=== PATIENT | male | born 1960 | race Caucasian/White ===

== ENCOUNTER 2019-11-26 06:29 | Inpatient (IN) ==
--- NOTE | 2019-11-18 13:28 | History & Physical Report ---
Date of Service November 18, 2019 date of surgery: 11-26-19 Assessment & Plan (1) Degenerative arthritis of knee, bilateral: Risks and benefits of procedure discussed in detail today, patient would like to proceed with Bilateral total knee replacements at [facility] as scheduled. Will obtain PATs at [facility]. Will place on Xarelto x 1 month post op, f/u 2 weeks post op for routine post-operative care and x-ray, sooner if having any problems. will make arrangements for HHPT at the time of discharge. At this point in time, has failed conservative measures and would like to proceed with surgical intervention. History of Present Illness Chief Complaint: bilateral knee pain Primary Care Provider: DO Ben Mendenhall is a 59 year old male that complains of Bilateral knee pain, presents for pre-op evaluation prior to Bilateral total knee replacements by dr Díaz at [facility]. He complains of pain, crepitus, decreased range of motion, instability and stiffness in both knees. He states that the symptoms have been chronic and non- traumatic. He states that the symptoms occur constantly with intermittent worsening. Currently the patient states that the symptoms are moderate-severe. The pain is described as aching, sharp and throbbing. The symptoms occur continuously. The symptoms are aggravated by ascending stairs, daily activities, first steps while awake walking. Prior NSAIDs include IBU and Aleve. He has been treated with previous cortisone and visco injections in the past without much relief. Allergies Allergy/AdvReac Type Severity Reaction Status Date / Time No Known Allergies Allergy Verified 08/06/19 11:41 Home Medications Home Medications Medication Instructions Recorded Confirmed Type meloxicam 15 mg PO QAM PRN 08/06/19 08/06/19 History Past Med/Surg History Social History Preferred Language: Bangladeshi Communication Ability: Effective Medical Auditor Required: No Beliefs That Will Affect Care: None Current Living Situation: Spouse Feels Safe at Home: Yes Smoking Status: Never smoker Tobacco Type: smokeless tobacco ; Second Hand Exposure: No ; Hx Alcohol Use: Yes Alcohol type: beer Hx Substance Use: No Review of Systems Review of Systems: All systems reviewed & are unremarkable except as noted in HPI & below Constitutional: no fever, no chills and no sweats Respiratory: no cough and no dyspnea Cardiovascular: no chest pain, no dyspnea and no orthopnea Gastrointestinal: no abdominal pain, no nausea and no vomiting Musculoskeletal: as per Subjective / HPI Physical Exam Physical Exam: Ht: 6ft Wt: 104.3kg BP: 122/78 Pulse: 82 Constitutional: WD/WN, vitals as above no acute distress Respiratory: normal respiratory effort, lungs clear to auscultation no respiratory distress, no labored breathing and does not use accessory muscles Cardiovascular: RRR, no murmur, no edema Gastrointestinal (Abdomen): normal bowel sounds, soft, nontender, no hepatosplenomegaly Musculoskeletal: Bilateral knee Physical exam Overall varus alignment bilaterally, there is no atrophy or ecchymosis noted, he does have +2 suprapatellar effusion in both knees, tenderness present to both medial and lateral joint lines of the right knee, more medial sided tenderess to the left knee. negative patellar apprehension, he does have crepitation noted to both knees with active ROM. bilateral knees stable to valgus and varus stress, oneal negative, posterior drawer negative. Range of motion right knee 0/3/110, left knee 0/3/115. lower extremities are neurovascularly intact, calf soft and non tender, DP pulse +2 bilaterally. Results & Data Results & Data ([facility]) Diagnostic Findings Bilateral Knee X-ray: bilateral knee series confirm advanced degenerative changes bilateral knees, greatest medial compartments and patellofemoral joints, showing joint space narrowing, osteophyte formation and subchondral sclerosis. no acute bony pathology noted.
--- NOTE | 2019-11-22 08:49 | Anesthesiology Consultation ---
Date of Service November 22, 2019 Assessment & Plan (1) Encounter for pre-operative examination: Chart Review Chart Review: Acceptable Risk for Surgery (pending 11/21 Covid testing) and Patient NOT seen in Pre Admission Testing Per nursing assessment 11/21/19, no recent travel. Preop Covid testing being done at [facility] on 11/21. Seen by PCP 08/16/19= "Pt medically stable for planned procedure" History Surgery Operation Date: 11/26/19 08:45 Proposed Procedures p Bilateral Total Knee Arthroplasty - Ben Díaz DO Height/Weight Height: 6 ft Weight: 102.058 kg Allergies Allergy/AdvReac Type Severity Reaction Status Date / Time No Known Allergies Allergy Verified 11/21/19 15:43 Medications Home Medications Medication Instructions Recorded Confirmed Last Taken meloxicam 15 mg PO QAM PRN 08/06/19 11/21/19 Unknown Past Medical History Medical History Osteoarthritis Past Family History Family History Grandmother (Paternal) Diabetes Past Surgical History Surgical History History of adenoidectomy History of tonsillectomy History of tooth extraction Social History Smoking Status: Never smoker tobacco type: smokeless tobacco Do You Dip or Chew Tobacco: No (1 can per day) Hx Alcohol Use: Yes Alcohol type: beer alcohol intake frequency: a few times a month Hx Substance Use: No substance use type: does not use Testing Laboratory Results Laboratory Tests 11/14/19 11/14/19 11/14/19 17:13 17:13 17:13 WBC 7.38 Hgb 14.8 Hct 42.9 Plt Count 279 PT 11.7 INR 1.1 APTT 29.4 Sodium 139 Potassium 3.6 Chloride 108 H Carbon Dioxide 26 BUN 18 Creatinine 0.94 Glucose 95 Hemoglobin A1c 11/14/19 17:13 WBC Hgb Hct Plt Count PT INR APTT Sodium Potassium Chloride Carbon Dioxide BUN Creatinine Glucose Hemoglobin A1c 5.1 UA 11/14/19= Negative Electrocardiogram Date: 08/12/19 Findings: + SB @ (57) Chest X-Ray Date: 08/12/19 Findings: + NAD
[~2019-11-26 06:29] MED LIST: ACETAMINOPHEN 500 MG TAB PO SCH; CEFAZOLIN 2000MG 2,000 MG/15 ML SYR IV SCH; CeleBREX 200 MG CAP PO SCH; FAMOTIDINE 20 MG TAB PO SCH; GABAPENTIN 600 MG DOSE PO SCH; LR 500ML BOLUS, THEN 15ML/HR IV SCH; METOCLOPRAMIDE HCL 10 MG TABLET PO SCH; OXYCODONE HCL 10 MG TABCR (OXYCONTIN) PO SCH; ROPIVACAINE 0.5% HCL/PF 150 MG, BUPIVACAINE 0.5% MPF 30 ML, EPINEPHrine 30MG/30ML (OR U... INSTIL SCH; TRANEXAMIC ACID 1,000 MG **IV Intra-op IV SCH; TRANEXAMIC ACID 1,000 MG **IV Pre-op IV SCH
[2019-11-26] MEDS ORDERED: BUPIVACAINE 0.5 % 5 MG/1 ML PF 10ML VIAL ONE (06:39)
[2019-11-26] MEDS ORDERED: ROPIVACAINE 0.5% 5 MG/ML 30 ML VIAL ONE (06:39)
[2019-11-26] MEDS ORDERED: MIDAZOLAM HCL 1 MG/ML 2ML VIAL ONE (07:20)
[2019-11-26] MEDS ORDERED: PROPOFOL IV EMULSION 10 MG/ML 20 ML VIAL IV ONE ×2 (07:20→12:35)
[2019-11-26] MEDS ORDERED: LIDOCAINE HCL 2% 2 ML VIAL/AMP(20MG/ML) INFIL ONE (07:20)
--- NOTE | 2019-11-26 07:20 | History & Physical Bridge Note ---
Date of Service November 26, 2019 History & Physical Bridge Note I have examined the patient, reviewed the History & Physical and in the interval since the performance of the History & Physical I have noted the following changes of clinical significance: no changes noted
[2019-11-26] MEDS ORDERED: ORTHO JOINT ANESTHETIC ONE (08:06)
[2019-11-26] MEDS ORDERED: BACITRACIN INJ 50,000 UNIT VIAL ONE (08:06)
--- NOTE | 2019-11-26 12:24 | Operative Report ---
Post Operative Report Pre & Post Diagnosis Operation Date: 11/26/19 08:35 Pre-Op Diagnosis: Bilateral Knee Osteoarthritis Post-Op Diagnosis: Bilateral Knee Osteoarthritis I identified the patient and participated in the time-out.: Yes Procedure Operation Date: 11/26/19 08:35 Actual Procedures p Bilateral Total Knee Arthroplasty(Bilateral) utilizing [employer]ph[employer] 101 journey 2 with blocks patient matched total knee arthroplasty right size 9 femur size 8 tibia size 10 polyethylene/41 patella left size 9 femur size 8 tibia size 11 polyethylene/41 patella- Ben Díaz DO Surgeon Ben Díaz DO Air Route Controller Hussein MUNGUIA Estimated Blood Loss 20 Findings Consistent with Post-Op Diagnosis Patient presents with severe end-stage tricompartmental degenerative joint disease bilateral knees with bilateral varus alignment subchondral osteophytes marginal osteophytes subchondral sclerosis with cystic changes eburnated [id number] varus alignment and moderate to large effusion Specimens Bone and cartilage Drains Medium bore Hemovac Anesthesia Type MAC Spinal Regional Disposition Accompanied Patient To Recovery: Yes Disposition: Recovery Room Indications Patient has severe end-stage tricompartmental degenerative joint disease with failed attempted conservative management daily injections anti-inflammatories relative rest activity modification corticosteroid injection bracing relative rest activity modification patient presents with the above intraoperative findings Description of Procedure After proper prepping and draping of the bilateral lower extremities, an anterior midline incision was made over the region of the extensor extensor mechanism of the left knee. After meticulous hemostasis was obtained and maintained in subcutaneous tissues a medial parapatellar incision was made The patella was subluxed lateralward the medial lateral gutter were cleaned from any hypertrophic synovitis and scar tissue of the distal femoral block was placed and the distal femoral osteotomy cut was made subsequently the chamfers anterior and posterior osteotomy cuts were made utilizing the 4-in-1 block the tibia was subsequently subluxed anteriorward medial and ateral meniscal remnants were excised in their entirety remnants of the anterior and posterior cruciate ligaments were excised in their entirety excellent exposure of the proximal tibia was obtained the tibial osteotomy guide was placed on the proximal tibial osteotomy cut was made once again the knee was irrigated with copious amounts of sterile saline solution the patella was subsequently everted lateralward thickened scar tissue around the patella was removed the patella was subsequently cut utilizing a freehand technique and was drilled prepared for final preparation and placement of patella socially flexion-extension gaps were checked and the equal and symmetric trials were placed to the appropriate femoral and tibial trials with poly-spacer being placed for equal flexion and extension gaps and full range of motion including extension to 0 and flexion to 140 the trial components after having been taken to recovery range of motion was subsequently removed meticulous hemostasis was obtained and maintained subsequently a knee block injection of joint cocktail including ropivacaine 0.5% 150 mg. Bupivacaine 0.5% epinephrine 1-200,030 mL's toradol 30 mg dexamethasone 4 mg ketamine 10 mg clonidine 100 micrograms normal saline solution 30 mg was infiltrated into the soft tissues of the posterior knee medial lateral gutters and periosteal synovium special attention was paid to protect neurovascular structures at all times subsequently trial components having been removed the knee was irrigated with sterile saline solution. debris was removed the proximal tibia was subsequently prepared and was made ready for the placement of the tibial component tibial component was also cemented and tamped into position the femoral component was subsequently placed and cemented in the position the patellar component was subsequently cemented in position because hemostasis once again obtained and maintained wound having been thoroughly irrigated with debridement and debridement lavage was performed as well as a medial parapatellar incision closed with #1 Vicryl in interrupted fashion subcutaneous was closed with #2 Vicryl skin was closed with skin clips Next, an anterior midline incision was made over the region of the extensor extensor mechanism of the right knee. After meticulous hemostasis was obtained and maintained in subcutaneous tissues a medial parapatellar incision was made The patella was subluxed lateralward the medial lateral gutter were cleaned from any hypertrophic synovitis and scar tissue of the distal femoral block was placed and the distal femoral osteotomy cut was made subsequently the chamfers anterior and posterior osteotomy cuts were made utilizing the 4-in-1 block the tibia was subsequently subluxed anteriorward medial and ateral meniscal remnants were excised in their entirety remnants of the anterior and posterior cruciate ligaments were excised in their entirety excellent exposure of the proximal tibia was obtained the tibial osteotomy guide was placed on the proximal tibial osteotomy cut was made once again the knee was irrigated with copious amounts of sterile saline solution the patella was subsequently everted lateralward thickened scar tissue around the patella was removed the patella was subsequently cut utilizing a freehand technique and was drilled prepared for final preparation and placement of patella socially flexion-extension gaps were checked and the equal and symmetric trials were placed to the appropriate femoral and tibial trials with poly-spacer being placed for equal flexion and extension gaps and full range of motion including extension to 0 and flexion to 140 the trial components after having been taken to recovery range of motion wa s subsequently removed meticulous hemostasis was obtained and maintained subsequently a knee block injection of joint cocktail including ropivacaine 0.5% 150 mg. Bupivacaine 0.5% epinephrine 1-200,030 mL's toradol 30 mg dexamethasone 4 mg ketamine 10 mg clonidine 100 micrograms normal saline solution 30 mg was infiltrated into the soft tissues of the posterior knee medial lateral gutters and periosteal synovium special attention was paid to protect neurovascular structures at all times subsequently trial components having been removed the knee was irrigated with sterile saline solution. debris was removed the proximal tibia was subsequently prepared and was made ready for the placement of the tibial component tibial component was also cemented and tamped into position the femoral component was subsequently placed and cemented in the position the patellar component was subsequently cemented in position because hemostasis once again obtained and maintained wound having been thoroughly irrigated with debridement and debridement lavage was performed as well as a medial parapatellar incision closed with #1 Vicryl in interrupted fashion subcutaneous was closed with #2 Vicryl skin was closed with skin clips.. PA-C was necessary for prepping and drapping as well as wound closure of deep fascia Sub cutaneous tissue and skin and was necessary for the case. A sterile compressive dressings were placed, patient was taken to recovery in stable condition of report dictated by Arjun I attest to the content of the Intraoperative Record and any orders documented therein. Any exceptions are noted below. I attest to the content of the Intraoperative Record and any orders documented therein. Any exceptions are noted below.
--- NOTE | 2019-11-26 13:35 | XRay Report ---
XR knee RT 1 or 2V routine CLINICAL HISTORY: Surgical Post Op COMPARISON: None FINDINGS: Alignment of the total right knee arthroplasty is anatomic. There is no fracture or unexpe cted radiopaque foreign body. There are drains and skin natasha. IMPRESSION: Expected findings following total right knee arthroplasty. ACT 112: Negative or not required by law. Electronically signed by: Gary Davis M.D. 11/26/2019 1:34 PM
--- NOTE | 2019-11-26 13:36 | XRay Report ---
XR knee LT 1 or 2V routine CLINICAL HISTORY: Surgical Post Op COMPARISON: None. DISCUSSION: Anatomic alignment post total left knee arthroplasty. Could contact between prosthetic an d underlying bone. Expected soft tissue postoperative change. IMPRESSION: Anatomic alignment post total left knee arthroplasty. ACT 112: Negative or not required by law. The above report was generated using voice recognition software. It may contain grammatical, syntax or spelling errors. Electronically signed by: Jordan Solano M.D. 11/26/2019 1:35 PM
--- NOTE | 2019-11-26 14:22 | Anesthesiology Progress Note ---
Date of Service November 26, 2019 Anesthesia Post Procedure Vital Signs Vital Signs: Temp Pulse Pulse Resp BP Pulse Ox 11/26/19 14:15 42 L 17 99/68 L 97 11/26/19 14:05 36.1 C L 43 L 17 123/51 L 95 11/26/19 13:55 43 L 19 102/68 98 11/26/19 13:45 47 L 15 93/66 L 95 11/26/19 13:35 43 L 14 96/50 L 98 11/26/19 13:25 44 L 16 99/62 L 96 11/26/19 13:16 36.0 C L 46 L 19 93/60 L 96 11/26/19 06:45 36.8 C 64 18 111/79 97 Transfer of Care Handoff Completed per policy Notes Mental Status: alert / awake / arousable and participated in evaluation Patient Amnestic to Procedure: Yes Nausea / Vomiting: adequately controlled Pain: adequately controlled Airway Patency, RR, SpO2: stable & adequate BP & HR: stable & adequate Hydration State: stable & adequate Neuraxial Anesthesia: was administered and sensory block is resolving Anesthetic Complications: no major complications apparent
[2019-11-26] MEDS ORDERED: HYDROmorphone INJ 0.5 MG/0.5 ML SYR IV PRN (14:46)
[2019-11-26] MEDS ORDERED: MAGNESIUM HYDROXIDE SUSP 30 ML UDC PO PRN (14:46)
[2019-11-26] MEDS ORDERED: NALOXONE HCL 0.4 MG/1 ML VIAL/CARP IV PRN (14:46)
[2019-11-26] MEDS ORDERED: bisacodyL 10 MG SUPP PR PRN (14:46)
[2019-11-26] MEDS ORDERED: ONDANSETRON INJ 2 MG/ML 2 ML VIAL IV PRN (14:46)
[2019-11-26] MEDS: ACETAMINOPHEN 500 MG TAB PO SCH ×2 (16:10→23:25)
[2019-11-26] MEDS: KETOROLAC TROMETHAMINE 15 MG/ML VIAL IV SCH ×2 (16:11→21:21)
[2019-11-26] MEDS: CEFAZOLIN 2000MG 2,000 MG/15 ML SYR IV SCH (17:47)
[2019-11-26] MEDS: FERROUS GLUCONATE 324 MG TAB PO SCH (17:48)
[2019-11-26] MEDS: SENNA 8.6 MG TAB PO SCH (20:15)
[2019-11-26] MEDS: SODIUM CHLORIDE 0.9% 1000ML 1,000 ML IV SCH (20:15)
[2019-11-26] MEDS: DOCUSATE SODIUM 100 MG CAP PO SCH (20:15)
[2019-11-26] MEDS: OXYCODONE HCL IR 5 MG TAB (IMMEDIATE RELEASE) PO PRN (20:15)
[2019-11-27] MEDS: SODIUM CHLORIDE 0.9% 1000ML 1,000 ML IV SCH (02:07)
[2019-11-27] MEDS: CEFAZOLIN 2000MG 2,000 MG/15 ML SYR IV SCH (02:58)
[2019-11-27] MEDS: KETOROLAC TROMETHAMINE 15 MG/ML VIAL IV SCH ×4 (02:59→20:46)
[2019-11-27 05:31] LABS: Mean Corpuscular Hemoglobin 30.7 pg (25-34); Mean Corpuscular Hgb Conc 34.2 g/dL (32-36); Mean Corpuscular Volume 89.6 fL (80-100); Mean Platelet Volume 9.9 fL (7.4-10.4); Platelet Count 240 K/uL (130-400); RDW Coefficient of Variation 13.2 % (11.5-14.5); RDW Standard Deviation 43.2 fL (36.4-46.3); Red Blood Count 4.24 M/uL (4.7-6.1); White Blood Count 15.05 K/uL (4.8-10.8)
[2019-11-27 06:07] LABS: Calcium 8.4 mg/dl (8.5-10.1); Creatinine Clr Calc Pharmacy 96.6 ml/min; Est GFR (African American) 96.1; Est GFR (Non-African American) 82.9; Potassium 4.6 mmol/L (3.5-5.1)
[2019-11-27] MEDS: OXYCODONE HCL IR 5 MG TAB (IMMEDIATE RELEASE) PO PRN ×2 (07:28→22:23)
[2019-11-27] MEDS: ACETAMINOPHEN 500 MG TAB PO SCH ×3 (07:29→23:24)
--- NOTE | 2019-11-27 07:54 | Anesthesiology Progress Note ---
Date of Service November 27, 2019 Anesthesia Post Procedure Vital Signs Vital Signs: Temp Pulse Pulse Resp BP Pulse Ox 11/27/19 06:53 36.9 C 60 16 107/58 L 100 11/27/19 03:02 36.6 C 52 L 18 101/53 L 97 11/26/19 23:49 36.6 C 51 L 16 110/67 95 11/26/19 20:40 36.6 C 51 L 16 119/66 97 11/26/19 17:38 36.6 C 50 L 17 118/71 95 11/26/19 16:29 42 L 16 128/81 100 11/26/19 15:41 36.4 C L 41 L 15 123/76 98 11/26/19 15:00 36.5 C 41 L 17 117/72 97 11/26/19 14:30 36.4 C L 44 L 16 106/64 99 11/26/19 14:15 42 L 17 99/68 L 97 11/26/19 14:05 36.1 C L 43 L 17 123/51 L 95 11/26/19 13:55 43 L 19 102/68 98 11/26/19 13:45 47 L 15 93/66 L 95 11/26/19 13:35 43 L 14 96/50 L 98 11/26/19 13:25 44 L 16 99/62 L 96 11/26/19 13:16 36.0 C L 46 L 19 93/60 L 96 Pain Intensity Bilateral Knee: Pain Intensity: 0 Notes Mental Status: alert / awake / arousable and participated in evaluation Patient Amnestic to Procedure: Yes Nausea / Vomiting: adequately controlled Pain: adequately controlled Airway Patency, RR, SpO2: stable & adequate BP & HR: stable & adequate Hydration State: stable & adequate Neuraxial Anesthesia: was administered and sensory block resolved Anesthetic Complications: no major complications apparent
[2019-11-27] MEDS: DOCUSATE SODIUM 100 MG CAP PO SCH ×2 (08:43→20:46)
[2019-11-27] MEDS: FERROUS GLUCONATE 324 MG TAB PO SCH ×2 (08:43→17:22)
[2019-11-27] MEDS: RIVAROXABAN 10 MG TABLET PO SCH (08:43)
[2019-11-27] MEDS: MULTIVITAMIN TAB PO SCH (08:43)
--- NOTE | 2019-11-27 09:48 | Orthopedic Progress Note ---
Date of Service November 27, 2019 Assessment & Plan (1) History of total bilateral knee replacement: POD #1 s/p bilateral TKA pt/ot dvt proph with LUAN/SCD/xarelto x 2 weeks plan for d/c home with home health when stable Admission and Anticipated Discharge Date Admission Date: November 26, 2019 Subjective POD #1 s/p Bilateral TKA Review of Systems Constitutional: no fever, no chills and no sweats Respiratory: no cough and no dyspnea Cardiovascular: no chest pain and no dyspnea Gastrointestinal: no abdominal pain, no nausea and no vomiting Physical Exam Physical Exam: Vital Signs Temp 36.9 C 11/27/19 06:53 Pulse 53 L 11/27/19 09:45 Resp 16 11/27/19 06:53 BP 93/58 L 11/27/19 09:45 Pulse Ox 100 11/27/19 06:53 Intake & Output 11/26/19 11/27/19 11/27/19 18:59 06:59 18:59 Intake Total 2400 / 3253.333 853.333 / 3253.333 Output Total 860 / 2785 1925 / 2785 445 / 445 Balance 1540 / 468.333 -1071.667 / 468.33 3 -445 / -445 Weight 99.2 kg Intake: IV 1200 / 1953.333 753.333 / 1953.333 Lr 1,000 ml @ 15 mls/hr IV . 1000 / 1000 Q24H [facility] Rx#:[id number] Nss 1000ML 1,0 00 ml @ 100 mls/ 753.333 / 753.333 hr IV .Q10H [facility] Rx#:[id number] TRANEXAMIC ACI D / 0.7% NACL 1, 200 / 200 000 mg In 100 ml @ 600 mls/hr IV TODAY@0600 [facility] Rx#:[id number] IV Perioperative 1200 / 1200 Oral 100 / 100 Output: Urine 775 / 775 Estimated Blood Loss 20 / 20 Urine Amount (Ca theter) 700 / 700 Straight 700 / 700 Drain Output 140 / 1290 1150 / 1290 445 / 445 Left Knee Hemo vac #2 40 / 690 650 / 690 200 / 200 Right Knee Hem ovac #1 100 / 600 500 / 600 245 / 245 Other: # Unmeasured Voi ds 1 Constitutional: WD/WN, vitals as above + not well nourished and no acute distress Musculoskeletal: Bilateral lower extremities: NVDI, calf SNT bilateral, negative tristen signs. DP palpable, able to wiggle toes/ankle movement without difficulty. dressings are clean dry and intact. Results & Data ([facility]) Vital Signs (Past 12 Hours) Vital Signs Temp Pulse Resp BP Pulse Ox 11/27/19 09:45 53 L 93/58 L 11/27/19 06:53 36.9 C 60 16 107/58 L 100 11/27/19 03:02 36.6 C 52 L 18 101/53 L 97 11/26/19 23:49 36.6 C 51 L 16 110/67 95 Laboratory Results Laboratory Results WBC 15.05 K/uL (4.8-10.8) H 11/27/19 05:09 RBC 4.24 M/uL (4.7-6.1) L 11/27/19 05:09 Hgb 13.0 g/dL (14.0-18.0) L 11/27/19 05:09 Hct 38.0 % (42-52) L 11/27/19 05:09 MCV 89.6 fL (80-100) 11/27/19 05:09 MCH 30.7 pg (25-34) 11/27/19 05:09 MCHC 34.2 g/dL (32-36) 11/27/19 05:09 RDW Std Deviation 43.2 fL (36.4-46.3) 11/27/19 05:09 RDW Coeff of David 13.2 % (11.5-14.5) 11/27/19 05:09 Plt Count 240 K/uL (130-400) 11/27/19 05:09 MPV 9.9 fL (7.4-10.4) 11/27/19 05:09 Sodium 140 mmol/L (136-145) 11/27/19 05:09 Potassium 4.6 mmol/L (3.5-5.1) 11/27/19 05:09 Chloride 107 mmol/L (98-107) 11/27/19 05:09 Carbon Dioxide 27 mmol/L (21-32) 11/27/19 05:09 Anion Gap 6.0 (3-11) 11/27/19 05:09 BUN 17 mg/dl (7-18) 11/27/19 05:09 Creatinine 0.98 mg/dl (0.6-1.4) 11/27/19 05:09 Est Cr Clr Drug Dosing 96.6 ml/min 11/27/19 05:09 Est GFR ( Amer) 96.1 11/27/19 05:09 Est GFR (Non-Af Amer) 82.9 11/27/19 05:09 BUN/Creatinine Ratio 17.0 (10-20) 11/27/19 05:09 Glucose 100 mg/dl (70-99) H 11/27/19 05:09 Calcium 8.4 mg/dl (8.5-10.1) L 11/27/19 05:09
[2019-11-27] MEDS: SENNA 8.6 MG TAB PO SCH (20:46)
[2019-11-28] MEDS: KETOROLAC TROMETHAMINE 15 MG/ML VIAL IV SCH ×2 (04:55→09:17)
--- NOTE | 2019-11-28 07:49 | Orthopedic Progress Note ---
Date of Service November 28, 2019 Assessment & Plan (1) History of total bilateral knee replacement: POD #2 s/p bilateral TKA -Patient continues to get lightheadedness off and on while ambulating. Plan to recheck CBC and BMP. Possibility of a fluid bolus if needed. We will see how he does with physical therapy today. pt/ot dvt proph with LUAN/SCD/xarelto x 2 weeks plan for d/c home with home health when stable Admission and Anticipated Discharge Date Admission Date: November 26, 2019 Subjective Postop day 2 status post bilateral total knee arthroplasty. Patient is currently sitting up in bed. He states that he was able to get up on his own this morning and ambulate to the bathroom. Near the end of his visit to the bathroom, the patient states that he felt he was getting a little bit lightheaded. Nursing was there to help him and states that the patient was able to get back to his bed without difficulty. Blood pressures were taken at that time and nursing stated that the blood pressure was stable. Patient had this happen to him yesterday. He denies any shortness of breath or chest pain. Denies calf tenderness. He is hoping to go home today. Physical Exam Physical Exam: Aba dressings are clean, dry, and intact. Mild swelling noted bilaterally. Calves are soft and nontender. Neurovascular is intact. Toes are mobile. He has good dorsiflexion and plantar flexion strength bilaterally. Results & Data ([facility]) Vital Signs (Past 12 Hours) Vital Signs Temp Pulse Resp BP Pulse Ox 11/28/19 06:45 36.6 C 61 18 117/67 95 11/27/19 23:30 36.9 C 65 18 110/68 96
[2019-11-28 08:25] LABS: Hematocrit (blood only) 31.9 % (42-52); Hemoglobin 10.6 g/dL (14.0-18.0); Mean Corpuscular Hemoglobin 29.5 pg (25-34); Mean Corpuscular Hgb Conc 33.2 g/dL (32-36); Mean Corpuscular Volume 88.9 fL (80-100); Mean Platelet Volume 9.8 fL (7.4-10.4); Platelet Count 225 K/uL (130-400); RDW Coefficient of Variation 13.1 % (11.5-14.5); RDW Standard Deviation 42.5 fL (36.4-46.3); Red Blood Count 3.59 M/uL (4.7-6.1); White Blood Count 13.18 K/uL (4.8-10.8)
[2019-11-28 08:57] LABS: BUN Creatinine Ratio 22.4 (10-20); Calcium 8.1 mg/dl (8.5-10.1); Creatinine Clr Calc Pharmacy 106.3 ml/min; Est GFR (Non-African American) 92.3; Potassium 3.6 mmol/L (3.5-5.1)
[2019-11-28] MEDS: DOCUSATE SODIUM 100 MG CAP PO SCH (09:17)
[2019-11-28] MEDS: FERROUS GLUCONATE 324 MG TAB PO SCH (09:17)
[2019-11-28] MEDS: RIVAROXABAN 10 MG TABLET PO SCH (09:17)
[2019-11-28] MEDS: ACETAMINOPHEN 500 MG TAB PO SCH ×2 (09:17→16:04)
[2019-11-28] MEDS: MULTIVITAMIN TAB PO SCH (09:17)
[2019-11-28] MEDS ORDERED: SODIUM CHLORIDE 0.9% 1000ML 500 ML IV ONE (11:43)
--- NOTE | 2019-12-01 10:37 | Discharge Summary ---
Date of Service December 01, 2019 Admission HPI Per Admitting Provider Ben is a 59 year old male that complains of Bilateral knee pain, presents for pre-op evaluation prior to Bilateral total knee replacements by dr Díaz at [facility]. He complains of pain, crepitus, decreased range of motion, instability and stiffness in both knees. He states that the symptoms have been chronic and non- traumatic. He states that the symptoms occur constantly with intermittent worsening. Currently the patient states that the symptoms are moderate-severe. The pain is described as aching, sharp and throbbing. The symptoms occur continuously. The symptoms are aggravated by ascending stairs, daily activities, first steps while awake walking. Prior NSAIDs include IBU and Aleve. He has been treated with previous cortisone and visco injections in the past without much relief. Admission Exam Per Admitting Provider Physical Exam: Ht: 6ft Wt: 104.3kg BP: 122/78 Pulse: 82 Constitutional: WD/WN, vitals as above no acute distress Respiratory: normal respiratory effort, lungs clear to auscultation no respiratory distress, no labored breathing and does not use accessory muscles Cardiovascular: RRR, no murmur, no edema Gastrointestinal (Abdomen): normal bowel sounds, soft, nontender, no hepatosplenomegaly Musculoskeletal: Bilateral knee Physical exam Overall varus alignment bilaterally, there is no atrophy or ecchymosis noted, he does have +2 suprapatellar effusion in both knees, tenderness present to both medial and lateral joint lines of the right knee, more medial sided tenderess to the left knee. negative patellar apprehension, he does have crepitation noted to both knees with active ROM. bilateral knees stable to valgus and varus stress, oneal negative, posterior drawer negative. Range of motion right knee 0/3/110, left knee 0/3/115. lower extremities are neurovascularly intact, calf soft and non tender, DP pulse +2 bilaterally. Principal Diagnosis Bilateral knee DJD Discharge Exam Addendum November 28, 2019 15:33 Recheck on patient this afternoon, feeling better. Light headedness improved aft er fluid bolus. Hemoglobin 10.6 down from 13 on POD#1 acute blood loss anemia likely due to surgical loss/dilutional. He did well with PT this afternoon. He denies complaints. No chest pain, sob, light headedness, n/v. Plan for discharge home today with HHPT. Addendum Signed By:<Electronically signed by Guille Velez >11/28/191534 Addendum Cosigned By:<Electronically signed by Conner Shepherd MD>11/29/19 1334 Created: 11/28/19 Date of Service November 28, 2019 Assessment & Plan (1) History of total bilateral knee replacement: POD #2 s/p bilateral TKA -Patient continues to get lightheadedness off and on while ambulating. Plan to recheck CBC and BMP. Possibility of a fluid bolus if needed. We will see how he does with physical therapy today. pt/ot dvt proph with LUAN/SCD/xarelto x 2 weeks plan for d/c home with home health when stable Admission and Anticipated Discharge Date Admission Date: November 26, 2019 Subjective Postop day 2 status post bilateral total knee arthroplasty. Patient is currently sitting up in bed. He states that he was able to get up on his own this morning and ambulate to the bathroom. Near the end of his visit to the bathroom, the patient states that he felt he was getting a little bit lightheaded. Nursing was there to help him and states that the patient was able to get back to his bed without difficulty. Blood pressures were taken at that time and nursing stated that the blood pressure was stable. Patient had this happen to him yesterday. He denies any shortness of breath or chest pain. Denies calf tenderness. He is hoping to go home today. Physical Exam Physical Exam: Bret dressings are clean, dry, and intact. Mild swelling noted bilaterally. Calves are soft and nontender. Neurovascular is intact. Toes are mobile. He has good dorsiflexion and plantar flexion strength bilaterally. Results & Data ([facility]) Vital Signs (Past 12 Hours) Vital Signs Temp Pulse Resp BP Pulse Ox 11/28/19 06:45 36.6 C 61 18 117/67 95 11/27/19 23:30 36.9 C 65 18 110/68 96 Discharge Data Allergies Allergy/AdvReac Type Severity Reaction Status Date / Time No Known Allergies Allergy Verified 11/26/19 06:54 Consultations 11/26/19 14:46 Consult Case Management - Discharge Planning Routine Procedures Performed Operation Date: 11/26/19 08:35 Actual Procedures p Bilateral Total Knee Arthroplasty(Bilateral) - Ben Díaz DO Ordered Studies 11/26/19 05:00 US - OR guided needle placemen Routine Hospital Course (1) Degenerative arthritis of knee, bilateral: Patient was admitted on the above-noted date and had the above-noted surgeries performed which he tolerated well.On his first postoperative day, he was without complaints and was denying shortness of breath, chest pain, lightheadedness. Pain was controlled. Vital signs are stable. Dressings were clean, dry, and intact. Neurovascular is intact. Calves are soft nontender. Hemoglobin was 13.0. White count was mildly elevated at 15 likely due to surgical stress and preoperative steroids. He was started on PT and OT protocols and continued on DVT prophylaxis and pain management. Plans were for home health services upon discharge. Just after having his physical therapy, the patient had a syncopal episode. He did not fall but was assisted down into his bed. The recent BP at that time was 110/66. He had no other symptoms at the time and was continued on his protocol. By his second postoperative day, he was currently sitting up in bed. He stated that he was able to get up on his own to the bathroom that morning without problem at the end of his visit to the bathroom though the patient said he felt he was getting a little bit lightheaded. Nursing was there to help him and states that the patient was able to get back to bed without difficulty. Blood pressures were taken at the time and were stable. Other symptoms and denied shortness of breath, chest pain. His bret dressings were intact and functioning. Mild swelling noted bilaterally of the knees but the calves are soft and nontender. Neurovascular is intact. Toes are mobile. He had good dorsiflexion and plantarflexion bilaterally. Vital signs are stable. He was given a bolus of 500 cc of normal saline and a recheck of his hemoglobin was 10.6 down from 13. This was not unusual for having bilateral total knee arthroplasty performed. Rechecked the patient later that afternoon he was feeling better he had no further lightheadedness after the fluid bolus. He had performed well with his physical therapy with no aftereffects and had no complaints. Was felt that he can be discharged home with home health services. Total Time Total Time Spent Total Time Spent (In Minutes): 5 Discharge Plan Discharge Items Patient Disposition: Home - Home Health Services Reason For Visit: BILATERAL KNEE OSTEOARTHRITIS Discharge Diagnosis: Bilateral total knee replacements Activity: Per Instructions section Lifting: Wait until after follow-up appointment Weightbearing: Full weightbearing, Left weightbearing and Right weightbearing Non-emergency contact: Surgeon Call non-emergency contact if: you have any medication questions, your pain is not controlled, your temperature is above 101, your wound has increased redness, your wound has increased drainage and your wound pain has increased Follow-up/Referrals: Ben Díaz DO [Surgeon] - (PATIENT WILL NEED FOLLOW UP VISIT; OFFICE CANCELLED ORIGINAL DUE TO COVID AND LACK OF OFFICE HOURS.) James Valle DO [Primary Care Provider] - Diet: Regular Addtl Attending Provider Instructions: ACTIVITY RECOMMENDATIONS: SELF CARE INSTRUCTIONS AFTER TOTAL KNEE REPLACEMENT A. You may need to continue a physical therapy program after discharge from the hospital. There are several options available to you. Your doctor will assist you in selecting the best one for you. 1. An out-patient facility 2 to 3 times a week for therapy or home therapy. 2. Continue working on all exercises taught to you in the hospital. Your goals should be to increase bending of your knee to 90 degrees and beyond and to fully straighten your knee. B. You may progress at your own pace from walking with a walker or crutches to a cane; then to no assistive devices. C. Make walking a part of your daily routine. Be up as much as comfortable with rest periods throughout the day. Rest with leg elevation is very important. Use the ice wrap frequently for the first 3-4 weeks. D. There are no restrictions on activities. You may ride in a car, shop, participate in shackler and all social activities. E. Wear the long elastic stockings (LUAN hose) 20 hours a day for 2 weeks after surgery. They can be removed several times a day for laundering and for a bath. F. You may shower, no tub baths until cleared by your doctor. SPECIAL CARE INSTRUCTIONS: VERY IMPORTANT TO READ AND REVIEW A. There are a few signs you need to watch for after you are home. Call [facility] if you notice any of the followin. Increased severe knee pain. Some pain is expected especially when you exercise. 2. Increased swelling in your leg or knee; pain or swelling of the calf muscle in either lower leg. 3. Any fluid drainage from the incision. 4. Shortness of breath or chest pain. B. Please call [facility] at if you have any concerns or questions about your operation or recovery. The doctor or his nurse will return your call promptly. C. You must take antibiotics before dental work, bladder, bowel or other surgery. Your doctor will provide you with a permanent care to carry describing this precaution. IMPORTANT: * REMEMBER TO TAKE ASPIRIN, 81 MG, TWICE DAILY FOR 4 WEEKS UNLESS OTHERWISE DIRECTED. THIS IS YOUR BLOOD THINNER. * HIGH RISK PATIENTS MAY BE PRESCRIBED A STRONGER BLOOD THINNER. THIS WILL BE PROVIDED AT DISCHARGE. * CALL IF INCREASED PAIN, REDNESS, DRAINAGE OR FEVER GREATER THAT 101. * WEAR LUAN HOSE 20 HOURS PER DAY FOR 2 WEEKS. This is a large suction dressing covering your incision. This will help pull any excess drainage from the wound and allow your incision to heal properly. You may shower with this if you can keep the unit outside of the shower. If any bleeding or leakage is noted please call your doctor's office. This will remain on your incision for 7 days and then should be removed. This can be done yourself or by the home nursing staff if applicable. The entire unit is disposable once removed. Once removed, keep incision clean and dry. If redness or drainage is noted, please call your surgeon. FOLLOW UP VISIT: If appointment is not already scheduled: Please call [facility] to make a follow-up appointment for 2 weeks after your surgery at . Stand-Alone Forms: My [employer], Opioid Pain Management, Smoking Cessation Medications and DC Order Prescriptions: New acetaminophen 500 mg Tablet 1,000 mg PO Q8H 30 Days Qty: 180 RF: 0 oxycodone 5 mg Tablet 5 - 10 mg PO Q6H PRN (Reason: pain) Qty: 30 RF: 0 Xarelto 10 mg Tablet 10 mg PO DAILY 14 Days Qty: 14 RF: 0 docusate sodium 100 mg Capsule 100 mg PO BID 10 Days Qty: 20 RF: 0 cefadroxil 500 mg capsule 500 mg PO BID 10 Days Qty: 20 RF: 0 Discontinued meloxicam 15 mg Tablet 15 mg PO QAM PRN (Reason: Pain) RF: 0 Discharge Orders: Discharge Order (Routine); Ordered 11/28/19 Ordered By: Guille Dumont/Other Patient Handouts: Preventing Deep Vein Thrombosis Admission Data Admit Date/Time: 11/26/19 13:12 Attending Provider: Ben Díaz Admit Provider: Ben Díaz Primary Care Provider: James Valle Other Providers: [place] Other Interventions: Discharge Summary Assessment (RN) Last Done: 11/28/19 15:46 DC Date/Time DO NOT enter until pt leaves facility: 11/28/19 16:37
== END 2019-11-28 16:37 | disposition home health service (06) | DRG 462 ==
LOC: ASU 06:29 → 3E 13:12
DX: M17.0 Bilateral primary osteoarthritis of knee

== ENCOUNTER 2020-04-20 16:27 | Inpatient (IN) ==
[2020-04-20 17:15] LABS: Basophils # (auto) 0.04 K/uL (0-0.2); Basophils % (auto) 0.3 %; Eosinophils # (auto) 0.08 K/uL (0-0.5); Eosinophils % (auto) 0.6 %; Hematocrit (blood only) 42.9 % (42-52); Hemoglobin 14.4 g/dL (14.0-18.0); Immature Granulocytes # (auto) 0.02 K/uL (0.00-0.02); Immature Granulocytes % (auto) 0.2 %; Lymphocytes # (auto) 1.31 K/uL (1.2-3.4); Mean Corpuscular Hemoglobin 27.5 pg (25-34); Mean Corpuscular Hgb Conc 33.6 g/dL (32-36); Mean Corpuscular Volume 81.9 fL (80-100); Mean Platelet Volume 9.6 fL (7.4-10.4); Monocytes # (auto) 1.28 K/uL (0.11-0.59); Monocytes % (auto) 9.7 %; Neutrophils # (auto) 10.42 K/uL (1.4-6.5); Neutrophils % (auto) 79.2 %; Platelet Count 326 K/uL (130-400); RDW Coefficient of Variation 14.4 % (11.5-14.5); RDW Standard Deviation 42.7 fL (36.4-46.3); Red Blood Count 5.24 M/uL (4.7-6.1); White Blood Count 13.15 K/uL (4.8-10.8)
[2020-04-20 17:32] LABS: Albumin Level 3.7 gm/dl (3.4-5.0); BUN Creatinine Ratio 15.1 (10-20); Calcium 9.2 mg/dl (8.5-10.1); Creatinine Clr Calc Pharmacy 88.9 ml/min; Est GFR (African American) 86.4; Est GFR (Non-African American) 74.5; Potassium 3.2 mmol/L (3.5-5.1)
[2020-04-20 17:35] LABS: Albumin Globulin Ratio 0.8 (0.9-2); Globulin 4.6 gm/dl (2.5-4.0); Total Protein 8.3 gm/dl (6.4-8.2)
[2020-04-20] MEDS ORDERED: AMPICILLIN/SULBACTAM SOD 3,000 MG in 0.9 % SODIUM CHLORIDE 100 ML IV STA (18:28)
--- NOTE | 2020-04-20 18:31 | XRay Report ---
RIGHT FOOT 3 VIEWS CLINICAL HISTORY: Ulceration of the first toe. FINDINGS: 3 views of the right foot are obtained. No prior studies are available for comparison at th e time of dictation. The skeletal structures are well mineralized. No fracture is seen. There is no b vance erosion or periostitis. Mild osteoarthritic change is seen at the first metatarsophalangeal joint . A small bony excrescence arises from the medial shaft of the first distal phalanx. There is a large plantar heel spur. Mild soft tissue swelling is suggested in the first toe. IMPRESSION: 1. No acute bony abnormalities identified. 2. There is a bony excrescence/possible exostosis arising from the medial aspect of the shaft of the first distal phalanx. If this is at the site of the ulceration this may contribute to a pressure/fric tion phenomenon leading to overlying soft tissue injury. Clinical correlation will be essential. 3. Mild soft tissue swelling is suggested in the first toe. Electronically signed by: Christ Warren M.D. 04/20/2020 6:29 PM
--- NOTE | 2020-04-20 19:00 | Emergency Department Note ---
History of Present Illness General Chief complaint: Infection, Wound Stated complaint: WOUND ON RIGHT FOOT, INFECTION Time Seen by Provider: 04/20/20 17:43 Source: patient Mode of arrival: ambulatory Limitations: no limitations History of Present Illness Maximum Pain Intensity: 2 This patient is a 59-year-old male comes in with an ulcer on the right big toe for about a year it is on the medial aspect. He said it initially was from an injury and just has not healed. He took antibiotics initially and he has been seen by his regular doctor as well as by foot doctor. 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 He had bilateral knee replacements done in August by Dr. Claudio is worried that if this is get infected he could get those infected. He has no knee pain. No systemic complaints no fever chills. No exposure to villalpando. No cough or shortness of breath. No chest pain. The ulcer has been there for a year and does appear to be more red and swollen than typical. Home Medications Home Medications Medication Instructions Recorded Confirmed Type oxycodone 5 - 10 mg PO Q6H PRN #30 tab 11/27/19 Rx amoxicillin-pot clavulanate 1 tab PO BID #20 tab 04/20/20 Rx [Augmentin] Allergies Allergy/AdvReac Type Severity Reaction Status Date / Time No Known Allergies Allergy Verified 11/26/19 06:54 Past Med/Surg History Medical History (Updated 04/20/20 @ 20:55 by Dean Quintero MD) Osteoarthritis Surgical History (Updated 11/27/19 @ 09:47 by Jordan Gorman PA-C) History of adenoidectomy History of tonsillectomy History of tooth extraction Family History Grandmother (Paternal) Diabetes Social History Smoking Status: Never smoker Second Hand Exposure: No; Hx Alcohol Use: Yes Alcohol type: beer Hx Substance Use: No Preferred Language: Serbian Communication Ability: Effective Autotransfusionist Required: No Beliefs That Will Affect Care: None marital status: Current Living Situation: Spouse Feels Safe at Home: Yes Assistive Devices: Glasses and Walker Physical Exam Vital Signs Vital Signs - 24 hr 04/20/20 16:35 04/20/20 20:14 Temperature 37.5 C Temperature Source Oral Pulse Rate 93 H Pulse Rate [Finger] 66 Respiratory Rate 18 20 Respiratory Effort / Characteristics Non-Labored Spontaneous Respiratory Depth Normal Blood Pressure 105/75 Blood Pressure [Right Arm] 131/81 Blood Pressure Mean 85 Blood Pressure Mean [Right Arm] 97 Blood Pressure Position Sitting Pulse Oximetry 95 95 Oxygen Delivery Method Room Air Room Air Sepsis Recent Fever Within 48 Hours No Sepsis New/Unexplained Change in Mental Status No Sepsis Action Taken by Nursing No Action Required General: Well developed well nourished not ill-appearing middle-age male who appears in no acute distress, breathing comfortably on room air. Normal speech HEENT: Normal cephalic atraumatic. Pupils are equal round and reactive to light. Extraocular movements are intact. Oropharynx is pink with moist mucous membranes. No swelling of the mouth lips or tongue. Neck: Supple with a midline trachea. No meningeal signs or stiffness, no JVD or bruits. No Stridor. Chest: Clear to auscultation bilaterally. No wheezes or rhonchi. No increased work of breathing. Heart: Regular rate and rhythm without murmurs or gallops. Abdomen: Soft nontender, nondistended without rebound guarding or rigidity. Extremities: No cyanosis clubbing or edema. No calf tenderness or assymetry. Ri ght foot is pink and well-perfused appearing good capillary refill and distal pulses. There is a moderate size ulcer on the lateral aspect of the great toe on the area of the distal and proximal phalanx. There is no purulent drainage. The toe itself is mildly red and there is a little bit of redness in the golden. There is no pus drainage. There is a large callus around the ulcer. Spine/Back. Non tender to palpation. No CVA tenderness Skin: Good turgor without rashes. Neurologic exam: Cranial nerves two through 12 are intact. Motor and sensation are intact and symmetrical throughout. Course Administered Medications Discontinued Medications Ampicillin Sodium/Sulbactam Sodium 3,000 mg/ Sodium Chloride 108 mls @ 200 mls/hr IV NOW STA; Protocol Stop: 04/20/20 19:00 Last Admin: 04/20/20 20:13 Dose: 200 mls/hr Documented by: [id number] Medical Decision Making Differential Diagnosis Ulcer, cellulitis, wound infection, osteomyelitis, trauma, Covid, electrolyte or metabolic abnormality, sepsis Medical Records Attestation: I reviewed the patient's medical records. Home Medications Current Medication List: was personally reviewed by me Laboratory Data Attestation: I reviewed the patient's lab results. Result diagrams: 04/20/20 17:04 04/20/20 17:04 Lab Results 04/20/20 04/20/20 04/20/20 Range/Units 17:04 17:04 18:10 WBC 13.15 H (4.8-10.8) K/uL RBC 5.24 (4.7-6.1) M/uL Hgb 14.4 (14.0-18.0) g/dL Hct 42.9 (42-52) % MCV 81.9 (80-100) fL MCH 27.5 (25-34) pg MCHC 33.6 (32-36) g/dL RDW Std Deviation 42.7 (36.4-46.3) fL RDW Coeff of David 14.4 (11.5-14.5) % Plt Count 326 (130-400) K/uL MPV 9.6 (7.4-10.4) fL Immature Gran % (Auto) 0.2 % Neut % (Auto) 79.2 % Lymph % (Auto) 10.0 % [place] % (Auto) 9.7 % Eos % (Auto) 0.6 % Baso % (Auto) 0.3 % Neut # (Auto) 10.42 H (1.4-6.5) K/uL Lymph # (Auto) 1.31 (1.2-3.4) K/uL [place] # (Auto) 1.28 H (0.11-0.59) K/uL Eos # (Auto) 0.08 (0-0.5) K/uL Baso # (Auto) 0.04 (0-0.2) K/uL Immature Gran # (Auto) 0.02 (0.00-0.02) K/uL Sodium 138 (136-145) mmol/L Potassium 3.2 L (3.5-5.1) mmol/L Chloride 107 (98-107) mmol/L Carbon Dioxide 23 (21-32) mmol/L Anion Gap 8.0 (3-11) BUN 16 (7-18) mg/dl Creatinine 1.07 (0.6-1.4) mg/dl Est Cr Clr Drug Dosing 88.9 ml/min Est GFR ( Amer) 86.4 Est GFR (Non-Af Amer) 74.5 BUN/Creatinine Ratio 15.1 (10-20) Glucose 110 H (70-99) mg/dl Lactate 1.2 (0.4-2.0) mmol/L Calcium 9.2 (8.5-10.1) mg/dl Total Bilirubin 1.0 (0.2-1) mg/dl AST 12 L (15-37) U/L ALT 15 (12-78) U/L Alkaline Phosphatase 115 (45-117) U/L Total Protein 8.3 H (6.4-8.2) gm/dl Albumin 3.7 (3.4-5.0) gm/dl Globulin 4.6 H (2.5-4.0) gm/dl Albumin/Globulin Ratio 0.8 L (0.9-2) Imaging Data Attestation: I personally reviewed and interpreted this imaging study as follows: My Impression: On review of the foot x-ray which I looked at and discussed with the radiologist on the phone. There is an osteophyte seen in the area near where the ulcer is which could be contributing to the ulcer area getting friction and reinjured with chronic use Radiologist's Impression: RIGHT FOOT 3 VIEWS CLINICAL HISTORY: Ulceration of the first toe. FINDINGS: 3 views of the right foot are obtained. No prior studies are available for comparison at the time of dictation. The skeletal structures are well mineralized. No fracture is seen. There is no bony erosion or periostitis. Mild osteoarthritic change is seen at the first metatarsophalangeal joint. A small bony excrescence arises from the medial shaft of the first distal phalanx. There is a large plantar heel spur. Mild soft tissue swelling is suggested in the first toe. IMPRESSION: 1. No acute bony abnormalities identified. 2. There is a bony excrescence/possible exostosis arising from the medial aspect of the shaft of the first distal phalanx. If this is at the site of the ulceration this may contribute to a pressure/friction phenomenon leading to overlying soft tissue injury. Clinical correlation will be essential. 3. Mild soft tissue swelling is suggested in the first toe. MRI OF THE RIGHT FOREFOOT WITHOUT IV CONTRAST CLINICAL HISTORY: First toe ulceration. COMPARISON STUDY: Radiographs of the right foot dated 04/20/2020. TECHNIQUE: MRI of the right forefoot is performed utilizing various T1 and T2-w eighted sequences in the axial, sagittal, and coronal planes. IV contrast was not administered for this examination. FINDINGS: There is marked marrow edema identified within the first proximal and distal phalanges. There is corresponding drop in signal on the T1-weighted sequences, and the appearance is concerning for osteomyelitis. The presumed exostosis arising medially from the shaft of the distal phalanx is not well visualized. This is best seen on coronal image #7. Diffuse soft tissue edema is seen in the forefoot. An ulceration is suggested along the medial aspect of the first toe at the level of the distal phalanx. There is no evidence of organized fluid collection to suggest abscess. There is a joint effusion at the first interphalangeal joint. No additional similar-appearing marrow changes are identified throughout the remainder of the forefoot. Milder superficial and deep soft tissue edema is seen throughout the midfoot, with edema throughout the midfoot musculature. Imaged portions of the plantar fascia appear intact. The visualized flexor and extensor tendons appear maintained. IMPRESSION: 1. There is marked marrow signal abnormality within the proximal and distal ph alanges of the first toe. This is highly concerning for osteomyelitis. 2. The exostosis arising from the medial aspect of the first distal phalanx is not well-visualized. This is better assessed on today's x-ray. 3. A cutaneous ulceration and soft tissue edema are noted throughout the first toe and are typical in appearance for cellulitis. Milder cellulitis is seen throughout the remainder of the forefoot. 4. No organized fluid collection is seen to suggest abscess. 5. There is a joint effusion at the first interphalangeal joint. 6. There is generalized myositis of the regional musculature MDM Narrative This patient comes in as described above. He was placed in room B7. He has an ulcer on his toe that is been aggravated by his chronic irritation in his work. It is looking more red and I do think he needs antibiotics. His white count is mildly elevated at 13 he was given IV Unasyn 3 g. His lactic acid is normal he looks well otherwise. His his x-ray shows an osteophyte which could be causing some irritation but no definite osteomyelitis. I did order MRI which however does show findings concerning for osteomyelitis. In light of this I do think he needs to be admitted for IV antibiotics and [facility] He is very reluctant to stay explained my concerns that he could go home and get worse or get infection and ultimately lose his foot or toe or get his knee infected he did talk to his and is willing to stay tonight. He will as well and need further antibiotics will likely need additional broaden coverage such as vancomycin I did discuss with Dr. Tinajero he said he will see him first and order this. Impression & Plan Osteomyelitis, Chronic foot ulcer, Cellulitis Discharge Plan Visit Data Chief Complaint: Infection, Wound Stated Complaint: WOUND ON RIGHT FOOT, INFECTION ED Provider: Dean Quintero Discharge Problem: Osteomyelitis, Chronic foot ulcer, Cellulitis Discharge Instructions Activity Restrictions/Additional Instructions: Rest. Try to stay off as much as you can and keep elevated when you are not on it. Use Augmentin 875 mg twice a day for 10 daysantibiotic Follow-up with wound clinic this week and/or your regular doctor for follow-up Return to the ER if: Increasing redness or warmth, fever chills, any new problems or concerns. Forms Stand Alone Forms: My [facility] Prescriptions Prescriptions: New amoxicillin-pot clavulanate [Augmentin] 875-125 mg tablet 1 tab PO BID Qty: 20 RF: 0 No Action oxycodone 5 mg Tablet 5 - 10 mg PO Q6H PRN (Reason: pain) Qty: 30 RF: 0 Referrals Referrals: James Valle DO [Primary Care Provider] - Discharge Problem: Osteomyelitis Qualifiers: Osteomyelitis type: unspecified type Osteomyelitis location: foot Laterality: right Qualified Code(s): M86.9 - Osteomyelitis, unspecified Chronic foot ulcer Qualifiers: Laterality: right Non-pressure ulcer stage: with fat layer exposed Qualified Code(s): L97.512 - Non-pressure chronic ulcer of other part of right foot with fat layer exposed Cellulitis Qualifiers: Site of cellulitis: extremity Site of cellulitis of extremity: lower extremity Laterality: right Qualified Code(s): L03.115 - Cellulitis of right lower limb
[2020-04-20] MEDS ORDERED: AMOXICILLIN/CLAVULANATE 875MG HOME PACK PO ONE (20:24)
--- NOTE | 2020-04-20 20:31 | Magnetic Resonance Report ---
MRI OF THE RIGHT FOREFOOT WITHOUT IV CONTRAST CLINICAL HISTORY: First toe ulceration. COMPARISON STUDY: Radiographs of the right foot dated 04/20/2020. TECHNIQUE: MRI of the right forefoot is performed utilizing various T1 and T2-weighted sequences in t he axial, sagittal, and coronal planes. IV contrast was not administered for this examination. FINDINGS: There is marked marrow edema identified within the first proximal and distal phalanges. The re is corresponding drop in signal on the T1-weighted sequences, and the appearance is concerning for osteomyelitis. The presumed exostosis arising medially from the shaft of the distal phalanx is not w ell visualized. This is best seen on coronal image #7. Diffuse soft tissue edema is seen in the foref oot. An ulceration is suggested along the medial aspect of the first toe at the level of the distal p halanx. There is no evidence of organized fluid collection to suggest abscess. There is a joint effus ion at the first interphalangeal joint. No additional similar-appearing marrow changes are identified throughout the remainder of the forefoot. Milder superficial and deep soft tissue edema is seen thro ughout the midfoot, with edema throughout the midfoot musculature. Imaged portions of the plantar fas mario appear intact. The visualized flexor and extensor tendons appear maintained. IMPRESSION: 1. There is marked marrow signal abnormality within the proximal and distal phalanges of the first to e. This is highly concerning for osteomyelitis. 2. The exostosis arising from the medial aspect of the first distal phalanx is not well-visualized. T his is better assessed on today's x-ray. 3. A cutaneous ulceration and soft tissue edema are noted throughout the first toe and are typical in appearance for cellulitis. Milder cellulitis is seen throughout the remainder of the forefoot. 4. No organized fluid collection is seen to suggest abscess. 5. There is a joint effusion at the first interphalangeal joint. 6. There is generalized myositis of the regional musculature. Dictated: 04/20/2020 8:06 PM Transcribed: 04/20/2020 8:17 PM Shelly [id number] [email or web address] Electronically signed by: Christ Warren M.D. 04/20/2020 8:29 PM
[2020-04-20] MEDS ORDERED: POTASSIUM CHLORIDE CRTAB 20 MEQ TABCR PO STA (21:16)
[2020-04-20] MEDS ORDERED: KETOROLAC TROMETHAMINE 15 MG/ML VIAL IV STA (21:43)
--- NOTE | 2020-04-20 22:05 | History & Physical Report ---
Date of Service April 20, 2020 Assessment & Plan (1) Sepsis: Secondary to osteomyelitis right great toe hx chronic wound Lactic acidosis noted on blood work Hypokalemia Hyperglycemia rule out DM GMF Cultures, Daptomycin, Cefepime for now Orthopedics consult Re: Osteomyelitis right great toe N.p.o. until patient seen by Orthopedics in a.m. In anticipation of procedural intervention [facility] ID consult at some point during confinement regarding osteomyelitis. Replace potassium Check hemoglobin A1c DVT prophylaxis per Lovenox subcu Full code Text document was generated using [employer] voice recognition software. It may contain grammatical or spelling errors. Kindly contact undersigned for clarification of any documentation item in question. History of Present Illness Chief Complaint: Right big toe infection Primary Care Provider: James Valle DO History obtained from patient and records. Medical history significant for osteoarthritis, chronic right great toe wound. Last confinement November 2019 under Orthopedics service for bilateral total knee replacements. Patient has had an ulcerated wound on the right great toe for about a year now. Wound noted after pressure on his foot at work about a year ago. 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 A few courses of antibiotics. In the last week, patient noted increased redness and pain around chronic wound on right big toe with some clear drainage. No fever, no chills. No chest pain, no S OB. At the ER, patient received Unasyn. Medical History as above Surgical History : Knee surgeries Family History : stroke Personal/Social history : Non-smoker, no EtOH intake, [employer] employee Allergies Allergy/AdvReac Type Severity Reaction Status Date / Time No Known Allergies Allergy Verified 04/20/20 22:00 Home Medications Home Medications Medication Instructions Recorded Confirmed Type diclofenac sodium 1 g TOPICAL BID 04/20/20 04/20/20 History diclofenac sodium 75 mg PO BID PRN 04/20/20 04/20/20 History Past Med/Surg History Medical History (Updated 04/21/20 @ 10:12 by Magdalena Alvarenga DO) Osteoarthritis Surgical History (Updated 11/27/19 @ 09:47 by Jordan Gorman PA-C) History of adenoidectomy History of tonsillectomy History of tooth extraction Family History Grandmother (Paternal) Diabetes Social History Smoking Status: Never smoker Second Hand Exposure: No; Do You Dip or Chew Tobacco: Yes; Tobacco Cessation Education Requested by Patient: No Hx Alcohol Use: Yes Alcohol type: beer Hx Substance Use: No Preferred Language: Arabic Communication Ability: Effective Sales Representative [employer] Required: No Beliefs That Will Affect Care: None marital status: Current Living Situation: Spouse Feels Safe at Home: Yes Safety Concerns: Feels Safe At This Time Assistive Devices: None Assistive Devices Comment: readers Review of Systems Review of Systems: As per HPI, all 10 systems reviewed, all other ROS negative Physical Exam Physical Exam: GENERAL: Comfortable, no respiratory distress SKIN: Normal color, warm HEENT: [place] palpebral conjunctivae, no ptosis, dry buccal mucosa NECK : Supple, no tenderness CHEST : CTA, no tenderness HEART : RRR, no obvious murmurs ABDOMEN: Some distention, nontender EXTREMITIES : No LE swelling/tenderness, ulcerated wound on right great toe with some induration and tenderness, palpable pedal pulses, no other conspicuous deformities noted NEUROLOGIC : Coherent, no facial asymmetry, no other gross focality Results & Data Results & Data ([facility]) Vital Signs (Past 12 Hours) Vital Signs Temp Pulse Pulse Resp BP BP Pulse Ox 04/20/20 21:37 64 18 133/79 96 04/20/20 20:14 66 20 131/81 95 04/20/20 16:35 37.5 C 93 H 18 105/75 95 Laboratory Results Laboratory Results WBC 13.15 K/uL (4.8-10.8) H 04/20/20 17:04 RBC 5.24 M/uL (4.7-6.1) 04/20/20 17:04 Hgb 14.4 g/dL (14.0-18.0) 04/20/20 17:04 Hct 42.9 % (42-52) 04/20/20 17:04 MCV 81.9 fL (80-100) 04/20/20 17:04 MCH 27.5 pg (25-34) 04/20/20 17:04 MCHC 33.6 g/dL (32-36) 04/20/20 17:04 RDW Std Deviation 42.7 fL (36.4-46.3) 04/20/20 17:04 RDW Coeff of David 14.4 % (11.5-14.5) 04/20/20 17:04 Plt Count 326 K/uL (130-400) 04/20/20 17:04 MPV 9.6 fL (7.4-10.4) 04/20/20 17:04 Immature Gran % (Auto) 0.2 % 04/20/20 17:04 Neut % (Auto) 79.2 % 04/20/20 17:04 Lymph % (Auto) 10.0 % 04/20/20 17:04 [place] % (Auto) 9.7 % 04/20/20 17:04 Eos % (Auto) 0.6 % 04/20/20 17:04 Baso % (Auto) 0.3 % 04/20/20 17:04 Neut # (Auto) 10.42 K/uL (1.4-6.5) H 04/20/20 17:04 Lymph # (Auto) 1.31 K/uL (1.2-3.4) 04/20/20 17:04 [place] # (Auto) 1.28 K/uL (0.11-0.59) H 04/20/20 17:04 Eos # (Auto) 0.08 K/uL (0-0.5) 04/20/20 17:04 Baso # (Auto) 0.04 K/uL (0-0.2) 04/20/20 17:04 Immature Gran # (Auto) 0.02 K/uL (0.00-0.02) 04/20/20 17:04 Sodium 138 mmol/L (136-145) 04/20/20 17:04 Potassium 3.2 mmol/L (3.5-5.1) L 04/20/20 17:04 Chloride 107 mmol/L (98-107) 04/20/20 17:04 Carbon Dioxide 23 mmol/L (21-32) 04/20/20 17:04 Anion Gap 8.0 (3-11) 04/20/20 17:04 BUN 16 mg/dl (7-18) 04/20/20 17:04 Creatinine 1.07 mg/dl (0.6-1.4) 04/20/20 17:04 Est Cr Clr Drug Dosing 88.9 ml/min 04/20/20 17:04 Est GFR ( Amer) 86.4 04/20/20 17:04 Est GFR (Non-Af Amer) 74.5 04/20/20 17:04 BUN/Creatinine Ratio 15.1 (10-20) 04/20/20 17:04 Glucose 110 mg/dl (70-99) H 04/20/20 17:04 Lactate 1.2 mmol/L (0.4-2.0) 04/20/20 18:10 Calcium 9.2 mg/dl (8.5-10.1) 04/20/20 17:04 Total Bilirubin 1.0 mg/dl (0.2-1) 04/20/20 17:04 AST 12 U/L (15-37) L 04/20/20 17:04 ALT 15 U/L (12-78) 04/20/20 17:04 Alkaline Phosphatase 115 U/L (45-117) 04/20/20 17:04 Total Protein 8.3 gm/dl (6.4-8.2) H 04/20/20 17:04 Albumin 3.7 gm/dl (3.4-5.0) 04/20/20 17:04 Globulin 4.6 gm/dl (2.5-4.0) H 04/20/20 17:04 Albumin/Globulin Ratio 0.8 (0.9-2) L 04/20/20 17:04 Diagnostic Findings Right foot MRI: 1. There is marked marrow signal abnormality within the proximal and distal phalanges of the first toe. This is highly concerning for osteomyelitis. 2. The exostosis arising from the medial aspect of the first distal phalanx is not well-visualized. This is better assessed on today's x-ray. 3. A cutaneous ulceration and soft tissue edema are noted throughout the first toe and are typical in appearance for cellulitis. Milder cellulitis is seen throughout the remainder of the forefoot. 4. No organized fluid collection is seen to suggest abscess. 5. There is a joint effusion at the first interphalangeal joint. 6. There is generalized myositis of the regional musculature.
[2020-04-20] MEDS ORDERED: DAPTOmycin 1 MG in SYRINGE 0 ML IV ONE (22:12)
[2020-04-20] MEDS ORDERED: DAPTOmycin 475 MG in SYRINGE 0 ML IV STA (22:42)
[2020-04-20] MEDS ORDERED: LACTATED RINGER'S 1,000 ML IV ONE (22:51)
[2020-04-21] MEDS ORDERED: INFLUENZA VIRUS QUAD VACCINE 0.5 ML SYR IM ONE (01:02)
[2020-04-21] MEDS ORDERED: INFLUENZA ADMINISTRATION CHARGE ONE (01:02)
[2020-04-21] MEDS ORDERED: DICLOFENAC SODIUM 75 MG TABCR PO PRN (01:21)
[2020-04-21] MEDS ORDERED: oxyCODONE HCL IR 5 MG TAB (IMMEDIATE RELEASE) PO PRN (01:21)
[2020-04-21] MEDS ORDERED: POTASSIUM CHLORIDE 40 MEQ in SODIUM CHLORIDE 0.9% 1000ML 1,000 ML IV SCH (01:21)
[2020-04-21] MEDS ORDERED: PROMETHAZINE HCL 12.5 MG in SODIUM CHLORIDE 0.9% 50 ML IV PRN (01:21)
[2020-04-21] MEDS ORDERED: KETOROLAC TROMETHAMINE 15 MG/ML VIAL IV PRN (01:21)
[2020-04-21] MEDS ORDERED: ACETAMINOPHEN 325 MG TAB PO PRN (01:21)
[2020-04-21] MEDS ORDERED: CEFEPIME CONSULT ACTIVE PRN (01:50)
[2020-04-21 02:05] LABS: Basophils # (auto) 0.04 K/uL (0-0.2); Basophils % (auto) 0.5 %; Eosinophils # (auto) 0.25 K/uL (0-0.5); Eosinophils % (auto) 3.1 %; Hematocrit (blood only) 38.1 % (42-52); Hemoglobin 12.8 g/dL (14.0-18.0); Immature Granulocytes # (auto) 0.01 K/uL (0.00-0.02); Immature Granulocytes % (auto) 0.1 %; Lymphocytes # (auto) 1.58 K/uL (1.2-3.4); Lymphocytes % (auto) 19.9 %; Mean Corpuscular Hemoglobin 27.5 pg (25-34); Mean Corpuscular Hgb Conc 33.6 g/dL (32-36); Mean Corpuscular Volume 81.9 fL (80-100); Mean Platelet Volume 9.2 fL (7.4-10.4); Monocytes # (auto) 1.19 K/uL (0.11-0.59); Neutrophils # (auto) 4.88 K/uL (1.4-6.5); Neutrophils % (auto) 61.4 %; Platelet Count 266 K/uL (130-400); RDW Coefficient of Variation 14.5 % (11.5-14.5); RDW Standard Deviation 43.2 fL (36.4-46.3); Red Blood Count 4.65 M/uL (4.7-6.1); White Blood Count 7.95 K/uL (4.8-10.8)
[2020-04-21 02:23] LABS: BUN Creatinine Ratio 21.1 (10-20); Calcium 8.1 mg/dl (8.5-10.1); Creatinine Clr Calc Pharmacy 111.9 ml/min; Potassium 3.7 mmol/L (3.5-5.1)
[2020-04-21] MEDS: CEFEPIME 2,000 MG in SYRINGE 0 ML IV SCH ×3 (03:29→19:08)
[2020-04-21 06:12] LABS: Estimated Average Glucose 100 mg/dl; Hemoglobin A1C 5.1 % (4.5-5.6)
[2020-04-21] MEDS: DICLOFENAC SOD 1% GEL 100 GM TUBE EXT SCH ×2 (10:08→21:09)
--- NOTE | 2020-04-21 10:15 | Hospitalist Progress Note ---
Date of Service April 21, 2020 Assessment & Plan (1) Sepsis: Caught early and patient is now resuscitated and improved after broad spectrum abx were started. Leukocytosis has resolved. Foot MRI with osteopmyelitis of the first toe. Appreciate input from ortho and ID today. Will require a prolonged antibiotic course. Cont Dapto and Cefepime for now pending culture results and continued clinical improvement. Pain control as needed. (2) Chronic foot ulcer: Wound care PRN-this has been present for >1 year per records. Ortho is consulting orthotics as patient is very active and job requires him to wear work boots most of the time and stay on his feet. (3) Osteomyelitis: No surgery planned per ortho. ID consulted. Cultures pending. (4) History of total bilateral knee replacement: In November 2019 for severe OA. Diclofenac for pain control. (5) DVT prophylaxis: Lovenox. Full Code Dispo-to home when medically stable, likely tomorrow. Will need ID recs for abx course, a provider (likely outpatient PCP) to follow labs while patient is on prolonged antibiotic course, and PICC placement. Would only place PICC once blood cultures return clear of infection. Notably patient just received bilateral prosthetic knee joints in November 2019. Magdalena Alvarenga DO [facility] Hospitalist Admission and Anticipated Discharge Date Admission Date: April 20, 2020 Subjective feels somewhat better today clear drainage and odor from right foot afebrile overnight awaiting ortho evaluation doing well on broad spectrum abx overnight. Review of Systems Review of Systems: All systems reviewed & are unremarkable except as noted in Subjective Physical Exam Physical Exam: CONSTITUTIONAL: WNWD, vitals as above, generally well- appearing EYES: normal conjunctivae, no scleral icterus ENT: external ear and nose normal, oropharynx clear, MMM RESPIRATORY: clear to auscultation bilaterally, no crackles, rales or wheezes, normal respiratory effort CARDIOVASCULAR: regular rate and rhythm, S1 and 2 heard without murmurs, gall ops or rubs, no JVD, no peripheral edema GASTROINTESTINAL: soft, nondistended. MUSCULOSKELETAL: strength 5/5 throughout, head is normocephalic and atraumatic, neck supple, normal palpation of chest wall without tenderness SKIN: warm and dry, right first toe with ulceration medially and clear drainage. Excessive skin present around this with some surrounding erythema and inflammation. Erythema extends to the dorsum of the foot but not beyond. There is a foul odor present to this wound. NEUROLOGIC: CN 2-12 grossly intact, no sensory deficit, normal cognition, normal speech, no tremor. No gross focal deficits. PSYCHIATRIC: alert cooperative and oriented to person, place and time. Results & Data Results & Data ([facility]) Vital Signs (Past 12 Hours) Vital Signs Temp Pulse Resp BP Pulse Ox 04/21/20 07:24 37 C 55 L 20 120/70 96 04/21/20 00:51 36.9 C 57 L 18 118/66 93 04/20/20 22:58 60 18 155/82 H 94 Laboratory Results Short CBC 04/20/20 04/21/20 Range/Units 17:04 01:58 WBC 13.15 H 7.95 (4.8-10.8) K/uL Hgb 14.4 12.8 L (14.0-18.0) g/dL Hct 42.9 38.1 L (42-52) % Plt Count 326 266 (130-400) K/uL BMP 04/20/20 04/21/20 17:04 01:58 Sodium 138 140 Potassium 3.2 L 3.7 D Chloride 107 110 H Carbon Dioxide 23 27 BUN 16 18 Creatinine 1.07 0.85 Glucose 110 H 99 Calcium 9.2 8.1 L Liver Function 04/20/20 Range/Units 17:04 Total Bilirubin 1.0 (0.2-1) mg/dl AST 12 L (15-37) U/L ALT 15 (12-78) U/L Alkaline Phosphatase 115 (45-117) U/L Albumin 3.7 (3.4-5.0) gm/dl Medications Administered Current Inpatient Medications Acetaminophen (Acetaminophen 325 Mg Tab) 650 mg PO Q4H PRN PRN Reason: pain/fever Stop: 05/21/20 01:20 Diclofenac Sodium (Diclofenac Sodium 75 Mg Tabcr) 75 mg PO BID PRN PRN Reason: Pain Stop: 05/21/20 01:20 Diclofenac Sodium (Diclofenac Sod 1% Gel 100 Gm Tube) 1 gm EXT BID CATE Stop: 05/21/20 08:59 Last Admin: 04/21/20 10:08 Dose: 1 gm Documented by: Promethazine HCl 12.5 mg/ (Sodium Chloride) 50.5 mls @ 202 mls/hr IV Q6H PRN PRN Reason: Nausea And Vomiting Stop: 05/21/20 01:20 Potassium Chloride 40 meq/ (Sodium Chloride) 1,020 mls @ 50 mls/hr IV .[id number] CATE Stop: 05/21/20 01:20 Last Infusion: 04/21/20 03:27 Dose: 50 mls/hr Documented by: Daptomycin 475 mg/ Syringe 9.5 mls @ 4.75 mls/min IV Q24H CATE; Protocol Stop: 06/02/20 21:59 Cefepime HCl 2,000 mg/ Syringe 20 mls @ 5 mls/min IV Q8H CATE Stop: 06/02/20 03:59 Last Admin: 04/21/20 03:29 Dose: 5 mls/min Documented by: Ketorolac Tromethamine (Ketorolac Tromethamine 15 Mg/Ml Vial) 15 mg IV Q6H PRN PRN Reason: Pain Stop: 04/26/20 01:20 Miscellaneous Information (Daptomycin Consult Active) 1 ea N/A UD PRN PRN Reason: Consult Stop: 05/20/20 22:11 Miscellaneous Information (Cefepime Consult Active) 1 ea N/A UD PRN PRN Reason: Consult Stop: 05/21/20 01:49 Oxycodone HCl (Oxycodone Hcl Ir 5 Mg Tab (Immediate Release)) 5 - 10 mg PO QID PRN PRN Reason: Pain Stop: 05/05/20 01:20 (1) Chronic foot ulcer Laterality: right Non-pressure ulcer stage: with fat layer exposed Qualified Code(s): L97.512 - Non-pressure chronic ulcer of other part of right foot with fat layer exposed (2) Osteomyelitis Laterality: right Osteomyelitis location: foot Osteomyelitis type: unspecified type Qualified Code(s): M86.9 - Osteomyelitis, unspecified
[2020-04-21] MEDS: ENOXAPARIN INJ 40 MG/0.4 ML SYR SQ SCH (16:49)
--- NOTE | 2020-04-21 17:16 | Consultation Report ---
DATE OF CONSULTATION: 04/21/2020 HISTORY OF PRESENT ILLNESS: The patient presents, well known to me after having just recently undergoing bilateral total knee arthroplasties, who presents with an area measuring 1 x 1 cm over the plantar aspect of his great toe with ulceration. He has been treating for the last couple of months. There is some cellulitis to his great toe. The wound has not penetrate deep. X-ray as well as MRI scan has been reviewed. No evidence of abscess or acute osteomyelitis is noted. I do not see anything here that is in need of any type of surgical debridement at this time. We have discussed continued IV antibiotics and probable discharge on IV antibiotics and follow up with Dr. Coker as an outpatient. ASSESSMENT: Ulcer is in the right great toe plantar aspect, 1 x 1 cm. PLAN: Is for continued IV antibiotics and follow up as an outpatient with Dr. Coker.
[2020-04-21] MEDS ORDERED: DAPTOmycin 475 MG in SYRINGE 0 ML IV SCH (22:00)
[2020-04-22] MEDS: CEFEPIME 2,000 MG in SYRINGE 0 ML IV SCH ×2 (04:14→11:36)
[2020-04-22] MEDS ORDERED: ACETAMINOPHEN 325 MG TAB PO PRN (07:55)
[2020-04-22 08:18] LABS: Hematocrit (blood only) 43.5 % (42-52); Hemoglobin 14.3 g/dL (14.0-18.0); Mean Corpuscular Hemoglobin 27.4 pg (25-34); Mean Corpuscular Hgb Conc 32.9 g/dL (32-36); Mean Corpuscular Volume 83.3 fL (80-100); Mean Platelet Volume 10.1 fL (7.4-10.4); Platelet Count 345 K/uL (130-400); RDW Coefficient of Variation 14.3 % (11.5-14.5); Red Blood Count 5.22 M/uL (4.7-6.1); White Blood Count 6.36 K/uL (4.8-10.8)
[2020-04-22 08:49] LABS: BUN Creatinine Ratio 16.1 (10-20); Calcium 9.1 mg/dl (8.5-10.1); Creatinine Clr Calc Pharmacy 94.2 ml/min; Est GFR (African American) 92.6; Est GFR (Non-African American) 79.9; Potassium 3.8 mmol/L (3.5-5.1)
[2020-04-22] MEDS: DICLOFENAC SOD 1% GEL 100 GM TUBE EXT SCH ×2 (09:12→20:23)
--- NOTE | 2020-04-22 09:26 | Hospitalist Progress Note ---
Date of Service April 22, 2020 Assessment & Plan (1) Sepsis: Sepsis was initially suspected Possible Right Toe Osteomyelitis Right Toe ulcer, present on admission Cellulitis of Right Toe -As per 04/20/2020 ED note: "This patient is a 59-year-old male comes in with an ulcer on the right big toe for about a year it is on the medial aspect. He said it initially was from an injury and just has not healed. He took antibiotics initially and he has been seen by his regular doctor as well as by foot doctor. 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 He had bilateral knee replacements done in August by Dr. Claudio is worried that if this is get infected he could get those infected." -MRI in the ED: "There is marked marrow signal abnormality within the proximal and distal phalanges of the first toe. This is highly concerning for osteomyelitis." WBC on presentation 13,000 and lactic acid of 2.3 on presentation. Patient was given IV fluids and empirically started on Cefepime and Daptomycin. As per 04/20/2020 admission hospitalist note "Sepsis Secondary to osteomyelitis right great toe" -HbA1c 5.1, there is no evidence of diabetes -04/21/2020: as per hospitalist Dr. Alvarenga "Caught early and patient is now resuscitated and improved after broad spectrum abx were started. Leukocytosis has resolved. Foot MRI with osteopmyelitis of the first toe. Appreciate input from ortho and ID today. Will require a prolonged antibiotic course. Cont Dapto and Cefepime for now pending culture results and continued clinical improvement. Pain control as needed." -04/21/2020: as per orthopedics consultation "who presents with an area measuring 1 x 1 cm over the plantar aspect of his great toe with ulceration. He has been treating for the last couple of months. There is some cellulitis to his great toe. The wound has not penetrate deep. X-ray as well as MRI scan has been reviewed. No evidence of abscess or acute osteomyelitis is noted. I do not see anything here that is in need of any type of surgical debridement at this time. We have discussed continued IV antibiotics and probable discharge on IV antibiotics and follow up with Dr. Coker as an outpatient." -04/22/2020: right great toe swelling, right great toe ulceration of plantar side; no drainage from the ulceration which is in dressing. No fevers in the hospital to date. has remained hemodynamically stable. Patient denies symptoms of acute pain, or nausea, or vomiting, or dizziness, or headache or other symptoms. -at this time as of 04/22/2020 AM, blood and surface cultures of toe ulcer with no growth to date, awaiting [facility] ID recommendations as requested by previous hospitalist Dr. Alvarenga, patient also reports he is awaiting orthotics. Admission and Anticipated Discharge Date Admission Date: April 20, 2020 Subjective 04/22/2020: /right great toe swelling, right great toe ulceration of plantar side; no drainage from the ulceration which is in dressing. No fevers in the hos pital to date. has remained hemodynamically stable. Patient denies symptoms of acute pain, or nausea, or vomiting, or dizziness, or headache or other symptoms. Review of Systems Review of Systems: All systems reviewed & are unremarkable except as noted in Subjective Physical Exam Constitutional: comfortable Eyes: PERRL, conjunctivae normal, anicteric sclerae EOM intact bilaterally Neck: normal visual inspection Respiratory: normal respiratory effort, lungs clear to auscultation Cardiovascular: Rate/Rhythm: + bradycardic Gastrointestinal (Abdomen): normal bowel sounds, soft, nontender, no hepatosplenomegaly Musculoskeletal: Head/Neck/Chest: normocephalic and head atraumatic Extremities: + foot abnormality (right great toe swelling, right great toe ulceration of plantar side ) Neurologic: PERRL, EOMI, accommodation nl, no face palsy, no dysarthria CN's II-XI intact bilaterally and moves all extremities Psychiatric: A+Ox3, euthymic affect Results & Data Results & Data ([facility]) Vital Signs (Past 12 Hours) Vital Signs Temp Pulse Resp BP Pulse Ox 04/22/20 07:46 36.8 C 55 L 19 127/74 93 04/21/20 23:21 36.4 C L 57 L 18 144/80 H 97
[2020-04-22] MEDS ORDERED: LINEZOLID CONSULT ACTIVE PRN (17:17)
[2020-04-22] MEDS: ENOXAPARIN INJ 40 MG/0.4 ML SYR SQ SCH (17:55)
[2020-04-22] MEDS: LINEZOLID 600 MG TAB PO SCH (20:21)
[2020-04-23] MEDS ORDERED: LINEZOLID 600 MG TAB PO SCH
[2020-04-23] MEDS: LINEZOLID 600 MG TAB PO SCH (08:08)
[2020-04-23] MEDS: DICLOFENAC SOD 1% GEL 100 GM TUBE EXT SCH (08:08)
--- NOTE | 2020-04-23 08:26 | Hospitalist Progress Note ---
Date of Service April 23, 2020 Assessment & Plan (1) Sepsis: Sepsis was initially suspected Possible Right Toe Osteomyelitis Right Toe ulcer, present on admission Cellulitis of Right Toe -As per 04/20/2020 ED note: "This patient is a 59-year-old male comes in with an ulcer on the right big toe for about a year it is on the medial aspect. He said it initially was from an injury and just has not healed. He took antibiotics initially and he has been seen by his regular doctor as well as by foot doctor. 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 He had bilateral knee replacements done in August by Dr. Claudio is worried that if this is get infected he could get those infected." -MRI in the ED: "There is marked marrow signal abnormality within the proximal and distal phalanges of the first toe. This is highly concerning for osteomyelitis." WBC on presentation 13,000 and lactic acid of 2.3 on presentation. Patient was given IV fluids and empirically started on Cefepime and Daptomycin. As per 04/20/2020 admission hospitalist note "Sepsis Secondary to osteomyelitis right great toe" -HbA1c 5.1, there is no evidence of diabetes -04/21/2020: as per hospitalist Dr. Alvarenga "Caught early and patient is now resuscitated and improved after broad spectrum abx were started. Leukocytosis has resolved. Foot MRI with osteopmyelitis of the first toe. Appreciate input from ortho and ID today. Will require a prolonged antibiotic course. Cont Dapto and Cefepime for now pending culture results and continued clinical improvement. Pain control as needed." -04/21/2020: as per orthopedics consultation "who presents with an area measuring 1 x 1 cm over the plantar aspect of his great toe with ulceration. He has been treating for the last couple of months. There is some cellulitis to his great toe. The wound has not penetrate deep. X-ray as well as MRI scan has been reviewed. No evidence of abscess or acute osteomyelitis is noted. I do not see anything here that is in need of any type of surgical debridement at this time. We have discussed continued IV antibiotics and probable discharge on IV antibiotics and follow up with Dr. Coker as an outpatient." -04/22/2020: right great toe swelling, right great toe ulceration of plantar side; no drainage from the ulceration which is in dressing. No fevers in the hospital to date. has remained hemodynamically stable. Patient denies symptoms of acute pain, or nausea, or vomiting, or dizziness, or headache or other symptoms. -as per [facility] 04/22/2020 Dr. Butler ?R foot cellulitis w/ chronic ulcer on R 1st toe and suspected OM of prox and distal phalanges of 1st toe - MRI shows finding suspicious of OM on R 1st toe. Long-term iv abx therapy will not eradicate OM from toe w/o amputation. I recommend against a long-term abx therapy if patient is not getting amputation. - Stop cefepime - Stop daptomycin - Start linezolid 600 mg po bid (if not available, use doxycycline 100 mg po bid and amoxicillin 875 mg po bid) to treat cellulitis only - Anticipate total 10-14 of abx therapy, depending on clinical response If cellulitis recurs after completion of abx therapy or the cellulitis does not improve on abx therapy, I suggest amputation for definitive therapy for OM. A long-term abx therapy w/o surgical intervention is not recommended for OM." -04/22/2020: blood cultures no growth to date and minimal bacteria from surface wound culture of toe Gram Stain Final 04/21/20-0803 Gram Stain Result Rare WBCs Seen Rare Gram Positive Cocci Surface Wound Culture Preliminary 04/22/20-1031 Organism 1 Staphylococcus species Quantity Rare Sens Sensitivities to Follow Organism 2 Staphylococcus species#2 Quantity Few Sens Sensitivities to Follow Organism 3 Group B Beta Strep Quantity Few Sens Sensitivities to Follow -04/23/2020: As of this time, patient insists on being discharged to home. Anders rogers was started on Linezolid start on 04/22/2020 evening and he will get 2 pills of Linezolid to go home with while awaiting for hospital caser in to see if any insurance approval is needed to be obtained for 14 day course. Patient was instructed that the oral substitute of Doxycycline 100 mg twice a day and Amoxicillin 875 mg twice a day for that 14 day course is allowed by Infectious Disease Dr. Butler may also be used while patient to follow with orthopedics clinic in 2 weeks. discharge pharmacy [facility] at [address] [place] [address] PA of Linezolid 600 mg twice a day for 14 day course (alternatively if any difficulties with obtaining Linezolid from outpatient pharmacy, patient may take Doxycycline 100 mg twice a day and Amoxicillin 875 mg twice a day for that 14 day course) follow up appointments Patient to follow up with [facility] in 2 weeks Patient has family doctor appointment with 04/27/2020 11:20 AM Provider DO [facility] Admission and Anticipated Discharge Date Admission Date: April 20, 2020 Subjective As of this time, patient insists on being discharged to home. Patient was started on Linezolid start on 04/22/2020 evening and he will get 2 pills of Li nezolid to go home with while awaiting for hospital caser in to see if any insurance approval is needed to be obtained for 14 day course. Patient was instructed that the oral substitute of Doxycycline 100 mg twice a day and Amoxicillin 875 mg twice a day for that 14 day course is allowed by Infectious Disease Dr. Butler may also be used while patient to follow with orthopedics clinic in 2 weeks. Patient otherwise denies other symptoms. no fever. no chills. no dizziness. no headache. no chest pain. breathing on room air. no shortness of breath. no nausea. no vomiting. is ambulatory Review of Systems Review of Systems: All systems reviewed & are unremarkable except as noted in Subjective Physical Exam Constitutional: comfortable Eyes: PERRL, conjunctivae normal, anicteric sclerae EOM intact bilaterally Neck: normal visual inspection Respiratory: normal respiratory effort, lungs clear to auscultation Cardiovascular: Rate/Rhythm: + bradycardic Gastrointestinal (Abdomen): normal bowel sounds, soft, nontender, no hepatosplenomegaly Musculoskeletal: Head/Neck/Chest: normocephalic and head atraumatic Extremities: + foot abnormality (right great toe swelling, right great toe ulceration of plantar side ) Neurologic: PERRL, EOMI, accommodation nl, no face palsy, no dysarthria CN's II-XI intact bilaterally and moves all extremities Psychiatric: A+Ox3, euthymic affect Results & Data Results & Data ([facility]) Vital Signs (Past 12 Hours) Vital Signs Temp Pulse Resp BP Pulse Ox 04/23/20 08:14 37.0 C 54 L 20 124/76 96 04/22/20 23:45 36.7 C 63 18 125/78 95
--- NOTE | 2020-04-23 08:33 | Discharge Summary ---
Date of Service April 23, 2020 Admission HPI Per Admitting Provider History obtained from patient and records. Medical history significant for osteoarthritis, chronic right great toe wound. Last confinement November 2019 under Orthopedics service for bilateral total knee replacements. Patient has had an ulcerated wound on the right great toe for about a year now. Wound noted after pressure on his foot at work about a year ago. Has seen a wood machine carver in the office a few months ago. A few courses of antibiotics. In the last week, patient noted increased redness and pain around chronic wound on right big toe with some clear drainage. No fever, no chills. No chest pain, no S OB. At the ER, patient received Unasyn. Medical History as above Surgical History : Knee surgeries Family History : stroke Personal/Social history : Non-smoker, no EtOH intake, [employer] employee Principal Diagnosis Sepsis was initially suspected Possible Right Toe Osteomyelitis Right Toe ulcer, present on admission Cellulitis of Right Toe Discharge Exam Constitutional comfortable Eyes PERRL, conjunctivae normal, anicteric sclerae EOM intact bilaterally Neck normal visual inspection Respiratory normal respiratory effort, lungs clear to auscultation Cardiovascular Rate/Rhythm: + bradycardic Gastrointestinal (Abdomen) normal bowel sounds, soft, nontender, no hepatosplenomegaly Musculoskeletal Head/Neck/Chest: normocephalic and head atraumatic Extremities: + foot abnormality (right great toe swelling, right great toe ulceration of plantar side ) Neurologic PERRL, EOMI, accommodation nl, no face palsy, no dysarthria CN's II-XI intact bilaterally and moves all extremities Psychiatric A+Ox3, euthymic affect Discharge Data Allergies Allergy/AdvReac Type Severity Reaction Status Date / Time No Known Allergies Allergy Verified 04/20/20 22:00 Consultations 04/20/20 20:58 ED Decision to Admit Stat 04/21/20 01:21 Consult Orthopedic Surgery Routine 04/21/20 10:15 Consult Infectious Diseases Routine Ordered Studies 04/20/20 18:28 MR foot RT w/o con Stat Hospital Course (1) Sepsis: Sepsis was initially suspected Possible Right Toe Osteomyelitis Right Toe ulcer, present on admission Cellulitis of Right Toe -As per 04/20/2020 ED note: "This patient is a 59-year-old male comes in with an ulcer on the right big toe for about a year it is on the medial aspect. He said it initially was from an injury and just has not healed. He took antibiotics initially and he has been seen by his regular doctor as well as by foot doctor. 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 He had bilateral knee replacements done in August by Dr. Claudio is worried that if this is get infected he could get those infected." -MRI in the ED: "There is marked marrow signal abnormality within the proximal and distal phalanges of the first toe. This is highly concerning for osteomyelitis." WBC on presentation 13,000 and lactic acid of 2.3 on presentation. Patient was given IV fluids and empirically started on Cefepime and Daptomycin. As per 04/20/2020 admission hospitalist note "Sepsis Secondary to osteomyelitis right great toe" -HbA1c 5.1, there is no evidence of diabetes -04/21/2020: as per hospitalist Dr. Alvarenga "Caught early and patient is now resuscitated and improved after broad spectrum abx were started. Leukocytosis has resolved. Foot MRI with osteopmyelitis of the first toe. Appreciate input from ortho and ID today. Will require a prolonged antibiotic course. Cont Dapto and Cefepime for now pending culture results and continued clinical impro vement. Pain control as needed." -04/21/2020: as per orthopedics consultation "who presents with an area measuring 1 x 1 cm over the plantar aspect of his great toe with ulceration. He has been treating for the last couple of months. There is some cellulitis to his great toe. The wound has not penetrate deep. X-ray as well as MRI scan has been reviewed. No evidence of abscess or acute osteomyelitis is noted. I do not see anything here that is in need of any type of surgical debridement at this time. We have discussed continued IV antibiotics and probable discharge on IV antibiotics and follow up with Dr. Coker as an outpatient." -04/22/2020: right great toe swelling, right great toe ulceration of plantar side; no drainage from the ulceration which is in dressing. No fevers in the hospital to date. has remained hemodynamically stable. Patient denies symptoms of acute pain, or nausea, or vomiting, or dizziness, or headache or other symptoms. -as per [facility] of [facility] 04/22/2020 Dr. Butler ?R foot cellulitis w/ chronic ulcer on R 1st toe and suspected OM of prox and distal phalanges of 1st toe - MRI shows finding suspicious of OM on R 1st toe. Long-term iv abx therapy will not eradicate OM from toe w/o amputation. I recommend against a long-term abx therapy if patient is not getting amputation. - Stop cefepime - Stop daptomycin - Start linezolid 600 mg po bid (if not available, use doxycycline 100 mg po bid and amoxicillin 875 mg po bid) to treat cellulitis only - Anticipate total 10-14 of abx therapy, depending on clinical response If cellulitis recurs after completion of abx therapy or the cellulitis does not improve on abx therapy, I suggest amputation for definitive therapy for OM. A long-term abx therapy w/o surgical intervention is not recommended for OM." -04/22/2020: blood cultures no growth to date and minimal bacteria from surface wound culture of toe Gram Stain Final 04/21/20-802 Gram Stain Result Rare WBCs Seen Rare Gram Positive Cocci Surface Wound Culture Preliminary 04/22/20-1031 Organism 1 Staphylococcus species Quantity Rare Sens Sensitivities to Follow Organism 2 Staphylococcus species#2 Quantity Few Sens Sensitivities to Follow Organism 3 Group B Beta Strep Quantity Few Sens Sensitivities to Follow -04/23/2020: As of this time, patient insists on being discharged to home. Patient was started on Linezolid start on 04/22/2020 evening and he will get 2 pills of Linezolid to go home with while awaiting for hospital block and case maker to see if any insurance approval is needed to be obtained for 14 day course. Patient was instructed that the oral substitute of Doxycycline 100 mg twice a day and Amoxicillin 875 mg twice a day for that 14 day course is allowed by Infectious Disease Dr. Butler may also be used while patient to follow with orthopedics clinic in 2 weeks. discharge pharmacy [facility] at [address] [place] [address] [place] of Linezolid 600 mg twice a day for 14 day course (alternatively if any difficulties with obtaining Linezolid from outpatient pharmacy, patient may take Doxycycline 100 mg twice a day and Amoxicillin 875 mg twice a day for that 14 day course) follow up appointments Patient to follow up with [facility] in 2 weeks Patient has family doctor appointment with 04/27/2020 11:20 AM Provider James Valle DO Department [facility] Total Time Total Time Spent Total Time Spent (In Minutes): 40 minutes Total Time Includes: Examination of the Patient, Discharge Planning, Medication Reconciliation and Communication With Other Providers Discharge Plan Discharge Items Patient Disposition: Home - Self-Care Reason For Visit: OSTEOMYELITIS, RT TOE Discharge Diagnosis: Sepsis was initially suspected Possible Right Toe Osteomyelitis Right Toe ulcer, present on admission Cellulitis of Right Toe Condition on Discharge: Good Activity: Per Instructions section Non-emergency contact: Primary Care Provider Call non-emergency contact if: you have any medication questions Follow-up/Referrals: Wyatt Coker DO [Surgeon] - (7-10 days) James Valle DO [Primary Care Provider] - Diet: Regular Addtl Attending Provider Instructions: discharge pharmacy [facility] at [address] [place] [address] [place] of Linezolid 600 mg twice a day for 14 day course (alternatively if any difficulties with obtaining Linezolid from outpatient pharmacy, patient may take Doxycycline 100 mg twice a day and Amoxicillin 875 mg twice a day for that 14 day course) follow up appointments Patient to follow up with [facility] in 2 weeks Patient has family doctor appointment with 04/27/2020 11:20 AM Provider James Valle DO Department [facility] Addtl Aoc Director Combat Operations Officer Provider Instructions: as per Infectious Disease of [facility] Dr. Butler on 04/22/2020: "R foot cellulitis w/ chronic ulcer on R 1st toe and suspected OM of prox and distal phalanges of 1st toe - MRI shows finding suspicious of OM on R 1st toe. Long-term iv abx therapy will not eradicate OM from toe w/o amputation. I recommend against a long-term abx therapy if patient is not getting amputation. - Stop cefepime - Stop daptomycin - Start linezolid 600 mg po bid (if not available, use doxycycline 100 mg po bid and amoxicillin 875 mg po bid) to treat cellulitis only - Anticipate total 10-14 of abx therapy, depending on clinical response If cellulitis recurs after completion of abx therapy or the cellulitis does not improve on abx therapy, I suggest amputation for definitive therapy for OM. A long-term abx therapy w/o surgical intervention is not recommended for OM." Pending Studies at Discharge: No Stand-Alone Forms: My [facility], Smoking Cessation Medications and DC Order Prescriptions: New linezolid 600 mg Tablet 600 mg PO BID 14 Days Qty: 28 RF: 0 doxycycline hyclate 100 mg tablet 100 mg PO BID 14 Days Qty: 28 RF: 0 amoxicillin 875 mg tablet 875 mg PO BID 14 Days Qty: 28 RF: 0 Continued diclofenac sodium 75 mg tablet,delayed release (DR/EC) 75 mg PO BID PRN (Reason: Pain) RF: 0 diclofenac sodium 1 % gel 1 g TOPICAL BID RF: 0 Discharge Orders: Discharge Order (Routine); Ordered 04/23/20 Ordered By: Babak Peters Admission Data Admit Date/Time: 04/20/20 22:07 Attending Provider: Babak Peters Admit Provider: Haider Gonzalez Primary Care Provider: James Valle Other Providers: Haider Gonzalez ; Gautam Ruiz ; Wyatt Coker ; Hussein Tom ; Radha Trinh Thomas J ; Michelle Atwood ; Dontae Lambert ; Jordan Miramontes ; Chris Monk ; Jordan Gorman ; Dk Gutierrez ; Chris Sotelo ; Huan Morton ; Tristin Mane ; Sly Sanchez ; Conner Shepherd ; Chet Waddell ; Michelle Turner Casey R ; Vineet Kelly ; Eliana Koroma ; Guille Velez ; Roslyn Acosta ; Reed Alcantara ; Yasmany Butler ; Angelo Gan I. ; Pranav Jones II ; Dilia Parker ; Jordan Fernandez.
[2020-04-23 08:57] LABS: Basophils # (auto) 0.06 K/uL (0-0.2); Eosinophils # (auto) 0.39 K/uL (0-0.5); Eosinophils % (auto) 6.3 %; Hematocrit (blood only) 45.2 % (42-52); Hemoglobin 14.6 g/dL (14.0-18.0); Immature Granulocytes # (auto) 0.01 K/uL (0.00-0.02); Immature Granulocytes % (auto) 0.2 %; Lymphocytes # (auto) 1.35 K/uL (1.2-3.4); Mean Corpuscular Hgb Conc 32.3 g/dL (32-36); Mean Corpuscular Volume 83.5 fL (80-100); Monocytes # (auto) 0.82 K/uL (0.11-0.59); Monocytes % (auto) 13.3 %; Neutrophils # (auto) 3.52 K/uL (1.4-6.5); Neutrophils % (auto) 57.2 %; Platelet Count 389 K/uL (130-400); RDW Coefficient of Variation 14.4 % (11.5-14.5); RDW Standard Deviation 44.1 fL (36.4-46.3); Red Blood Count 5.41 M/uL (4.7-6.1); White Blood Count 6.15 K/uL (4.8-10.8)
[2020-04-23 09:22] LABS: Albumin Level 3.4 gm/dl (3.4-5.0); Calcium 9.1 mg/dl (8.5-10.1); Creatinine Clr Calc Pharmacy 89.8 ml/min; Est GFR (African American) 87.4; Est GFR (Non-African American) 75.4; Potassium 3.8 mmol/L (3.5-5.1)
[2020-04-23 09:25] LABS: Albumin Globulin Ratio 0.7 (0.9-2); Bilirubin,Total 0.5 mg/dl (0.2-1); Globulin 4.7 gm/dl (2.5-4.0); Total Protein 8.1 gm/dl (6.4-8.2)
--- NOTE | 2020-05-10 10:49 | Coding Query ---
To promote full compliance with coding requirements relating to patient care, provider participation is requested in all cases of certified professional coder uncertainty. Please assist us with the question(s) below: Coding Question(s): The diagnosis(es) below was documented in the DISCHARGE SUMMARY. Please indicate if it is still a possible diagnosis or ruled out. Sepsis was initially suspected Possible Right Toe Osteomyelitis Physician's Response(s): SEPSIS ( ) Diagnosed and POA ( ) Diagnosed and not POA ( X ) Ruled out ( ) Other (please specify) ASPIRATION PNEUMONIA ( ) Diagnosed and POA ( ) Diagnosed and not POA ( X ) Ruled out ( ) Other (please specify) Sepsis was initially suspected Possible Right Toe Osteomyelitis Right Toe ulcer, present on admission Cellulitis of Right Toe Thank you for your time, Colleen Varela, KAYLEE, [facility]
== END 2020-04-23 10:11 | disposition home or self-care (01) | DRG 603 ==
LOC: ED 16:27 → 3N 22:07 → SUATTDRO 22:07 → 3N 23:52

== ENCOUNTER 2021-08-22 13:18 | Inpatient (IN) ==
--- NOTE | 2021-08-22 13:37 | Emergency Department Note ---
Impression & Plan Intertrochanteric fracture of right femur ED Provider Note Name: KAREN MCMAHAN Age: 61 Sex: M Arrives Via: Ambulance Informant: Patient ED Provider: Dangelo Jones MD Chief Complaint: right hip pain Impression: As per impressions above Medical Decision Making: Pleasant 61-year-old male with no past medical history on no medications who has had bilateral knee repairs in the past arrives for evaluation of right hip pain following a fall while skiing. He had no head or neck injury and has no headache nor neurologic deficits requiring a CT of the head/neck at this time. X-rays of the right hip reveal a nondisplaced intertrochanteric right hip fra cture. IV is established and labs obtained along with EKG and chest x-ray for preoperative testing. He did have a Covid swab which is negative. Patient on several times declining pain medications. He has good distal pulses and sensation in his feet. I discussed the case with his orthopedic team who agreed to hospitalization and request inpatient hospitalist team evaluate the patient. Hospitalist team consulted who will admit him. Patient is comfortable with this plan and was reevaluated throughout. Prior Medical Record and Triage/Nursing Notes reviewed by Me Additional history obtained from chart Differentials:Fracture, subluxation, dislocation, contusion, ligamentous injury, neurovascular, compartment syndrome, rhabdomyolysis, as well as other pathologies. Vital Signs: reviewed and remarkable for no significant abnormalities Labs:Reviewed and remarkable for no significant abnormalities Imaging:Right hip x-rays read by radiology repeat for a nondisplaced intrat rochanteric fracture. 1 view chest x-ray unremarkable per radiologist read EKG:Per My Interpretation: Indication Pre-Op: Sinus Lars 54 bpm, qtc 407. No Ectopy. No Ischemia. Compared to EKG 08/22/21, no significant changes. Consults:Dr Rangel [facility], Dr Gracy Arreaga hospitalist Plan: Disposition:Hospitalization. Condition: Good History of Present Illness:61-year-old gentleman arrives for evaluation of right hip pain. Patient was skiing this afternoon when he notes he fell on his right side landing on his hip. He notes he hit quite hard but did not notice an y snap or cracking sounds. He notes right hip pain currently. Denies any head injury or neck injury and denies any current headache or neck pain. He had no loss of consciousness. He does note he was not wearing a helmet. He has no other aches or pains. He denies any back pain. He is able to move his toes and ankle but has severe pain with any range of motion of the hip. He denies previous injury to this hip. He has had both knees operated on previously. He had no medications prior to arrival. He declines any current medications. Any movement makes the pain worse but rest makes it better. Patient has no history of bleeding disorder and takes no anticoagulants. Patient denies any headache, neck pain, chest pain, shortness of breath, abdominal pain, back pain, other signs and symptoms. ROS: See above HPI for pertinent positives & negatives. A total of 10 systems reviewed and were otherwise negative. Past Medical History:Osteoarthritis Past Surgical History:None Family History:See Below Social History:See Below Home Medications:None Allergies:None Vitals:Blood Pressure: 111/60, Pulse 56, RR 17, T 3.3C, O2 98% on RA Physical Exam: GENERAL: Patient is uncomfortable appearing and in mild distress. EYES: No scleral icterus, unremarkable pupils. NECK: No masses appreciated, nomeningismus, trachea is midline. RESPIRATORY: No dyspnea. Clear to auscultation and equal bilaterally. No wheeze, no rhonchi. CARDIOVASCULAR: Regular rate and rhythm.No murmurs, rubs, gallops appreciated. GASTROINTESTINAL: Abdomen soft, non-tender, no peritonitis.Bowel sounds positive.No masses appreciated. BACK: No midline tenderness, no CVA tenderness EXTREMITIES: Pain with palpation over the right greater trochanter as well as significant pain with any range of motion of the right hip. He has no pain with range of motion of feet or knee. He has good distal sensation and pulses. Other extremities normal without any acute abnormality. NEUROLOGIC: Alert and oriented, no acute motor or sensory deficits, no focal weakness, cranial nerves grossly intact. SKIN: No rash, no jaundice, no diaphoresis. GCS: 15 ED Course: Times/Reassessments: Stable evaluations here patient stay and is declining pain medications. He is comfortable when sitting in a slightly reclined position. Patient aware of findings and agreeable to hospitalization. Dangelo Jones MD Past Med/Surg History Medical History (Updated 08/22/21 @ 16:08 by Dangelo Jones MD) Osteoarthritis Surgical History H/O hernia repair L inguinal hernia History of adenoidectomy History of bilateral knee arthroplasty History of tonsillectomy History of tooth extraction Family History (Updated 08/22/21 @ 15:10 by Allison Carty PA-C) Grandmother (Paternal) Diabetes Other No family history of adverse response to anesthesia Denies family history of Coronary heart disease Heart disease Myocardial infarction Stroke Social History Smoking Status: Never smoker Tobacco Type: Smokeless Tobacco (Dip or Chew) Second Hand Exposure: No; Hx Alcohol Use: Yes Alcohol type: beer Hx Substance Use: No Preferred Language: Dutch Communication Ability: Effective Technical Services Specialist Required: No Beliefs That Will Affect Care: None marital status: Current Living Situation: Family Current Living Situation Comment: dtr lives with pt Feels Safe at Home: Yes Assistive Devices: Glasses Allergies Allergies Allergy/AdvReac Type Severity Reaction Status Date / Time No Known Allergies Allergy Verified 08/22/21 15:17 Home Meds Home Medications Medication Instructions Recorded Confirmed No Known Home Medications 08/22/21 08/22/21 Results & Data (ED) Vital Signs Vital Signs - 24 hr 08/22/21 13:11 08/22/21 15:37 Temperature 36.3 C L Temperature Source Oral Pulse Rate 74 56 L Pulse Rate [Apical] 74 Pulse Rate from SpO2 Sensor 51 L Respiratory Rate 16 17 Blood Pressure 94/61 L 111/60 Blood Pressure [Left Arm] 94/61 L Blood Pressure Mean 72 77 Blood Pressure Mean [Left Arm] 72 Pulse Oximetry 97 91 Oxygen Delivery Method Room Air Sepsis Recent Fever Within 48 Hours No Sepsis New/Unexplained Change in Mental Status No Sepsis Action Taken by Nursing No Action Required Laboratory Data Result diagrams: 08/22/21 15:01 08/22/21 15:01 Lab Results 08/22/21 08/22/21 08/22/21 Range/Units 15:01 15:01 15:01 WBC 17.37 H (4.8-10.8) K/uL RBC 5.07 (4.7-6.1) M/uL Hgb 15.3 (14.0-18.0) g/dL Hct 43.3 (42-52) % MCV 85.4 (80-100) fL MCH 30.2 (25-34) pg MCHC 35.3 (32-36) g/dL RDW Std Deviation 40.3 (36.4-46.3) fL RDW Coeff of David 12.9 (11.5-14.5) % Plt Count 280 (130-400) K/uL MPV 9.7 (7.4-10.4) fL Immature Gran % (Auto) 0.2 % Neut % (Auto) 87.8 % Lymph % (Auto) 5.5 % [place] % (Auto) 5.7 % Eos % (Auto) 0.6 % Baso % (Auto) 0.2 % Neut # (Auto) 15.23 H (1.4-6.5) K/uL Lymph # (Auto) 0.96 L (1.2-3.4) K/uL [place] # (Auto) 0.99 H (0.11-0.59) K/uL Eos # (Auto) 0.11 (0-0.5) K/uL Baso # (Auto) 0.04 (0-0.2) K/uL Immature Gran # (Auto) 0.04 H (0.00-0.02) K/uL PT 12.1 H (9.0-12.0) Seconds INR 1.1 (0.9-1.1) APTT 20.3 L (21.0-31.0) Seconds PTT Ratio 0.7 Sodium 138 (136-145) mmol/L Potassium 3.7 (3.5-5.1) mmol/L Chloride 104 (98-107) mmol/L Carbon Dioxide 27 (21-32) mmol/L Anion Gap 7 (3-11) BUN 15 (6-23) mg/dl Creatinine 0.99 (0.6-1.4) mg/dl Est Cr Clr Drug Dosing 90.9 ml/min Est GFR ( Amer) 93.6 ml/min Est GFR (Non-Af Amer) 80.7 ml/min BUN/Creatinine Ratio 15.2 (10-20) Glucose 89 (70-99(Fasting)) mg/dl Calcium 9.6 (8.5-10.1) mg/dl SARS-CoV-2, RNA, NAAT (NEGATIVE) 08/22/21 Range/Units 15:01 WBC (4.8-10.8) K/uL RBC (4.7-6.1) M/uL Hgb (14.0-18.0) g/dL Hct (42-52) % MCV (80-100) fL MCH (25-34) pg MCHC (32-36) g/dL RDW Std Deviation (36.4-46.3) fL RDW Coeff of David (11.5-14.5) % Plt Count (130-400) K/uL MPV (7.4-10.4) fL Immature Gran % (Auto) % Neut % (Auto) % Lymph % (Auto) % [place] % (Auto) % Eos % (Auto) % Baso % (Auto) % Neut # (Auto) (1.4-6.5) K/uL Lymph # (Auto) (1.2-3.4) K/uL [place] # (Auto) (0.11-0.59) K/uL Eos # (Auto) (0-0.5) K/uL Baso # (Auto) (0-0.2) K/uL Immature Gran # (Auto) (0.00-0.02) K/uL PT (9.0-12.0) Seconds INR (0.9-1.1) APTT (21.0-31.0) Seconds PTT Ratio Sodium (136-145) mmol/L Potassium (3.5-5.1) mmol/L Chloride (98-107) mmol/L Carbon Dioxide (21-32) mmol/L Anion Gap (3-11) BUN (6-23) mg/dl Creatinine (0.6-1.4) mg/dl Est Cr Clr Drug Dosing ml/min Est GFR ( Amer) ml/min Est GFR (Non-Af Amer) ml/min BUN/Creatinine Ratio (10-20) Glucose (70-99(Fasting)) mg/dl Calcium (8.5-10.1) mg/dl SARS-CoV-2, RNA, NAAT NEGATIVE (NEGATIVE) Administered Medications Discontinued Medications Sodium Chloride (Nss 1000ml) 500 mls @ 999 mls/hr IV .Q31M ONE Stop: 08/22/21 15:41 Last Admin: 08/22/21 15:41 Dose: 999 mls/hr Documented by: [id number] Morphine Sulfate (Morphine Sulfate 4 Mg/Ml 1 Ml Carp\Vial) 4 mg IV NOW STA Stop: 08/22/21 15:04 Last Admin: 08/22/21 16:01 Dose: Not Given Documented by: [id number] Morphine Sulfate (Morphine Sulfate 4 Mg/Ml 1 Ml Carp\Vial) Confirm Administered Dose 4 mg .ROUTE .STK-MED ONE Stop: 08/22/21 15:18 Last Admin: 08/22/21 15:19 Dose: 4 mg Documented by: [id number] Imaging Data Radiologist's Impression: Hip/Pelvis X-Ray 08/22/21 13:33 XR hip RT 2V w pelvis HISTORY: 61 years-old Male right hip pain s/p fall skiing acute right hip pain status post fall COMPARISON: None TECHNIQUE: AP view of the pelvis with frog-leg view of the right hip FINDINGS: Moderate right hip osteoarthritis. Linear lucencies with cortical irregularity noted in the intertrochanteric distribution of the right femur. Minimal impaction without significant displacement. Fracture extends into the lesser trochanter. IMPRESSION: Acute mildly impacted nondisplaced intratrochanteric fracture of the right femur. ACT 112: Negative or not required by law. The above report was generated using voice recognition software. It may contain grammatical, syntax or spelling errors. Electronically signed by: Memo Perez M.D. 08/22/2021 2:18 PM Chest X-Ray 08/22/21 14:29 XR chest 1V portable HISTORY: 61 years-old Male pre-op fall with hip fracture acute chest trauma COMPARISON: Chest radiograph 08/12/2019 TECHNIQUE: Portable AP view the chest FINDINGS: Cardiac silhouette is enlarged. No pneumothorax, pleural effusion, airspace consolidation or overt pulmonary edema. Minimal bibasilar atelectasis/scarring. Degenerative changes of the shoulders and spine. IMPRESSION: No acute process. ACT 112: Negative or not required by law. The above report was generated using voice recognition software. It may contain grammatical, syntax or spelling errors. Electronically signed by: Memo Perez M.D. 08/22/2021 2:44 PM Discharge Plan Visit Data Chief Complaint: Hip Pain ED Provider: Dangelo Jones Discharge Problem: Intertrochanteric fracture of right femur Patient Disposition: Home - Self-Care Discharge Instructions Interventions: ED Discharge Assessment Last Done: 08/22/21 16:06 Forms Stand Alone Forms: My [facility], [facility] Emergency Department, I mportant Visit Information Prescriptions Prescriptions: No Action No Known Home Medications RF: 0 Referrals Referrals: James Valle DO [Primary Care Provider] -
--- NOTE | 2021-08-22 14:19 | XRay Report ---
XR hip RT 2V w pelvis HISTORY: 61 years-old Male right hip pain s/p fall skiing acute right hip pain status post fall COMPARISON: None TECHNIQUE: AP view of the pelvis with frog-leg view of the right hip FINDINGS: Moderate right hip osteoarthritis. Linear lucencies with cortical irregularity noted in the intertroc hanteric distribution of the right femur. Minimal impaction without significant displacement. Fractur e extends into the lesser trochanter. IMPRESSION: Acute mildly impacted nondisplaced intratrochanteric fracture of the right femur. ACT 112: Negative or not required by law. The above report was generated using voice recognition software. It may contain grammatical, syntax o r spelling errors. Electronically signed by: Memo Perez M.D. 08/22/2021 2:18 PM
--- NOTE | 2021-08-22 14:45 | XRay Report ---
XR chest 1V portable HISTORY: 61 years-old Male pre-op fall with hip fracture acute chest trauma COMPARISON: Chest radiograph 08/12/2019 TECHNIQUE: Portable AP view the chest FINDINGS: Cardiac silhouette is enlarged. No pneumothorax, pleural effusion, airspace consolidation or overt pu lmonary edema. Minimal bibasilar atelectasis/scarring. Degenerative changes of the shoulders and spin e. IMPRESSION: No acute process. ACT 112: Negative or not required by law. The above report was generated using voice recognition software. It may contain grammatical, syntax o r spelling errors. Electronically signed by: Memo Perez M.D. 08/22/2021 2:44 PM
[2021-08-22] MEDS ORDERED: MoRPHine SULFATE 4 MG/ML 1 ML CARP\\VIAL IV STA (15:03)
[2021-08-22] MEDS ORDERED: SODIUM CHLORIDE 0.9% 1000ML 500 ML IV ONE (15:11)
[2021-08-22 15:15] LABS: Basophils # (auto) 0.04 K/uL (0-0.2); Basophils % (auto) 0.2 %; Eosinophils # (auto) 0.11 K/uL (0-0.5); Eosinophils % (auto) 0.6 %; Hematocrit (blood only) 43.3 % (42-52); Hemoglobin 15.3 g/dL (14.0-18.0); Immature Granulocytes # (auto) 0.04 K/uL (0.00-0.02); Immature Granulocytes % (auto) 0.2 %; Lymphocytes # (auto) 0.96 K/uL (1.2-3.4); Lymphocytes % (auto) 5.5 %; Mean Corpuscular Hemoglobin 30.2 pg (25-34); Mean Corpuscular Hgb Conc 35.3 g/dL (32-36); Mean Corpuscular Volume 85.4 fL (80-100); Mean Platelet Volume 9.7 fL (7.4-10.4); Monocytes # (auto) 0.99 K/uL (0.11-0.59); Monocytes % (auto) 5.7 %; Neutrophils # (auto) 15.23 K/uL (1.4-6.5); Neutrophils % (auto) 87.8 %; Platelet Count 280 K/uL (130-400); RDW Coefficient of Variation 12.9 % (11.5-14.5); RDW Standard Deviation 40.3 fL (36.4-46.3); Red Blood Count 5.07 M/uL (4.7-6.1); White Blood Count 17.37 K/uL (4.8-10.8)
[2021-08-22] MEDS ORDERED: MoRPHine SULFATE 4 MG/ML 1 ML CARP\\VIAL ONE (15:17)
--- NOTE | 2021-08-22 15:21 | History & Physical Report ---
Date of Service August 22, 2021 Assessment & Plan (1) Intertrochanteric fracture of right femur: (2) Right hip pain: (3) Tobacco abuse: Plan: 61 yr old otherwise healthy M except for chewing tobacco use who presents to ED after sustaining a fall while skiing and injury R femur: Acute mildly impacted nondisplaced intertrochanteric fracture of right femur, closed Right hip pain Admit to medical Consult orthopedics -Dr. Rangel Consult anesthesia - Dr. Berger NPO after midnight will give 500ml IVF bolus now due to borderline low BP IV morphine 4mg severe pain, Oral oxycodone 5mg IR for moderate pain; APAP for mild pain SCD/TEDS for vte ppx until post op bed rest MRSA swab and pre op antibiotics ordered awaiting pre op testing CXR: reviewed, EKG reviewed, SB, poor quality in lead v3/4, nursing to obtain another Leukocytosis wbc 17k likely in setting of trauma no s/sx of infection, afebrile obtain UA Tobacco abuse encourage tobacco cessation pt chews snuff declines nicotine patch Dvt ppx: SCD/TEDS for now due to possible procedure tomorrow FULL CODE PCP: Leonard Dispo: Med/surg, awaiting hip surgery, likely d/c to home post op Pt was seen and examined in collaboration with Dr. Dubose, please see addendum History of Present Illness Chief Complaint: Right hip pain after falling while skiing prior to arrival. Primary Care Provider: James Valle DO This is a 61-year-old male who is otherwise healthy who presents to ED after sustaining a fall while skiing at [employer] prior to arrival with subsequent right hip pain. 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 He was trying out a new pair of skis that he was getting used in his assisted. While skiing he fell on a hard surface on his right side and immediately had pain. He was skiing with his son and was brought to ED. Patient is otherwise healthy at baseline. He does not take any medications on a regular basis. He does chew tobacco, but denies smoking. He does occasionally use alcohol but nothing on a regular basis. Currently he complains of pain 3 out of 10. Pain is worse with movement, and improved with rest. He does have prior history of bilateral knee replacements but no other fractures. He denies any recent illness, fever, chills, sweats, lightheadedness, dizziness, chest pain, shortness of breath, cough, URI symptoms, nausea, vomiting, abdominal pain, changes bowel or urinary habits. He is very active at baseline and skis frequently. He denies any chest pain or shortness of breath with exertion. He denies any prior history of hypertension, hyperlipidemia or CAD. He also denies any family history of CAD. Allergies Allergy/AdvReac Type Severity Reaction Status Date / Time No Known Allergies Allergy Verified 08/22/21 15:17 Home Medications Medication Instructions Recorded Confirmed Type No Known Home Medications 08/22/21 08/22/21 History Past Med/Surg History Medical History (Updated 08/22/21 @ 16:08 by Dangelo Jones MD) Osteoarthritis Surgical History H/O hernia repair L inguinal hernia History of adenoidectomy History of bilateral knee arthroplasty History of tonsillectomy History of tooth extraction Family History (Updated 08/22/21 @ 15:10 by Allison Carty PA-C) Grandmother (Paternal) Diabetes Other No family history of adverse response to anesthesia Denies family history of Coronary heart disease Heart disease Myocardial infarction Stroke Social History Smoking Status: Never smoker Tobacco Type: Smokeless Tobacco (Dip or Chew) Second Hand Exposure: No; Hx Alcohol Use: Yes Alcohol type: beer Hx Substance Use: No Preferred Language: Bengali Communication Ability: Effective Utility Tractor Operator Required: No Beliefs That Will Affect Care: None marital status: Current Living Situation: Family Current Living Situation Comment: dtr lives with pt Feels Safe at Home: Yes Assistive Devices: Glasses Review of Systems Review of Systems: All systems reviewed & are unremarkable except as noted in HPI & below Physical Exam Physical Exam: Constitutional: WD/WN, vitals as above, appears in pain, NAD, sitting up in bed, pleasant, conversing easily Head: Normocephalic, Atraumatic Eyes: PERRL, conjunctivae normal, anicteric sclerae ENMT: external ear and nose normal, oropharynx normal Neck: trachea midline, no thyromegaly normal visual inspection Respiratory: normal respiratory effort, lungs clear to auscultation, no wheeze, rales, rhonchi. Normal insp/exp effort, no accessory muscle use Cardiovascular: RRR, no murmur, no edema Vessels: no JVD or carotid bruit Chest: normal inspection of chest Abdomen: normal bowel sounds, soft, nontender, no hepatosplenomegaly Musculoskeletal: Pain to palpation to right lateral hip, no cyanosis or clubbing, active range of motion to bilateral upper extremities, and left lower extremity Skin: no rashes, warm and dry normal turgor Neurologic: PERRL, EOMI, accommodation nl, no face palsy, no dysarthria CN's II-XI intact bilaterally and moves all extremities Psychiatric: A+Ox3, euthymic affect Lymphatic: no cervical or axillary lymphadenopathy : deferred Results & Data Results & Data ([facility]) Vital Signs (Past 12 Hours) Vital Signs Temp Pulse Pulse Resp BP BP Pulse Ox 08/22/21 13:11 36.3 C L 74 74 16 94/61 L 94/61 L 97 Laboratory Results Previously had A1C in 2019 5.2 per [facility] Diagnostic Findings Hip/Pelvis X-Ray 08/22/21 13:33 XR hip RT 2V w pelvis HISTORY: 61 years-old Male right hip pain s/p fall skiing acute right hip pain status post fall COMPARISON: None TECHNIQUE: AP view of the pelvis with frog-leg view of the right hip FINDINGS: Moderate right hip osteoarthritis. Linear lucencies with cortical irregularity noted in the intertrochanteric distribution of the right femur. Minimal impaction without significant displacement. Fracture extends into the lesser trochanter. IMPRESSION: Acute mildly impacted nondisplaced intratrochanteric fracture of the right femur. ACT 112: Negative or not required by law. The above report was generated using voice recognition software. It may contain grammatical, syntax or spelling errors. Electronically signed by: Memo Perez M.D. 08/22/2021 2:18 PM Chest X-Ray 08/22/21 14:29 XR chest 1V portable HISTORY: 61 years-old Male pre-op fall with hip fracture acute chest trauma COMPARISON: Chest radiograph 08/12/2019 TECHNIQUE: Portable AP view the chest FINDINGS: Cardiac silhouette is enlarged. No pneumothorax, pleural effusion, airspace consolidation or overt pulmonary edema. Minimal bibasilar atelectasis/scarring. Degenerative changes of the shoulders and spine. IMPRESSION: No acute process. ACT 112: Negative or not required by law. The above report was generated using voice recognition software. It may contain grammatical, syntax or spelling errors. Electronically signed by: Memo Perez M.D. 08/22/2021 2:44 PM Medications Administered Medication List Discontinued Medications Sodium Chloride (Nss 1000ml) 500 mls @ 999 mls/hr IV .Q31M ONE Stop: 08/22/21 15:41 Last Admin: 08/22/21 15:41 Dose: 999 mls/hr Documented by: Morphine Sulfate (Morphine Sulfate 4 Mg/Ml 1 Ml Carp\Vial) Confirm Administered Dose 4 mg .ROUTE .STK-MED ONE Stop: 08/22/21 15:18 Last Admin: 08/22/21 15:19 Dose: 4 mg Documented by: ECG Rate (beats per minute): 48 Rhythm: sinus bradycardia Code Status & VTE Plan Code Status FULL CODE VTE Prophylaxis Plan VTE Prophylaxis will be ordered: Yes Supervising Physician Co-Signing Physician Notes Patient was seen and evaluated independently. Chart reviewed. Case was discussed with RHIANNON. I agree with assessment and plan as above Of note, patient is low risk for surgery. CXR normal. EKG shows sinus bradycardia but is otherwise normal. He is optimized for OR.
[2021-08-22 15:25] LABS: INR 1.1 (0.9-1.1); Partial Thromboplastin Ratio 0.7; Partial Thromboplastin Time 20.3 Seconds (21.0-31.0); Prothrombin Time 12.1 Seconds (9.0-12.0)
[2021-08-22 15:33] LABS: BUN Creatinine Ratio 15.2 (10-20); Calcium 9.6 mg/dl (8.5-10.1); Creatinine Clr Calc Pharmacy 90.9 ml/min; Est GFR (African American) 93.6 ml/min; Est GFR (Non-African American) 80.7 ml/min; Potassium 3.7 mmol/L (3.5-5.1)
[2021-08-22] MEDS ORDERED: ALUMINUM/MAGNESIUM SUSP 30 ML UDC PO PRN (16:37)
[2021-08-22] MEDS ORDERED: MoRPHine SULFATE 4 MG/ML 1 ML CARP\\VIAL IV PRN (16:37)
[2021-08-22] MEDS ORDERED: MAGNESIUM HYDROXIDE SUSP 30 ML UDC PO PRN (16:37)
[2021-08-22] MEDS ORDERED: oxyCODONE HCL IR 5 MG TAB (IMMEDIATE RELEASE) PO PRN (16:37)
[2021-08-22] MEDS ORDERED: bisacodyL 10 MG SUPP PR PRN (16:37)
[2021-08-22] MEDS ORDERED: MoRPHine SULFATE 2 MG/ML CARP IV PRN (16:37)
[2021-08-22] MEDS ORDERED: POLYETHYLENE (MIRALAX) 17 GM PACK PO PRN (16:37)
[2021-08-22] MEDS ORDERED: ONDANSETRON INJ 2 MG/ML 2 ML VIAL IV PRN (16:37)
[2021-08-22] MEDS ORDERED: NALOXONE HCL 0.4 MG/1 ML VIAL/CARP IV PRN (16:37)
[2021-08-22] MEDS: DOCUSATE SODIUM/SENNA 50/8.6MG TAB PO SCH (20:03)
[2021-08-22] MEDS: oxyCODONE HCL IR 5 MG TAB (IMMEDIATE RELEASE) PO PRN (20:38)
[2021-08-22] MEDS: ACETAMINOPHEN 325 MG TAB PO PRN (20:38)
[2021-08-22 21:21] LABS: Appearance Urine Clear (Clear); Bilirubin Urine Negative (Negative); Blood Urine Negative (Negative); Color Urine Yellow; Glucose Urine UA Negative (Negative); Ketones Urine Trace (Negative); Leukocyte Esterase Urine Negative (Negative); Nitrite Urine Negative (Negative); Protein Urine Negative (Negative); Specific Gravity Urine 1.019 (1.000-1.030); Urobilinogen Urine Negative (Negative)
[2021-08-22] MEDS: tiZANidine HCL 4 MG TABLET PO PRN (22:04)
[2021-08-23] MEDS: LACTATED RINGER'S 1,000 ML IV SCH ×2 (00:07→13:04)
[2021-08-23] MEDS: oxyCODONE HCL IR 5 MG TAB (IMMEDIATE RELEASE) PO PRN ×3 (04:12→13:01)
[2021-08-23] MEDS: ACETAMINOPHEN 325 MG TAB PO PRN (04:12)
--- NOTE | 2021-08-23 05:41 | Electrocardiogram Report ---
Test Reason : Blood Pressure : / mmHG Vent. Rate : 048 BPM Atrial Rate : 048 BPM P-R Int : 148 ms QRS Dur : 092 ms QT Int : 432 ms P-R-T Axes : 032 -04 057 degrees QTc Int : 385 ms Sinus bradycardia When compared with ECG of 12-AUG-2019 09:16, No significant change was found Confirmed by Ryan Salas ([id number]) on 08/23/2021 5:40:58 AM Referred By: REFERRED SELF Confirmed By:Ryan Salas
--- NOTE | 2021-08-23 05:44 | Electrocardiogram Report ---
Test Reason : Blood Pressure : / mmHG Vent. Rate : 054 BPM Atrial Rate : 054 BPM P-R Int : 128 ms QRS Dur : 102 ms QT Int : 430 ms P-R-T Axes : 019 -09 060 degrees QTc Int : 407 ms Sinus bradycardia with marked sinus arrhythmia Otherwise normal ECG When compared with ECG of 22-AUG-2021 15:29, No significant change was found Confirmed by Ryan Salas ([id number]) on 08/23/2021 5:43:40 AM Referred By: REFERRED SELF Confirmed By:Ryan Salas
[2021-08-23] MEDS ORDERED: ceFAZolin 2000MG 2,000 MG/15 ML SYR IV SCH (06:00)
[2021-08-23] MEDS ORDERED: TRANEXAMIC ACID / 0.7% NACL 1,000 MG/100 ML BAG IV SCH ×2 (06:00→06:30)
[2021-08-23 06:33] LABS: Hematocrit (blood only) 42.3 % (42-52); Hemoglobin 14.3 g/dL (14.0-18.0); Mean Corpuscular Hemoglobin 29.6 pg (25-34); Mean Corpuscular Hgb Conc 33.8 g/dL (32-36); Mean Corpuscular Volume 87.6 fL (80-100); Mean Platelet Volume 9.9 fL (7.4-10.4); Platelet Count 260 K/uL (130-400); RDW Coefficient of Variation 13.1 % (11.5-14.5); RDW Standard Deviation 42.4 fL (36.4-46.3); Red Blood Count 4.83 M/uL (4.7-6.1); White Blood Count 8.97 K/uL (4.8-10.8)
[2021-08-23 07:21] LABS: BUN Creatinine Ratio 16.9 (10-20); Calcium 8.4 mg/dl (8.5-10.1); Creatinine Clr Calc Pharmacy 101.1 ml/min; Est GFR (African American) 105.5 ml/min; Potassium 4.6 mmol/L (3.5-5.1)
[2021-08-23] MEDS: tiZANidine HCL 4 MG TABLET PO PRN (08:50)
--- NOTE | 2021-08-23 08:53 | Orthopedic Consultation ---
Date of Consultation August 23, 2021 Assessment & Plan (1) Intertrochanteric fracture of right femur: X-rays reviewed by myself and Dr. Rangel. Patient will require a right TFN. Continue n.p.o. status. Plan for right TFN later this afternoon. History of Present Illness Reason for Consultation: Right intertrochanteric hip fracture Attending Physician: Светлана Dubose MD History of Present Illness Patient is a 61-year-old male known to our practice who was trying out some new skis yesterday on [facility].Patient is newly retired and was enjoying his day. He states that she was skiing downhill he ended up falling onto his right side. He states that he fell very hard and had immediate pain in his r ight hip and groin. He was unable to get up and ambulate. He states that he basically slid down the hill on his butt to get to the bottom. He was brought to the emergency room where he was seen by the staff. X-rays were taken. It was found that he had a minimally displaced intertrochanteric right hip fracture. He was admitted by the hospitalist service and we have been asked to take care of his right hip fracture. Patient denies any loss of consciousness. There was no shortness of breath, chest pain, lightheadedness prior to or after the fall. Allergies Allergy/AdvReac Type Severity Reaction Status Date / Time No Known Allergies Allergy Verified 08/22/21 15:17 Home Medications Medication Instructions Recorded Confirmed Type No Known Home Medications 08/22/21 08/22/21 History Patient History Medical History Osteoarthritis Surgical History H/O hernia repair L inguinal hernia History of adenoidectomy History of bilateral knee arthroplasty History of tonsillectomy History of tooth extraction Family History Grandmother (Paternal) Diabetes Other No family history of adverse response to anesthesia Denies family history of Coronary heart disease Heart disease Myocardial infarction Stroke Social History Smoking Status: Never smoker Tobacco Type: Smokeless Tobacco (Dip or Chew) Second Hand Exposure: No; Hx Alcohol Use: Yes Alcohol type: beer Hx Substance Use: No Preferred Language: Sierra Leonean Communication Ability: Effective Billet Worker Required: No Beliefs That Will Affect Care: None marital status: Current Living Situation: Family Current Living Situation Comment: dtr lives with pt Other Information That Helps Us Care for You: No Feels Safe at Home: Yes Safety Concerns: Feels Safe At This Time Physical Exam Physical Exam: Patient is a 61-year-old white male who appears his stated age. He is awake and alert. Oriented x3. No acute distress. Pleasant and cooperative. On examination of his right lower extremity, he has some slight leg length discrepancy right compared to left. Range of motion of the right hip is deferred secondary to hip fracture. As is right knee range of motion. His right knee has a well-healed incision on his right knee from previous TKA. No obvious swelling at this time. He is nontender on palpation. He has good range of motion of his right ankle and toes. He states he does have some mild numbn ess and tingling in his toes of which is not new. He states that this is not accentuated since the fall. Left lower extremity is unaffected and he is nontender at the left hip, knee, ankle. Well-healed incision from his left TKA is noted. No overt swelling. Upper extremities are unaffected at this time. He is nontender at the shoulders, elbows, and wrists. Range of motion is within normal limits. Distal pulses are equal laterally of the upper and lower extremities. Other than his mild numbness in his toes, there is no gross motor or sensory loss seen at this time. Results & Data ([facility]) Vital Signs (Past 12 Hours) Vital Signs Temp Pulse Resp BP Pulse Ox 08/23/21 07:32 36.7 C 50 L 16 135/74 99 08/22/21 22:00 37.4 C 58 L 16 134/70 94 Laboratory Results Laboratory Results WBC 8.97 K/uL (4.8-10.8) 08/23/21 06:04 RBC 4.83 M/uL (4.7-6.1) 08/23/21 06:04 Hgb 14.3 g/dL (14.0-18.0) 08/23/21 06:04 Hct 42.3 % (42-52) 08/23/21 06:04 MCV 87.6 fL (80-100) 08/23/21 06:04 MCH 29.6 pg (25-34) 08/23/21 06:04 MCHC 33.8 g/dL (32-36) 08/23/21 06:04 RDW Std Deviation 42.4 fL (36.4-46.3) 08/23/21 06:04 RDW Coeff of David 13.1 % (11.5-14.5) 08/23/21 06:04 Plt Count 260 K/uL (130-400) 08/23/21 06:04 MPV 9.9 fL (7.4-10.4) 08/23/21 06:04 Immature Gran % (Auto) 0.2 % 08/22/21 15:01 Neut % (Auto) 87.8 % 08/22/21 15:01 Lymph % (Auto) 5.5 % 08/22/21 15:01 [place] % (Auto) 5.7 % 08/22/21 15:01 Eos % (Auto) 0.6 % 08/22/21 15:01 Baso % (Auto) 0.2 % 08/22/21 15:01 Neut # (Auto) 15.23 K/uL (1.4-6.5) H 08/22/21 15:01 Lymph # (Auto) 0.96 K/uL (1.2-3.4) L 08/22/21 15:01 [place] # (Auto) 0.99 K/uL (0.11-0.59) H 08/22/21 15:01 Eos # (Auto) 0.11 K/uL (0-0.5) 08/22/21 15:01 Baso # (Auto) 0.04 K/uL (0-0.2) 08/22/21 15:01 Immature Gran # (Auto) 0.04 K/uL (0.00-0.02) H 08/22/21 15:01 PT 12.1 Seconds (9.0-12.0) H 08/22/21 15:01 INR 1.1 (0.9-1.1) 08/22/21 15:01 APTT 20.3 Seconds (21.0-31.0) L 08/22/21 15:01 PTT Ratio 0.7 08/22/21 15:01 Sodium 138 mmol/L (136-145) 08/23/21 06:04 Potassium 4.6 mmol/L (3.5-5.1) D 08/23/21 06:04 Chloride 104 mmol/L (98-107) 08/23/21 06:04 Carbon Dioxide 32 mmol/L (21-32) 08/23/21 06:04 Anion Gap 2 (3-11) L 08/23/21 06:04 BUN 15 mg/dl (6-23) 08/23/21 06:04 Creatinine 0.89 mg/dl (0.6-1.4) 08/23/21 06:04 Est Cr Clr Drug Dosing 101.1 ml/min 08/23/21 06:04 Est GFR ( Amer) 105.5 ml/min 08/23/21 06:04 Est GFR (Non-Af Amer) 91.0 ml/min 08/23/21 06:04 BUN/Creatinine Ratio 16.9 (10-20) 08/23/21 06:04 Glucose 87 mg/dl (70-99(Fasting)) 08/23/21 06:04 Calcium 8.4 mg/dl (8.5-10.1) L 08/23/21 06:04 Urine Color Yellow 08/22/21 20:54 Urine Appearance Clear (Clear) 08/22/21 20:54 Urine pH 5.0 (4.5-7.5) 08/22/21 20:54 Ur Specific [place] 1.019 (1.000-1.030) 08/22/21 20:54 Urine Protein Negative (Negative) 08/22/21 20:54 Urine Glucose (UA) Negative (Negative) 08/22/21 20:54 Urine Ketones Trace (Negative) H 08/22/21 20:54 Urine Blood Negative (Negative) 08/22/21 20:54 Urine Nitrite Negative (Negative) 08/22/21 20:54 Urine Bilirubin Negative (Negative) 08/22/21 20:54 Urine Urobilinogen Negative (Negative) 08/22/21 20:54 Ur Leukocyte Esterase Negative (Negative) 08/22/21 20:54 Nasal Screen MRSA (PCR) Negative (Negative) 03/13/22 Unknown SARS-CoV-2, RNA, NAAT NEGATIVE (NEGATIVE) 08/22/21 15:01 Blood Type AB Positive 08/22/21 16:48 Antibody Screen NEGATIVE 08/22/21 16:48 Impressions Hip/Pelvis X-Ray 08/22/21 13:33 XR hip RT 2V w pelvis HISTORY: 61 years-old Male right hip pain s/p fall skiing acute right hip pain status post fall COMPARISON: None TECHNIQUE: AP view of the pelvis with frog-leg view of the right hip FINDINGS: Moderate right hip osteoarthritis. Linear lucencies with cortical irregularity n oted in the intertrochanteric distribution of the right femur. Minimal impaction without significant displacement. Fracture extends into the lesser trochanter. IMPRESSION: Acute mildly impacted nondisplaced intratrochanteric fracture of the right femur. ACT 112: Negative or not required by law. The above report was generated using voice recognition software. It may contain grammatical, syntax or spelling errors. Electronically signed by: Memo Perez M.D. 08/22/2021 2:18 PM (1) Intertrochanteric fracture of right femur Encounter type: initial encounter Fracture alignment: nondisplaced Fracture type: closed Qualified Code(s): S72.144A - Nondisplaced intertrochanteric fracture of right femur, initial encounter for closed fracture
--- NOTE | 2021-08-23 10:19 | Hospitalist Progress Note ---
Date of Service August 23, 2021 Assessment & Plan (1) Intertrochanteric fracture of right femur: (2) Right hip pain: (3) Tobacco abuse: Plan: 61 yr old otherwise healthy M except for chewing tobacco use who presents to ED after sustaining a fall while skiing and injury R femur: Acute mildly impacted nondisplaced intertrochanteric fracture of right femur, closed Right hip pain Admit to medical Consult orthopedics -Dr. Rangel Consult anesthesia - Dr. Berger NPO after midnight IV morphine 4mg severe pain, Oral oxycodone 5mg IR for moderate pain; APAP for mild pain SCD/TEDS for vte ppx until post op bed rest MRSA swab and pre op antibiotics ordered CXR: reviewed, EKG reviewed Plan is for surgical fixation today at 1600 Leukocytosis wbc 17k on admission - resolved likely in setting of trauma no s/sx of infection, afebrile Tobacco abuse encourage tobacco cessation pt chews snuff declines nicotine patch Dvt ppx: SCD/TEDS for now due to possible procedure tomorrow FULL CODE PCP: Leonard Dispo: Med/surg, hip surgery today, dispo will be decided post operatively after PT/OT assessment, pt independent at baseline Pt was seen and examined in collaboration with Dr. Dubose, please see addendum Admission and Anticipated Discharge Date Admission Date: August 22, 2021 Supervising Physician Co-Signing Physician Notes Patient was seen and evaluated independently. Chart was reviewed. Case reviewed with RHIANNON. Patient is low risk for surgery, can proceed with no further workup. Subjective Pt was seen and examined in room 383-2. Follow up R hip fx. As long as pt stays still he has no pain. He is already sick of laying in bed. Pain currently 4/10. Denies f/c/s, chest pain, sob, cough, n/v/d. He remains NPO and plan is for surgery at 1600 today. Review of Systems Review of Systems: All systems reviewed & are unremarkable except as noted in HPI & below Physical Exam Physical Exam: Gen: WD/WN, NAD, A&O x3 HEENT: Normocephalic, atraumatic, conjunctivae moist, sclerae anicteric, mucous membranes moist. Lung: Clear to Auscultation bilaterally, no wheezes/rales/rhonchi Heart: Regular rate, regular rhythm, no murmurs, rubs, or gallops Abdomen: Soft, NT, ND +BS x 4 Extremities: No edema Skin: Warm, no rash, negative turgor. Results & Data Results & Data ([facility]) Vital Signs (Past 12 Hours) Vital Signs Temp Pulse Resp BP Pulse Ox 08/23/21 07:32 36.7 C 50 L 16 135/74 99 Laboratory Results Short CBC 08/22/21 08/23/21 Range/Units 15:01 06:04 WBC 17.37 H 8.97 (4.8-10.8) K/uL Hgb 15.3 14.3 (14.0-18.0) g/dL Hct 43.3 42.3 (42-52) % Plt Count 280 260 (130-400) K/uL BMP 08/22/21 08/23/21 15:01 06:04 Sodium 138 138 Potassium 3.7 4.6 D Chloride 104 104 Carbon Dioxide 27 32 BUN 15 15 Creatinine 0.99 0.89 Glucose 89 87 Calcium 9.6 8.4 L Urine 08/22/21 Range/Units 20:54 Urine Color Yellow Urine Appearance Clear (Clear) Urine pH 5.0 (4.5-7.5) Ur Specific [place] 1.019 (1.000-1.030) Urine Protein Negative (Negative) Urine Glucose (UA) Negative (Negative) Medications Administered Current Inpatient Medications Acetaminophen (Acetaminophen 325 Mg Tab) 650 mg PO Q4H PRN PRN Reason: pain/fever Stop: 09/21/21 16:36 Last Admin: 08/23/21 04:12 Dose: 650 mg Documented by: Al Hydrox/Mg Hydrox/Simethicone (Aluminum/Magnesium Susp 30 Ml Udc) 30 ml PO Q6H PRN PRN Reason: Dyspepsia Stop: 09/21/21 16:36 Bisacodyl (Bisacodyl 10 Mg Supp) 10 mg W[place] DAILY PRN PRN Reason: Constipation Stop: 09/21/21 16:36 Cefazolin Sodium (Ancef 2000mg) 2,000 mg in 15 mls @ 3.75 mls/min IV PREOP CATE; Protocol Stop: 08/24/21 05:59 Lactated Ringer's (Lr) 1,000 mls @ 75 mls/hr IV .[id number] CATE Stop: 09/22/21 00:00 Last Infusion: 08/23/21 06:41 Dose: 75 mls/hr Documented by: Magnesium Hydroxide (Magnesium Hydroxide Susp 30 Ml Udc) 30 ml PO Q6H PRN PRN Reason: Constipation Stop: 09/21/21 16:36 Morphine Sulfate (Morphine Sulfate 2 Mg/Ml Carp) 2 mg IV Q3H PRN PRN Reason: Pain (1,2,3,4,5) & Pre PT Stop: 09/05/21 16:36 Morphine Sulfate (Morphine Sulfate 4 Mg/Ml 1 Ml Carp\Vial) 4 mg IV Q3H PRN PRN Reason: Pain (6,7,8,9,10) Stop: 09/05/21 16:36 Last Admin: 08/22/21 20:02 Dose: 4 mg Documented by: Naloxone HCl (Naloxone Hcl 0.4 Mg/1 Ml Vial/Carp) 0.1 mg IV UD PRN PRN Reason: Opiate Overdose Stop: 09/21/21 16:36 Ondansetron HCl (Ondansetron Inj 2 Mg/Ml 2 Ml Vial) 4 mg IV Q6H PRN PRN Reason: Nausea Stop: 09/21/21 16:36 Oxycodone HCl (Oxycodone Hcl Ir 5 Mg Tab (Immediate Release)) 5 mg PO Q4H PRN PRN Reason: MODERATE Pain (4,5,6) & Pre PT Stop: 09/05/21 16:36 Oxycodone HCl (Oxycodone Hcl Ir 5 Mg Tab (Immediate Release)) 10 mg PO Q4H PRN PRN Reason: SEVERE Pain (7,8,9,10) Stop: 09/05/21 16:36 Last Admin: 08/23/21 04:12 Dose: 10 mg Documented by: Polyethylene Glycol (Polyethylene (Miralax) 17 Gm Pack) 17 gm PO DAILY PRN PRN Reason: Constipation Stop: 09/21/21 16:36 Senna/Docusate Sodium (Docusate Sodium/Senna 50/8.6mg Tab) 2 tab PO HS CATE Stop: 09/21/21 20:59 Last Admin: 08/22/21 20:03 Dose: 2 tab Documented by: Tizanidine HCl (Tizanidine Hcl 4 Mg Tablet) 2 mg PO TID PRN PRN Reason: spasm Stop: 09/21/21 21:03 Last Admin: 08/22/21 22:04 Dose: 2 mg Documented by: (1) Intertrochanteric fracture of right femur Encounter type: initial encounter Fracture alignment: nondisplaced Fracture type: closed Qualified Code(s): S72.144A - Nondisplaced intertrochanteric fracture of right femur, initial encounter for closed fracture
--- NOTE | 2021-08-23 15:45 | Anesthesiology Consultation ---
Date of Service August 23, 2021 Assessment & Plan (1) Encounter for pre-operative examination: Chart Review Chart Review: Acceptable Risk for Surgery and Patient NOT seen in Pre Admission Testing Consults Requested none History Surgery Operation Date: 08/23/21 12:20 Proposed Procedures p Right Troch Nail - Memo Fredy Rangel, Height/Weight Height: 6 ft Weight: 93.9 kg Allergies Allergy/AdvReac Type Severity Reaction Status Date / Time No Known Allergies Allergy Verified 08/22/21 15:17 Medications Home Medications Medication Instructions Recorded Confirmed Last Taken No Known Home Medications 08/22/21 08/22/21 Unknown Active Medications Generic Name Dose Route Start Last Admin Trade Name Freq PRN Reason Stop Dose Admin Acetaminophen 650 mg 08/22/21 16:37 08/23/21 04:12 Acetaminophen 325 Mg Tab PO 09/21/21 16:36 650 mg Q4H PRN Administration pain/fever Lactated Ringer's 1,000 mls @ 75 mls/hr 08/23/21 00:00 08/23/21 13:04 Lr IV 09/22/21 00:00 75 mls/hr .[id number] CATE Administration Morphine Sulfate 4 mg 08/22/21 16:37 08/22/21 20:02 Morphine Sulfate 4 Mg/Ml 1 Ml Carp\Vial IV 09/05/21 16:36 4 mg Q3H PRN Administration Pain (6,7,8,9,10) Oxycodone HCl 10 mg 08/22/21 16:37 08/23/21 13:01 Oxycodone Hcl Ir 5 Mg Tab (Immediate Release) PO 09/05/21 16:36 10 mg Q4H PRN Administration SEVERE Pain (7,8,9,10) Senna/Docusate Sodium 2 tab 08/22/21 21:00 08/22/21 20:03 Docusate Sodium/Senna 50/8.6mg Tab PO 09/21/21 20:59 2 tab HS CATE Administration Tizanidine HCl 2 mg 08/22/21 21:04 08/23/21 08:50 Tizanidine Hcl 4 Mg Tablet PO 09/21/21 21:03 2 mg TID PRN Administration spasm Past Medical History Medical History Osteoarthritis Past Family History Family History Grandmother (Paternal) Diabetes Other No family history of adverse response to anesthesia Denies family history of Coronary heart disease Heart disease Myocardial infarction Stroke Past Surgical History Surgical History H/O hernia repair L inguinal hernia History of adenoidectomy History of bilateral knee arthroplasty History of tonsillectomy History of tooth extraction Social History Smoking Status: Never smoker tobacco type: smokeless tobacco Hx Alcohol Use: Yes Alcohol type: beer alcohol intake frequency: a few times a month Hx Substance Use: No substance use type: does not use Physical Exam Vital Signs Last Vital Signs Temp 36.6 C 08/23/21 14:21 Pulse 50 L 08/23/21 14:21 Resp 16 08/23/21 14:21 BP 128/77 08/23/21 14:21 Pulse Ox 95 08/23/21 14:21 Testing Laboratory Results 08/23/21 06:04 08/23/21 06:04 PT 12.1 Seconds (9.0-12.0) H 08/22/21 15:01 INR 1.1 (0.9-1.1) 08/22/21 15:01 APTT 20.3 Seconds (21.0-31.0) L 08/22/21 15:01 Urine Color Yellow 08/22/21 20:54 Urine Appearance Clear (Clear) 08/22/21 20:54 Urine pH 5.0 (4.5-7.5) 08/22/21 20:54 Ur Specific [place] 1.019 (1.000-1.030) 08/22/21 20:54 Urine Protein Negative (Negative) 08/22/21 20:54 Urine Glucose (UA) Negative (Negative) 08/22/21 20:54 Urine Ketones Trace (Negative) H 08/22/21 20:54 Urine Nitrite Negative (Negative) 08/22/21 20:54 Ur Leukocyte Esterase Negative (Negative) 08/22/21 20:54 Blood Type AB Positive 08/22/21 16:48 Antibody Screen NEGATIVE 08/22/21 16:48 Electrocardiogram Date: 08/22/21 Findings: + SB @ (54) Chest X-Ray Date: 08/22/21 Findings: + NAD
[2021-08-23] MEDS ORDERED: MIDAZOLAM HCL 1 MG/ML 2ML VIAL ONE ×2 (16:01→16:13)
[2021-08-23] MEDS ORDERED: LIDOCAINE 2% 2 ML VIAL/AMP(20MG/ML) INFIL ONE (16:30)
[2021-08-23] MEDS ORDERED: PROPOFOL IV EMULSION 10 MG/ML 20 ML VIAL IV ONE (16:30)
[2021-08-23] MEDS ORDERED: fentaNYL citrate 100 MCG/2 ML VIAL ONE (16:30)
[2021-08-23] MEDS ORDERED: ONDANSETRON INJ 2 MG/ML 2 ML VIAL IV PRN (16:31)
[2021-08-23] MEDS ORDERED: ATROPINE SULFATE 0.1 MG/ML 10ML SYR IV PRN (16:31)
[2021-08-23] MEDS ORDERED: HYDROmorphone INJ 2 MG/ML SYR/VIAL IV PRN (16:31)
[2021-08-23] MEDS ORDERED: ePHEDrine sulfate 50 MG/ML AMP IV PRN (16:31)
[2021-08-23] MEDS ORDERED: PROMETHAZINE HCL 12.5 MG in SODIUM CHLORIDE 0.9% 50 ML IV PRN (16:31)
[2021-08-23] MEDS ORDERED: TRANEXAMIC ACID / 0.7% NACL 1000MG/100ML BAG IV ONE (16:45)
--- NOTE | 2021-08-23 16:45 | History & Physical Bridge Note ---
Date of Service August 23, 2021 History & Physical Bridge Note I have examined the patient, reviewed the History & Physical and in the interval since the performance of the History & Physical I have noted the following changes of clinical significance: no changes noted. Plan for OR for Right hip cephalomedullary nail.
[2021-08-23] MEDS ORDERED: BUPIVACAINE/EPINEPHRINE 0.25% 1:200,000 30 ML VIAL ONE (16:51)
[2021-08-23] MEDS ORDERED: DEXAMETHASONE SOD INJ 4 MG/ML VIAL ONE (17:17)
[2021-08-23] MEDS ORDERED: ONDANSETRON INJ 2 MG/ML 2 ML VIAL ONE (17:17)
[2021-08-23] MEDS ORDERED: ROCURONIUM BROMIDE 10 MG/ML 5 ML VIAL IV ONE (17:17)
[2021-08-23] MEDS ORDERED: PHENYLEPHRINE 100MCG/ML 5ML SYR ONE (18:14)
[2021-08-23] MEDS ORDERED: ePHEDrine sulfate 50 MG/ML SYR ONE (18:14)
--- NOTE | 2021-08-23 18:14 | Post Operative Brief Note ---
Immediate Post Op Note v1 Date of Surgery August 23, 2021 Pre & Post Diagnosis Operation Date: 08/23/21 12:20 Pre-Op Diagnosis: Intertrochanteric fracture of right femur Post-Op Diagnosis: Intertrochanteric fracture of right femur I identified the patient and participated in the time-out.: Yes Procedure Operation Date: 08/23/21 12:20 Actual Procedures p Right Troch Nail(Right) - Memo Rangel DO Surgeon Memo Rangel DO [employer] Manager none Estimated Blood Loss 50 Findings Consistent with Post-Op Diagnosis Right intertrochanteric femur fracture Anesthesia Type General Complications None Disposition Disposition: Recovery Room
--- NOTE | 2021-08-23 18:20 | Fluoroscopy Report ---
INTRAOPERATIVE RADIOGRAPHS CLINICAL HISTORY: Open reduction and internal fixation of the right proximal femur. Fluoroscopy time: 72 seconds. FINDINGS: 4 spot fluoroscopic views of the right proximal femur are correlated with radiographs dated 08/22/2021. Intertrochanteric and intramedullary nails have been placed transfixing an intertrochante cecilia fracture. There has been presybeterian of near-anatomic alignment. A single cortical lag screw chandra sfixes the distal end of the intramedullary nail. The orthopedic hardware appears intact. IMPRESSION: Intraoperative images from open reduction and internal fixation of the right proximal fem ur. Electronically signed by: Christ Warren M.D. 08/23/2021 6:18 PM
[2021-08-23] MEDS: fentaNYL citrate 100 MCG/2 ML VIAL IV PRN ×2 (18:24→18:29)
--- NOTE | 2021-08-23 18:26 | Operative Report ---
Post Operative Report Pre & Post Diagnosis Operation Date: 08/23/21 12:20 Pre-Op Diagnosis: Intertrochanteric fracture of right femur Post-Op Diagnosis: Intertrochanteric fracture of right femur I identified the patient and participated in the time-out.: Yes Procedure Operation Date: 08/23/21 12:20 Actual Procedures p Right Troch Nail(Right) - Memo Rangel DO Surgeon Memo Rangel DO Pilot Plant Supervisor none Estimated Blood Loss 50 Findings Consistent with Post-Op Diagnosis See dictation Specimens None Anesthesia Type General Complications None Indications 61-year-old male who fell yesterday while skiing and landed on his right hip he noted immediate plan and difficulty with ambulating. He presented to [facility] emergency department and radiographs were obtained demonstrating a right intertrochanteric femur fracture. He was admitted to medical service and orthopedics was consulted for operative management. Preoperatively I met with the patient we lengthy discussion regarding risk benefits and potential complic ations of right hip cephalomedullary nail. After reviewing these he elected proceed with surgical invention and written consent was obtained. Description of Procedure Patient was properly marked and identified in the preoperative holding area he was then taken back to the operative suite where he received 2 g of Ancef per protocol. After successful induction of anesthesia he was then transferred over to the manual fracture table. Using the assistance of fluoroscopy his fracture was reduced to a stable position. The patient was then prepped and draped in the standard orthopedic fashion and timeout was then performed. A 3 cm incision superior to the tip of the trochanter was then made through the skin subcutaneous tissue and gluteal fascia. A threaded guidewire was then inserted into the tip of the trochanter advanced into the medullary canal. Its position was confirmed on AP and lateral fluoroscopy and noted be satisfactory. An op ening reamer was then used to open the proximal aspect of the canal. Threaded guidewire and reamer were then removed. A 11 mm x 170 mm 130 degree Synthes TFN was then inserted into the medullary canal. Lateral outrigger was attached and incision site was marked for the lag screw. Incision was then made through the skin subcutaneous tissue and IT band fascia. Triple sleeve guide was then advan kimmy down to bone. A threaded guidewire was then inserted into the lateral cortex and advanced into the femoral head and a center center position just beneath the subchondral bone. Its position was confirmed on AP and lateral fluoroscopy. Length of the implant was then measured and noted to be 115 mm. A lateral cortical reamer followed by a tapered reamer set to 115 mm was then used. A tap was then used to prepare the femoral head. 115 mm fenestrated screw was then inserted and then slightly compressed and the nail was locked statically at the proximal aspect. Attention was then turned to placement of the distal interlock. Triple sleeve guide was then placed and incision was made through skin subcutaneous tissue and IT band fascia. Triple sleeve guide was then advanced down to bone and a 4 mm drill was used to drill bicortically. Length was then measured and a 38 x 5 mm screw was then inserted. At this point the proximal regular was then removed and final radiographs were obtained. Wounds were then copiously irrigated and the deep fascia was closed using 0 Vicryl followed by 2-0 Vicryl for the subcutaneous tissue and natasha for the skin. Local anesthetic was then injected around incision sites and a sterile Silverlon dressing was placed. The patient tolerated procedure well and was taken to the recovery room in hemodynamically stable condition. Implants: Synthes right TFN 11 mm x 170 mm 130 degree, 115 mm fenestrated lag screw, 5 mm x 38 mm locking screw I attest to the content of the Intraoperative Record and any orders documented therein. Any exceptions are noted below.
--- NOTE | 2021-08-23 18:55 | Anesthesiology Progress Note ---
Date of Service August 23, 2021 Anesthesia Post Procedure Vital Signs Vital Signs: Temp Pulse Pulse Resp BP Pulse Ox 08/23/21 18:50 64 12 139/82 98 08/23/21 18:40 65 12 129/81 96 08/23/21 18:30 67 19 152/88 H 96 08/23/21 18:21 36.0 C L 74 16 150/86 H 97 08/23/21 14:21 36.6 C 50 L 16 128/77 95 08/23/21 07:32 36.7 C 50 L 16 135/74 99 08/22/21 22:00 37.4 C 58 L 16 134/70 94 Pain Intensity Right Hip: Pain Intensity: 4 Transfer of Care Handoff Completed per policy Notes Mental Status: alert / awake / arousable and participated in evaluation Patient Amnestic to Procedure: Yes Nausea / Vomiting: adequately controlled Pain: adequately controlled Airway Patency, RR, SpO2: stable & adequate BP & HR: stable & adequate Hydration State: stable & adequate Anesthetic Complications: no major complications apparent and Pt Satisfied with anesthetic care
[2021-08-23] MEDS ORDERED: ceFAZolin 2000MG 2,000 MG/15 ML SYR IV ONE (19:20)
[2021-08-23] MEDS: ASPIRIN 81 MG ECTAB PO SCH (21:50)
[2021-08-23] MEDS: DOCUSATE SODIUM/SENNA 50/8.6MG TAB PO SCH (21:50)
[2021-08-24] MEDS: LACTATED RINGER'S 1,000 ML IV SCH (00:48)
[2021-08-24 06:12] LABS: Hemoglobin 14.5 g/dL (14.0-18.0); Immature Granulocytes # (auto) 0.01 K/uL (0.00-0.02); Immature Granulocytes % (auto) 0.1 %; Lymphocytes # (auto) 0.51 K/uL (1.2-3.4); Lymphocytes % (auto) 5.3 %; Mean Corpuscular Hemoglobin 30.3 pg (25-34); Mean Corpuscular Hgb Conc 35.4 g/dL (32-36); Mean Corpuscular Volume 85.6 fL (80-100); Mean Platelet Volume 9.8 fL (7.4-10.4); Monocytes % (auto) 6.3 %; Neutrophils # (auto) 8.42 K/uL (1.4-6.5); Neutrophils % (auto) 88.3 %; Platelet Count 280 K/uL (130-400); RDW Coefficient of Variation 12.7 % (11.5-14.5); Red Blood Count 4.79 M/uL (4.7-6.1); White Blood Count 9.54 K/uL (4.8-10.8)
[2021-08-24 06:33] LABS: BUN Creatinine Ratio 13.6 (10-20); Calcium 9.3 mg/dl (8.5-10.1); Creatinine Clr Calc Pharmacy 102.2 ml/min; Est GFR (Non-African American) 91.4 ml/min; Potassium 4.2 mmol/L (3.5-5.1)
[2021-08-24] MEDS: ASPIRIN 81 MG ECTAB PO SCH ×2 (08:20→20:03)
[2021-08-24] MEDS: ACETAMINOPHEN 325 MG TAB PO PRN ×2 (08:22→12:26)
[2021-08-24] MEDS ORDERED: ERGOCALCIFEROL 50,000 UNITS 1250 MCG CAP PO ONE (08:46)
--- NOTE | 2021-08-24 09:37 | Orthopedic Progress Note ---
Date of Service August 24, 2021 Assessment & Plan (1) Intertrochanteric fracture of right femur: Plan: POD 1 s/p Right TFN PT/OT protocol. WBAT. DVT prophylaxis - ASA bid, SCD's Pain management - Pt feels Tylenol is ok for now. Discussed adding Tramadol or Oxycodone if needed. DC planning - Pt will be staying with friends for a short period before returning home. Will need to work on going up and down steps to accomodate. Admission and Anticipated Discharge Date Admission Date: August 22, 2021 Subjective POD 1 Pt sitting in chair at bedside eating breakfast. Having some soreness in the operative area but tolerating well. States Tylenol seems to be helping. No other complaints at this time. Worked with PT this AM. Feels he may need another day of PT. 5% WB at this time. Has not worked on steps yet. Physical Exam Physical Exam: Dressings C/D/I. Calves soft, NT. NV intact. Toes mobile. Results & Data ([facility]) Vital Signs (Past 12 Hours) Vital Signs Temp Pulse Resp BP Pulse Ox 08/24/21 07:31 36.9 C 76 18 135/75 97 08/24/21 06:30 36.9 C 68 18 130/74 96 08/24/21 02:28 36.5 C 64 16 129/76 96 08/23/21 22:39 36.7 C 74 18 133/76 98 Laboratory Results Laboratory Results WBC 9.54 K/uL (4.8-10.8) 08/24/21 05:38 RBC 4.79 M/uL (4.7-6.1) 08/24/21 05:38 Hgb 14.5 g/dL (14.0-18.0) 08/24/21 05:38 Hct 41.0 % (42-52) L 08/24/21 05:38 MCV 85.6 fL (80-100) 08/24/21 05:38 MCH 30.3 pg (25-34) 08/24/21 05:38 MCHC 35.4 g/dL (32-36) 08/24/21 05:38 RDW Std Deviation 40.0 fL (36.4-46.3) 08/24/21 05:38 RDW Coeff of David 12.7 % (11.5-14.5) 08/24/21 05:38 Plt Count 280 K/uL (130-400) 08/24/21 05:38 MPV 9.8 fL (7.4-10.4) 08/24/21 05:38 Immature Gran % (Auto) 0.1 % 08/24/21 05:38 Neut % (Auto) 88.3 % 08/24/21 05:38 Lymph % (Auto) 5.3 % 08/24/21 05:38 [place] % (Auto) 6.3 % 08/24/21 05:38 Eos % (Auto) 0.0 % 08/24/21 05:38 Baso % (Auto) 0.0 % 08/24/21 05:38 Neut # (Auto) 8.42 K/uL (1.4-6.5) H 08/24/21 05:38 Lymph # (Auto) 0.51 K/uL (1.2-3.4) L 08/24/21 05:38 [place] # (Auto) 0.60 K/uL (0.11-0.59) H 08/24/21 05:38 Eos # (Auto) 0.00 K/uL (0-0.5) 08/24/21 05:38 Baso # (Auto) 0.00 K/uL (0-0.2) 08/24/21 05:38 Immature Gran # (Auto) 0.01 K/uL (0.00-0.02) 08/24/21 05:38 PT 12.1 Seconds (9.0-12.0) H 08/22/21 15:01 INR 1.1 (0.9-1.1) 08/22/21 15:01 APTT 20.3 Seconds (21.0-31.0) L 08/22/21 15:01 PTT Ratio 0.7 08/22/21 15:01 Sodium 135 mmol/L (136-145) L 08/24/21 05:38 Potassium 4.2 mmol/L (3.5-5.1) 08/24/21 05:38 Chloride 100 mmol/L (98-107) 08/24/21 05:38 Carbon Dioxide 30 mmol/L (21-32) 08/24/21 05:38 Anion Gap 5 (3-11) 08/24/21 05:38 BUN 12 mg/dl (6-23) 08/24/21 05:38 Creatinine 0.88 mg/dl (0.6-1.4) 08/24/21 05:38 Est Cr Clr Drug Dosing 102.2 ml/min 08/24/21 05:38 Est GFR ( Amer) 106.0 ml/min 08/24/21 05:38 Est GFR (Non-Af Amer) 91.4 ml/min 08/24/21 05:38 BUN/Creatinine Ratio 13.6 (10-20) 08/24/21 05:38 Glucose 126 mg/dl (70-99(Fasting)) H 08/24/21 05:38 Calcium 9.3 mg/dl (8.5-10.1) 08/24/21 05:38 25-OH Vitamin D Total 19.0 ng/ml (30-100) L 08/24/21 05:38 Urine Color Yellow 08/22/21 20:54 Urine Appearance Clear (Clear) 08/22/21 20:54 Urine pH 5.0 (4.5-7.5) 08/22/21 20:54 Ur Specific [place] 1.019 (1.000-1.030) 08/22/21 20:54 Urine Protein Negative (Negative) 08/22/21 20:54 Urine Glucose (UA) Negative (Negative) 08/22/21 20:54 Urine Ketones Trace (Negative) H 08/22/21 20:54 Urine Blood Negative (Negative) 08/22/21 20:54 Urine Nitrite Negative (Negative) 08/22/21 20:54 Urine Bilirubin Negative (Negative) 08/22/21 20:54 Urine Urobilinogen Negative (Negative) 08/22/21 20:54 Ur Leukocyte Esterase Negative (Negative) 08/22/21 20:54 Nasal Screen MRSA (PCR) Negative (Negative) 08/22/21 Unknown SARS-CoV-2, RNA, NAAT NEGATIVE (NEGATIVE) 08/22/21 15:01 Blood Type AB Positive 08/22/21 16:48 Antibody Screen NEGATIVE 08/22/21 16:48 Impressions Hip/Pelvis X-Ray 08/22/21 13:33 XR hip RT 2V w pelvis HISTORY: 61 years-old Male right hip pain s/p fall skiing acute right hip pain status post fall COMPARISON: None TECHNIQUE: AP view of the pelvis with frog-leg view of the right hip FINDINGS: Moderate right hip osteoarthritis. Linear lucencies with cortical irregularity noted in the intertrochanteric distribution of the right femur. Minimal impaction without significant displacement. Fracture extends into the lesser trochanter. IMPRESSION: Acute mildly impacted nondisplaced intratrochanteric fracture of the right femur. ACT 112: Negative or not required by law. The above report was generated using voice recognition software. It may contain grammatical, syntax or spelling errors. Electronically signed by: Memo Perez M.D. 08/22/2021 2:18 PM Hip X-Ray 08/23/21 16:00 INTRAOPERATIVE RADIOGRAPHS CLINICAL HISTORY: Open reduction and internal fixation of the right proximal femur. Fluoroscopy time: 72 seconds. FINDINGS: 4 spot fluoroscopic views of the right proximal femur are correlated with radiographs dated 08/22/2021. Intertrochanteric and intramedullary nails have been placed transfixing an intertrochanteric fracture. There has been scientologist of near-anatomic alignment. A single cortical lag screw transfixes the distal end of the intramedullary nail. The orthopedic hardware appears intact. IMPRESSION: Intraoperative images from open reduction and internal fixation of the right proximal femur. Electronically signed by: Christ Warren M.D. 08/23/2021 6:18 PM (1) Intertrochanteric fracture of right femur Encounter type: initial encounter Fracture alignment: nondisplaced Fracture type: closed Qualified Code(s): S72.144A - Nondisplaced intertrochanteric fracture of right femur, initial encounter for closed fracture
[2021-08-24] MEDS: CHOLECALCIFEROL 5,000 UNITS 125 MCG TAB PO SCH (11:55)
--- NOTE | 2021-08-24 13:07 | Hospitalist Progress Note ---
Date of Service August 24, 2021 Assessment & Plan (1) Intertrochanteric fracture of right femur: (2) Right hip pain: (3) Tobacco abuse: Plan: 61 yr old otherwise healthy M except for chewing tobacco use who presents to ED after sustaining a fall while skiing and injury R femur: Acute mildly impacted nondisplaced intertrochanteric fracture of right femur, closed Right hip pain Admit to medical S/P R TFN POD #1, Dr. Joshua Peña WBAT IV morphine 4mg severe pain, Oral oxycodone 5mg IR for moderate pain; APAP for mild pain tolerating tylenol for pain ASA BID for dvt prophylaxis per ortho continue PT/OT with plan to d/c with friends to first floor set up hgb stable post op 14.5 Leukocytosis wbc 17k on admission - resolved likely in setting of trauma no s/sx of infection, afebrile Vitamin D deficiency vit d 19 Start supplement, add daily calcium Pt will need DEXA scan as outpt as he has never had in past Tobacco abuse encourage tobacco cessation pt chews snuff declines nicotine patch Dvt ppx: ASA BID per ortho FULL CODE PCP: [facility] Dispo: Med/surg, d/c home with friends to first floor set up, ortho recommends additional day of PT must be able to do steps Pt was seen and examined in collaboration with Dr. Dubose, please see addendum Admission and Anticipated Discharge Date Admission Date: August 22, 2021 Supervising Physician Co-Signing Physician Notes Patient seen and evaluated independently. Chart reviewed. Case discussed with RHIANNON. Patient initially refused rehab and wanted to return to his friends' house. Now agreeing for rehab--> will ask CM tomorrow to send out referrals. Otherwise, remaining assessment and plan as above. Subjective Pt was seen and examined in room 383-2. Follow up R hip fx s/p nailing. He is ready to start PT. He has no pain while sitting, but is anxious to get OOB. Denies f/c/s, chest pain, sob, n/v/d. Did not eat much last night due to lack of appetite. Requesting to go to bathroom to move bowels. Review of Systems Review of Systems: All systems reviewed & are unremarkable except as noted in HPI & below Physical Exam Physical Exam: Gen: WD/WN, NAD, A&O x3 HEENT: Normocephalic, atraumatic, conjunctivae moist, sclerae anicteric, mucous membranes moist. Lung: Clear to Auscultation bilaterally, no wheezes/rales/rhonchi Heart: Regular rate, regular rhythm, no murmurs, rubs, or gallops Abdomen: Soft, NT, ND +BS x 4 Extremities: No edema, RLE dressing cdi Skin: Warm, no rash, negative turgor. Results & Data Results & Data ([facility]) Vital Signs (Past 12 Hours) Vital Signs Temp Pulse Resp BP Pulse Ox 08/24/21 11:28 36.9 C 75 16 137/79 08/24/21 07:31 36.9 C 76 18 135/75 97 08/24/21 06:30 36.9 C 68 18 130/74 96 08/24/21 02:28 36.5 C 64 16 129/76 96 Laboratory Results Short CBC 08/24/21 Range/Units 05:38 WBC 9.54 (4.8-10.8) K/uL Hgb 14.5 (14.0-18.0) g/dL Hct 41.0 L (42-52) % Plt Count 280 (130-400) K/uL BMP 08/24/21 05:38 Sodium 135 L Potassium 4.2 Chloride 100 Carbon Dioxide 30 BUN 12 Creatinine 0.88 Glucose 126 H Calcium 9.3 Medications Administered Current Inpatient Medications Acetaminophen (Acetaminophen 325 Mg Tab) 650 mg PO Q4H PRN PRN Reason: pain/fever Stop: 09/21/21 16:36 Last Admin: 08/24/21 12:26 Dose: 650 mg Documented by: Al Hydrox/Mg Hydrox/Simethicone (Aluminum/Magnesium Susp 30 Ml Udc) 30 ml PO Q6H PRN PRN Reason: Dyspepsia Stop: 09/21/21 16:36 Aspirin (Aspirin 81 Mg Ectab) 81 mg PO BID CATE Stop: 09/22/21 20:59 Last Admin: 08/24/21 08:20 Dose: 81 mg Documented by: Bisacodyl (Bisacodyl 10 Mg Supp) 10 mg VA DAILY PRN PRN Reason: Constipation Stop: 09/21/21 16:36 Magnesium Hydroxide (Magnesium Hydroxide Susp 30 Ml Udc) 30 ml PO Q6H PRN PRN Reason: Constipation Stop: 09/21/21 16:36 Morphine Sulfate (Morphine Sulfate 2 Mg/Ml Carp) 2 mg IV Q3H PRN PRN Reason: Pain (1,2,3,4,5) & Pre PT Stop: 09/05/21 16:36 Morphine Sulfate (Morphine Sulfate 4 Mg/Ml 1 Ml Carp\Vial) 4 mg IV Q3H PRN PRN Reason: Pain (6,7,8,9,10) Stop: 09/05/21 16:36 Last Admin: 08/22/21 20:02 Dose: 4 mg Documented by: Naloxone HCl (Naloxone Hcl 0.4 Mg/1 Ml Vial/Carp) 0.1 mg IV UD PRN PRN Reason: Opiate Overdose Stop: 09/21/21 16:36 Ondansetron HCl (Ondansetron Inj 2 Mg/Ml 2 Ml Vial) 4 mg IV Q6H PRN PRN Reason: Nausea Stop: 09/21/21 16:36 Oxycodone HCl (Oxycodone Hcl Ir 5 Mg Tab (Immediate Release)) 5 mg PO Q4H PRN PRN Reason: MODERATE Pain (4,5,6) & Pre PT Stop: 09/05/21 16:36 Oxycodone HCl (Oxycodone Hcl Ir 5 Mg Tab (Immediate Release)) 10 mg PO Q4H PRN PRN Reason: SEVERE Pain (7,8,9,10) Stop: 09/05/21 16:36 Last Admin: 08/23/21 13:01 Dose: 10 mg Documented by: Polyethylene Glycol (Polyethylene (Miralax) 17 Gm Pack) 17 gm PO DAILY PRN PRN Reason: Constipation Stop: 09/21/21 16:36 Senna/Docusate Sodium (Docusate Sodium/Senna 50/8.6mg Tab) 2 tab PO HS [facility] Stop: 09/21/21 20:59 Last Admin: 08/23/21 21:50 Dose: 2 tab Documented by: Tizanidine HCl (Tizanidine Hcl 4 Mg Tablet) 2 mg PO TID PRN PRN Reason: spasm Stop: 09/21/21 21:03 Last Admin: 08/23/21 08:50 Dose: 2 mg Documented by: Vitamin D (Cholecalciferol 5,000 Units 125 Mcg Tab) 5,000 units PO QAM [facility] Stop: 09/23/21 08:59 Last Admin: 08/24/21 11:55 Dose: 5,000 units Documented by: (1) Intertrochanteric fracture of right femur Encounter type: initial encounter Fracture alignment: nondisplaced Fracture type: closed Qualified Code(s): S72.144A - Nondisplaced intertrochanteric fracture of right femur, initial encounter for closed fracture
[2021-08-24] MEDS: DOCUSATE SODIUM/SENNA 50/8.6MG TAB PO SCH (20:03)
[2021-08-25] MEDS: CALCIUM CARBONATE 1,250 MG/5 ML UDC PO SCH (08:01)
[2021-08-25] MEDS: CHOLECALCIFEROL 5,000 UNITS 125 MCG TAB PO SCH (08:01)
[2021-08-25] MEDS: ASPIRIN 81 MG ECTAB PO SCH ×2 (08:01→20:34)
[2021-08-25] MEDS: tiZANidine HCL 4 MG TABLET PO PRN (08:02)
[2021-08-25] MEDS: oxyCODONE HCL IR 5 MG TAB (IMMEDIATE RELEASE) PO PRN ×3 (08:03→20:01)
--- NOTE | 2021-08-25 12:44 | Hospitalist Progress Note ---
Date of Service August 25, 2021 Assessment & Plan (1) Intertrochanteric fracture of right femur: (2) Right hip pain: (3) Tobacco abuse: Plan: 61 yr old otherwise healthy M except for chewing tobacco use who presents to ED after sustaining a fall while skiing and injury R femur: Acute mildly impacted nondisplaced intertrochanteric fracture of right femur, closed Right hip pain Admit to medical S/P R TFN POD #2, Dr. Joshua Peña WBAT IV morphine 4mg severe pain, Oral oxycodone 5mg IR for moderate pain; APAP for mild pain tolerating tylenol for pain ASA BID for dvt prophylaxis per ortho continue PT/OT - pt [facility], I tried a peer to peer and he was declined due to no medical necessity for acute inpt rehab. He was given options of appeal, SNF or home with friends and home health hgb stable post op 14.5 Leukocytosis wbc 17k on admission - resolved likely in setting of trauma no s/sx of infection, afebrile Vitamin D deficiency vit d 19 Start supplement, add daily calcium Pt will need DEXA scan as outpt as he has never had in past Tobacco abuse encourage tobacco cessation pt chews snuff declines nicotine patch Dvt ppx: ASA BID per ortho FULL CODE PCP: Leonard Dispo: Med/surg, Pt to decide this afternoon how he wants to approach discharge, appeal, SNF or home with services. He will inform CM of his decision. Pt was seen and examined in collaboration with Dr. Fong, please see addendum Admission and Anticipated Discharge Date Admission Date: August 22, 2021 Supervising Physician Co-Signing Physician Notes Patient was seen and examined at bedside. Chart reviewed. Case discussed with Allison KENNEDY and piano case and bench assembler. Agree with documentation above. In summary, this is a 61 year old male with intertrochanteric fracture right femur and is s/p right TFN 08/23/21 . Pain is improving. No bowel bladder issues. Stable for discharge but declined for acute rehab and [id number] review today was upheld. Plan for SNF. Patient undecided where he would like to go and pending bed availability. CM following. Per ortho, to continue ASA bid for DVT prophylaxis at discharge; ortho also adjusted his pain regimen for better pain control. Will follow. Subjective Pt was seen and examined in room 383-2. Follow up R hip fx s/p nailing. He feels good this morning except for R hip pain. He thought he would be getting around more. Denies cp, sob, n/v/d, f/c/s. He is urinating w/o difficulty. Is now agreeable to rehab. Review of Systems Review of Systems: All systems reviewed & are unremarkable except as noted in HPI & below Physical Exam Physical Exam: Gen: WD/WN, NAD, A&O x3 HEENT: Normocephalic, atraumatic, conjunctivae moist, sclerae anicteric, mucous membranes moist. Lung: Clear to Auscultation bilaterally, no wheezes/rales/rhonchi Heart: Regular rate, regular rhythm, no murmurs, rubs, or gallops Abdomen: Soft, NT, ND +BS x 4 Extremities: No edema, RLE dressing cdi Skin: Warm, no rash, negative turgor. Results & Data Results & Data ([facility]) Vital Signs (Past 12 Hours) Vital Signs Temp Pulse Resp BP Pulse Ox 08/25/21 11:21 36.2 C L 70 18 115/66 95 08/25/21 08:10 36.2 C L 70 18 115/66 95 Medications Administered Current Inpatient Medications Acetaminophen (Acetaminophen 325 Mg Tab) 650 mg PO Q4H PRN PRN Reason: pain/fever Stop: 09/21/21 16:36 Last Admin: 08/24/21 12:26 Dose: 650 mg Documented by: Al Hydrox/Mg Hydrox/Simethicone (Aluminum/Magnesium Susp 30 Ml Udc) 30 ml PO Q6H PRN PRN Reason: Dyspepsia Stop: 09/21/21 16:36 Aspirin (Aspirin 81 Mg Ectab) 81 mg PO BID CATE Stop: 09/22/21 20:59 Last Admin: 08/25/21 08:01 Dose: 81 mg Documented by: Bisacodyl (Bisacodyl 10 Mg Supp) 10 mg NH DAILY PRN PRN Reason: Constipation Stop: 09/21/21 16:36 Calcium Carbonate (Calcium Carbonate 1,250 Mg/5 Ml Udc) 625 mg PO DAILY CATE Stop: 09/24/21 08:59 Last Admin: 08/25/21 08:01 Dose: 625 mg Documented by: Magnesium Hydroxide (Magnesium Hydroxide Susp 30 Ml Udc) 30 ml PO Q6H PRN PRN Reason: Constipation Stop: 09/21/21 16:36 Morphine Sulfate (Morphine Sulfate 4 Mg/Ml 1 Ml Carp\Vial) 4 mg IV Q3H PRN PRN Reason: Pain (6,7,8,9,10) Stop: 09/05/21 16:36 Last Admin: 08/22/21 20:02 Dose: 4 mg Documented by: Naloxone HCl (Naloxone Hcl 0.4 Mg/1 Ml Vial/Carp) 0.1 mg IV UD PRN PRN Reason: Opiate Overdose Stop: 09/21/21 16:36 Ondansetron HCl (Ondansetron Inj 2 Mg/Ml 2 Ml Vial) 4 mg IV Q6H PRN PRN Reason: Nausea Stop: 09/21/21 16:36 Oxycodone HCl (Oxycodone Hcl Ir 5 Mg Tab (Immediate Release)) 5 mg PO Q4H PRN PRN Reason: MODERATE Pain (4,5,6) & Pre PT Stop: 09/05/21 16:36 Last Admin: 08/24/21 22:09 Dose: 5 mg Documented by: Oxycodone HCl (Oxycodone Hcl Ir 5 Mg Tab (Immediate Release)) 10 mg PO Q4H PRN PRN Reason: SEVERE Pain (7,8,9,10) Stop: 09/05/21 16:36 Last Admin: 08/25/21 08:03 Dose: 10 mg Documented by: Polyethylene Glycol (Polyethylene (Miralax) 17 Gm Pack) 17 gm PO DAILY PRN PRN Reason: Constipation Stop: 09/21/21 16:36 Senna/Docusate Sodium (Docusate Sodium/Senna 50/8.6mg Tab) 2 tab PO HS [facility] Stop: 09/21/21 20:59 Last Admin: 08/24/21 20:03 Dose: 2 tab Documented by: Tizanidine HCl (Tizanidine Hcl 4 Mg Tablet) 2 mg PO TID PRN PRN Reason: spasm Stop: 09/21/21 21:03 Last Admin: 08/25/21 08:02 Dose: 2 mg Documented by: Vitamin D (Cholecalciferol 5,000 Units 125 Mcg Tab) 5,000 units PO QAM [facility] Stop: 09/23/21 08:59 Last Admin: 08/25/21 08:01 Dose: 5,000 units Documented by: (1) Intertrochanteric fracture of right femur Encounter type: initial encounter Fracture alignment: nondisplaced Fracture type: closed Qualified Code(s): S72.144A - Nondisplaced intertrochanteric fracture of right femur, initial encounter for closed fracture
[2021-08-25] MEDS: KETOROLAC 30 MG/ML VIAL IV SCH ×2 (14:13→20:34)
--- NOTE | 2021-08-25 15:38 | Orthopedic Progress Note ---
Date of Service August 25, 2021 Assessment & Plan (1) Intertrochanteric fracture of right femur: Plan: POD 2 s/p Right TFN PT/OT protocol. WBAT. DVT prophylaxis - ASA bid, SCD's Pain management -oxycodone has been added to his pain regimen as well as morphine sulfate. I will also start him on a short course of Toradol for the next 24 hours to see if that will help him with his pain control. DC planning -possible placement for fdc facility for short period of time. Admission and Anticipated Discharge Date Admission Date: August 22, 2021 Subjective Postop day 2 Patient is sitting up in bed getting ready to start a therapy session. States he is struggling a little bit off and on with pain control and ambulation. He has changed his mind to the point where he was [facility] period time however he apparently did not qualify [facility]. He is now looking at his options for fdc facilities. No other complaints at this time. Physical Exam Physical Exam: Silverlon dressing remains clean, dry, and intact. Thigh has some swelling but is nontender and is soft. Calves are soft nontender. Neurovascular intact. Toes are mobile. Results & Data ([facility]) Vital Signs (Past 12 Hours) Vital Signs Temp Pulse Resp BP Pulse Ox 08/25/21 15:10 36.4 C L 70 16 115/70 95 08/25/21 11:21 36.2 C L 70 18 115/66 95 08/25/21 08:10 36.2 C L 70 18 115/66 95 Laboratory Results Laboratory Results WBC 9.54 K/uL (4.8-10.8) 08/24/21 05:38 RBC 4.79 M/uL (4.7-6.1) 08/24/21 05:38 Hgb 14.5 g/dL (14.0-18.0) 08/24/21 05:38 Hct 41.0 % (42-52) L 08/24/21 05:38 MCV 85.6 fL (80-100) 08/24/21 05:38 MCH 30.3 pg (25-34) 08/24/21 05:38 MCHC 35.4 g/dL (32-36) 08/24/21 05:38 RDW Std Deviation 40.0 fL (36.4-46.3) 08/24/21 05:38 RDW Coeff of David 12.7 % (11.5-14.5) 08/24/21 05:38 Plt Count 280 K/uL (130-400) 08/24/21 05:38 MPV 9.8 fL (7.4-10.4) 08/24/21 05:38 Immature Gran % (Auto) 0.1 % 08/24/21 05:38 Neut % (Auto) 88.3 % 08/24/21 05:38 Lymph % (Auto) 5.3 % 08/24/21 05:38 [place] % (Auto) 6.3 % 08/24/21 05:38 Eos % (Auto) 0.0 % 08/24/21 05:38 Baso % (Auto) 0.0 % 08/24/21 05:38 Neut # (Auto) 8.42 K/uL (1.4-6.5) H 08/24/21 05:38 Lymph # (Auto) 0.51 K/uL (1.2-3.4) L 08/24/21 05:38 [place] # (Auto) 0.60 K/uL (0.11-0.59) H 08/24/21 05:38 Eos # (Auto) 0.00 K/uL (0-0.5) 08/24/21 05:38 Baso # (Auto) 0.00 K/uL (0-0.2) 08/24/21 05:38 Immature Gran # (Auto) 0.01 K/uL (0.00-0.02) 08/24/21 05:38 PT 12.1 Seconds (9.0-12.0) H 08/22/21 15:01 INR 1.1 (0.9-1.1) 08/22/21 15:01 APTT 20.3 Seconds (21.0-31.0) L 08/22/21 15:01 PTT Ratio 0.7 08/22/21 15:01 Sodium 135 mmol/L (136-145) L 08/24/21 05:38 Potassium 4.2 mmol/L (3.5-5.1) 08/24/21 05:38 Chloride 100 mmol/L (98-107) 08/24/21 05:38 Carbon Dioxide 30 mmol/L (21-32) 08/24/21 05:38 Anion Gap 5 (3-11) 08/24/21 05:38 BUN 12 mg/dl (6-23) 08/24/21 05:38 Creatinine 0.88 mg/dl (0.6-1.4) 08/24/21 05:38 Est Cr Clr Drug Dosing 102.2 ml/min 08/24/21 05:38 Est GFR ( Amer) 106.0 ml/min 08/24/21 05:38 Est GFR (Non-Af Amer) 91.4 ml/min 08/24/21 05:38 BUN/Creatinine Ratio 13.6 (10-20) 08/24/21 05:38 Glucose 126 mg/dl (70-99(Fasting)) H 08/24/21 05:38 Calcium 9.3 mg/dl (8.5-10.1) 08/24/21 05:38 25-OH Vitamin D Total 19.0 ng/ml (30-100) L 08/24/21 05:38 Urine Color Yellow 08/22/21 20:54 Urine Appearance Clear (Clear) 08/22/21 20:54 Urine pH 5.0 (4.5-7.5) 08/22/21 20:54 Ur Specific [place] 1.019 (1.000-1.030) 08/22/21 20:54 Urine Protein Negative (Negative) 08/22/21 20:54 Urine Glucose (UA) Negative (Negative) 08/22/21 20:54 Urine Ketones Trace (Negative) H 08/22/21 20:54 Urine Blood Negative (Negative) 08/22/21 20:54 Urine Nitrite Negative (Negative) 08/22/21 20:54 Urine Bilirubin Negative (Negative) 08/22/21 20:54 Urine Urobilinogen Negative (Negative) 08/22/21 20:54 Ur Leukocyte Esterase Negative (Negative) 08/22/21 20:54 Nasal Screen MRSA (PCR) Negative (Negative) 08/22/21 Unknown SARS-CoV-2, RNA, NAAT NEGATIVE (NEGATIVE) 08/22/21 15:01 Blood Type AB Positive 08/22/21 16:48 Antibody Screen NEGATIVE 08/22/21 16:48 (1) Intertrochanteric fracture of right femur Encounter type: initial encounter Fracture alignment: nondisplaced Fracture type: closed Qualified Code(s): S72.144A - Nondisplaced intertrochanteric fracture of right femur, initial encounter for closed fracture
[2021-08-25] MEDS: DOCUSATE SODIUM/SENNA 50/8.6MG TAB PO SCH (20:34)
[2021-08-26] MEDS: oxyCODONE HCL IR 5 MG TAB (IMMEDIATE RELEASE) PO PRN ×2 (00:16→04:46)
[2021-08-26] MEDS: KETOROLAC 30 MG/ML VIAL IV SCH ×3 (01:52→08:47)
[2021-08-26 07:07] LABS: Basophils # (auto) 0.03 K/uL (0-0.2); Basophils % (auto) 0.5 %; Eosinophils # (auto) 0.24 K/uL (0-0.5); Eosinophils % (auto) 3.9 %; Hematocrit (blood only) 35.7 % (42-52); Hemoglobin 12.1 g/dL (14.0-18.0); Immature Granulocytes # (auto) 0.01 K/uL (0.00-0.02); Immature Granulocytes % (auto) 0.2 %; Lymphocytes # (auto) 1.59 K/uL (1.2-3.4); Lymphocytes % (auto) 25.9 %; Mean Corpuscular Hemoglobin 29.5 pg (25-34); Mean Corpuscular Hgb Conc 33.9 g/dL (32-36); Mean Corpuscular Volume 87.1 fL (80-100); Mean Platelet Volume 9.7 fL (7.4-10.4); Monocytes # (auto) 0.93 K/uL (0.11-0.59); Monocytes % (auto) 15.1 %; Neutrophils # (auto) 3.34 K/uL (1.4-6.5); Neutrophils % (auto) 54.4 %; Platelet Count 232 K/uL (130-400); RDW Coefficient of Variation 12.9 % (11.5-14.5); RDW Standard Deviation 41.6 fL (36.4-46.3); White Blood Count 6.14 K/uL (4.8-10.8)
[2021-08-26 07:36] LABS: BUN Creatinine Ratio 22.9 (10-20); Calcium 8.5 mg/dl (8.5-10.1); Creatinine Clr Calc Pharmacy 108.4 ml/min; Est GFR (African American) 108.5 ml/min; Est GFR (Non-African American) 93.6 ml/min; Magnesium 1.8 mg/dl (1.7-2.4); Potassium 3.9 mmol/L (3.5-5.1)
[2021-08-26] MEDS: ASPIRIN 81 MG ECTAB PO SCH (10:25)
[2021-08-26] MEDS: CHOLECALCIFEROL 5,000 UNITS 125 MCG TAB PO SCH (10:26)
[2021-08-26] MEDS: CALCIUM CARBONATE 1,250 MG/5 ML UDC PO SCH (11:38)
--- NOTE | 2021-08-26 12:22 | Orthopedic Progress Note ---
Date of Service August 26, 2021 Assessment & Plan (1) Intertrochanteric fracture of right femur: Plan: POD 3 s/p Right TFN PT/OT protocol. WBAT. Much better progression with PT today. Pt feeling more confident overall. DVT prophylaxis - ASA bid, SCD's Pain management - As written DC planning -possible placement for senior care facility for short period of time. Ok from Ortho standpoint for DC. Admission and Anticipated Discharge Date Admission Date: August 22, 2021 Subjective POD 3 Pt sitting up in bed. Feeling better today. I saw the patient earlier in the AM progressing with his PT. Pain control is better. State he was able to do steps with crutches. Hoping to go home today. Physical Exam Physical Exam: Silverlon dressings remain intact. No drainage. Thigh with swelling but soft,NT. Calves soft, NT. NV intact. Toes mobile. Results & Data ([facility]) Vital Signs (Past 12 Hours) Vital Signs Temp Pulse Resp BP Pulse Ox 08/26/21 08:45 36.6 C 54 L 12 128/80 98 (1) Intertrochanteric fracture of right femur Encounter type: initial encounter Fracture alignment: nondisplaced Fracture type: closed Qualified Code(s): S72.144A - Nondisplaced intertrochanteric fracture of right femur, initial encounter for closed fracture
--- NOTE | 2021-08-26 17:25 | Discharge Summary ---
Date of Service August 26, 2021 Admission HPI Per Admitting Provider This is a 61-year-old male who is otherwise healthy who presents to ED after sustaining a fall while skiing at [employer] prior to arrival with subsequent right hip pain. 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 He was trying out a new pair of skis that he was getting used in his group home. While skiing he fell on a hard surface on his right side and immediately had pain. He was skiing with his son and was brought to ED. Patient is otherwise healthy at baseline. He does not take any medications on a regular basis. He does chew tobacco, but denies smoking. He does occasionally use alcohol but nothing on a regular basis. Currently he complains of pain 3 out of 10. Pain is worse with movement, and improved with rest. He does have prior history of bilateral knee replacements but no other fractures. He denies any recent illness, fever, chills, sweats, lightheadedness, dizziness, chest pain, shortness of breath, cou gh, URI symptoms, nausea, vomiting, abdominal pain, changes bowel or urinary habits. He is very active at baseline and skis frequently. He denies any chest pain or shortness of breath with exertion. He denies any prior history of hypertension, hyperlipidemia or CAD. He also denies any family history of CAD. Admission Exam Per Admitting Provider Constitutional: WD/WN, vitals as above, appears in pain, NAD, sitting up in bed, pleasant, conversing easily Head: Normocephalic, Atraumatic Eyes: PERRL, conjunctivae normal, anicteric sclerae ENMT: external ear and nose normal, oropharynx normal Neck: trachea midline, no thyromegaly normal visual inspection Respiratory: normal respiratory effort, lungs clear to auscultation, no wheeze, rales, rhonchi. Normal insp/exp effort, no accessory muscle use Cardiovascular: RRR, no murmur, no edema Vessels: no JVD or carotid bruit Chest: normal inspection of chest Abdomen: normal bowel sounds, soft, nontender, no hepatosplenomegaly Musculoskeletal: Pain to palpation to right lateral hip, no cyanosis or clubbing, active range of motion to bilateral upper extremities, and left lower extremity Skin: no rashes, warm and dry normal turgor Neurologic: PERRL, EOMI, accommodation nl, no face palsy, no dysarthria CN's II-XI intact bilaterally and moves all extremities Psychiatric: A+Ox3, euthymic affect Lymphatic: no cervical or axillary lymphadenopathy : deferred Principal Diagnosis Acute right intertrochanteric fracture Discharge Exam General: Lying comfortably in bed, not in distress, on room air HEENT: EOMI, TRISTAN, MMM Chest: Clear breath sounds bilaterally, no wheezes or crackles CVS: Regular rate and rhythm, normal heart sounds, no murmur Abdomen: Soft, non tender, not distended, normal bowel sounds Neuro: Awake, alert, oriented, conversing well, non focal Extremities: Right hip/thigh incision site clean dry intact. No cyanosis, clubbing or edema Discharge Data Allergies Allergy/AdvReac Type Severity Reaction Status Date / Time No Known Allergies Allergy Verified 08/22/21 15:17 Consultations 08/22/21 14:49 Consult Orthopedic Surgery Routine 08/22/21 15:00 ED Decision to Admit Stat 08/22/21 16:37 Consult Anesthesiology Routine Procedures Performed Operation Date: 08/23/21 12:20 Actual Procedures p Right Troch Nail(Right) - Memo Rangel, DO Ordered Studies 08/23/21 16:00 FL hip RT 2-3V Routine Hospital Course (1) Intertrochanteric fracture of right femur: (2) Tobacco abuse: 61 yr old otherwise healthy male except for chewing tobacco use who presented to ED after sustaining a fall while skiing leading to right intertrochanteric femur fracture Acute mildly impacted nondisplaced intertrochanteric fracture of right femur, closed - S/P unveventful R TFN POD #[address] Joshua Peña - Declined by [facility]. Patient did not want to go to SNF. He is improving and would like to go home with home PT and help from his friends. Crutches arranged. - Pain medication and DVT prophylaxis prescribed by ortho - F/u with ortho as OP Leukocytosis- on admission, likely reactive. Resolved Vitamin D deficiency vit d 19. Continue OTC supplementation. Recommend OP DEXA scan as he never had in the past Tobacco abuse- chews snuff. Recommended cessation. Declined nicotine patch Home Health Attestation I certify that this patient is under my care and that I, or a physicians respiratory therapist assistant working with me, had a face to-face encounter that meets the home health [id number] encounter requirements with this patient. The encounter with the patient was in whole, or in part, for the following medical condition, which is the primary reason for home health care (list medical condition): right hip fracture I certify that, based on my findings, the following services are medically necessary home health services: My clinical findings support the need for the above services because: OT Assess ADL Status and Restore Function w ADLs PT Assessment for Endurance / Balance / Strength PT Eval for Safety and Mobility PT Eval for Safety, Gait Training, Assistive Devices PT Gait and Balance Training, Strengthening and Safety Further, I certify that my clinical findings support that this patient is homebound (i.e. absences from home require considerable and taxing effort and are for medical reasons or jainism services or infrequently or of short duration when for other reasons) because: Supportive Aid - Crutches Transportation Assistance/Unable to Leave Home Unassisted Certification for Home Health Services: Based on the above findings, I certify that this patient is confined to the home and needs intermittent residential care, physical therapy and/or speech therapy or continues to need occupational therapy. The patient is under my care, and I have initiated the establishment of the plan of care. This patient will be followed by a physician who will periodically review the plan of care. Total Time Total Time Spent Total Time Spent (In Minutes): 40 Discharge Plan Discharge Items Patient Disposition: Home - Home Health Services Reason For Visit: R IMPACTED FEMUR FX Discharge Diagnosis: Right Intertrochanteric Hip Fx. Activity: Per Instructions section Weightbearing: Right weightbearing Weightbearing Comment: as tolerated with walker or crutches Non-emergency contact: Surgeon Call non-emergency contact if: your pain is not controlled, your temperature is above 101.5, your wound has increased redness and your wound has increased drainage Follow-up/Referrals: Eliana Koroma CRNP [Nurse Practitioner] - (Follow up in 6 weeks for possible need for Osteoporosis workup. ) James Valle DO [Primary Care Provider] - (Date & Time 08/27/2021 12:00 PM Provider James Valle DO [facility] ) Memo Rangel DO [Surgeon] - 09/02/21 10:00 am (Follow up in 10-14 days from the day of surgery. ) Diet: Regular Addtl Attending Provider Instructions: you can take oxycodone Addtl Licensed Psychologist Provider Instructions: [facility] DISCHARGE INSTRUCTIONS: HIP FRACTURE SELF CARE INSTRUCTIONS: A. You are to ambulate with a walker or crutches for approximately 6 weeks. B. You are WEIGHT BEARING TOLERATED on your operative lower extremity for at least 6 weeks. C. Wear low heeled shoes with non-slip soles D. Be sure that your floors are free of things that could trip you throw rugs, electrical cords, and small objects. Avoid wet and waxed floors, especially with crutches/walker/cane. E. Try to walk several times a day with rest periods between. F. You may shower 48 hours after surgery and get the incision area wet, but DO NOT soak or submerge incision area in water. (No baths, swimming pools, hot tubs) G. Silverlon- This is a large adhesive bandage that contains silver ions. This helps your incision heal by fighting off bacteria and protecting it from the outside environment. You are permitted to shower with this dressing. This will remain on your incision for 7 days and then should be removed. Some visible blood or drainage through the dressing window is normal. If there is significant drainage or leaking noted before the 7 days notify your doctor's office immediately. Once removed, keep incision clean and dry. If there is any drainage or redness noted, please call your surgeon. H. Do NOT apply soap or any ointment/lotions directly over incision. I. You may use ice as needed to operative site. SPECIAL CARE INSTRUCTIONS: VERY IMPORTANT TO READ AND REVIEW A. You may be at risk for phlebitis or blood clots. a. Wear surgical stockings (LUAN hose) for 2 weeks after surgery to improve circulation and reduce swelling. b. Take ASPIRIN 81mg orally once in the morning and evening for 4 weeks or as directed. This is your blood thinner. B. There are a few signs you need to watch for after you are home. Call [facility] [place] at [phone] if you experience any of the following: a. If you have a temperature of 101 degrees or higher. b. Sudden increase in pain in your hip not relieved by rest or pain medication. c. Any fluid or drainage from the incision; redness of the incision. d. Shortness of breath or chest pain. C. Call your physician if: a. Temperature is greater than 101 degrees (F). b. Pain is not relieved by prescribed pain medications. c. Increase drainage or redness from incision. d. Unanswered questions or concerns. D. Pain Medication: a. You will be prescribed pain medication upon discharge that should last till your first post-operative appointment. b. If you experience nausea and/or skin rash, discontinue this medication and contact our office for an alternative medication. c. Caution- narcotic pain medication can cause constipation. FOLLOW UP VISIT: Please call [facility] [place] at [phone] to schedule a follow up appointment 10-14 days from the date of your surgery date. Pending Studies at Discharge: No Stand-Alone Forms: [facility] [email or web address], Smoking Cessation Medications and DC Order Prescriptions: New aspirin 81 mg Tablet,Delayed Release (Dr/Ec) 81 mg PO BID 30 Days Qty: 60 RF: 0 oxycodone 5 mg Tablet 5 mg PO Q4H MDD 6 PRN (Reason: pain) Qty: 30 RF: 0 Discharge Orders: Discharge Order (Routine); Ordered 08/26/21 Ordered By: Umair Fong Admission Data Admit Date/Time: 08/22/21 14:49 Attending Provider: Umair Fong Admit Provider: Светлана Dubose Primary Care Provider: James Valle Other Providers: Allison Carty ; Memo Rangel ; Светлана Dubose ; Maureen Berger ; [facility] ; [facility] ; [facility] Other Interventions: Discharge Summary Assessment (RN) Last Done: 08/26/21 13:28
== END 2021-08-26 14:47 | disposition home health service (06) | DRG 482 ==
LOC: ED 13:18 → 3N 14:49 → SUATTDRO 14:49 → 3N 16:06